=== PATIENT | male | born 1950 | race Caucasian/White ===

== ENCOUNTER 2021-01-22 15:26 | Inpatient (IN) | payer MEDICARE ==
[~2021-01-22] VITALS: Ht 170.2 cm; Wt 79.8 kg
[~2021-01-22 15:26] MED LIST: ACETAMINOPHEN 325 MG TABLET PO PRN; AMLO-250 PO; ATOR40TA70 PO; BISACODYL 10 MG SUPP (DULCOLAX) PR PRN; CALC-823 PO; CALCIUM CARBONATE 500 MG (TUMS) TAB.CHEW PO PRN; CETI10TA17 PO; CLOP75TA28 PO; DOCUSATE SODIUM 100 MG (COLACE) CAP PO PRN; DOXA8TAB73 PO; FAMO20TA3 PO; FLEET ENEMA ADULT 1 EA BTL PR PRN; ISOS30TA82 PO; LACTULOSE SYRUP 10GM/15ML (ENULOSE) 30ML UDC PO PRN; LEVE500T99 PO; LOPERAMIDE 2 MG (IMODIUM) TABLET PO PRN; LOSA50TA63 PO; ONDANSETRON 4 MG (ZOFRAN) ORAL DISSOLVE TAB PO PRN; diphenhydrAMINE 25 MG TAB (BENADRYL) PO PRN; guaiFENesin/CODEINE (ROBITUSSIN AC) 10ML UDC PO PRN
--- NOTE | 2021-01-22 15:56 | Physical Therapy Evaluation ---
PT Evaluation-General Medical Diagnosis Admission Date Jan 22, 2021 at 15:26 Medical Diagnosis: IVH/IPH Onset Date: Jan 20, 2021 Therapy Diagnosis Therapy Diagnosis: impaired mobility, strength, endurance, balance Referral Physician: Lorenza Yates DO Reason for Referral: Evaluation/Treatment Medical History Pertinent Medical History: HTN Reviewed History: Yes Social History Home: Single Level Current Living Status: Spouse Entry Into Home: Ramp Patient has a disabled son who uses the ramp. He also has 2 steps to enter in the front or back with no handrails. Prior Prior Level of Function SCALE: Activities may be completed with or without assistive devices. 4-Idbzemcriu-sctsgxh completes the activity by him/herself with no assistance from a helper. 5-Set-up or Clean-up Assistance-helper sets up or cleans up; patient completes activity. [place] assists only prior to or following the activity. 4-Supervision or Touching Assistance-helper provides verbal cues and/or touching/steadying and/or contact guard assistance as patient completes activity. Assistance may be provided throughout the activity or intermittently. 3-Partial/Moderate Assistance-helper does LESS THAN HALF the effort. [place] lifts, holds or supports trunk or limbs, but provides less than half the effort. 2-Substantial/Maximal Assistance-helper does MORE THAN HALF the effort. [place] lifts or holds trunk or limbs and provides more than half the effort. 9-Ypdkvtydf-yxhieg does ALL the effort. Patient does none of the effort to complete the activity. Or, the assistance of 2 or more helpers is required for the patient to complete the activity. If activity was not attempted, code reason: 7-Patient Refused. 9-Not Applicable-not attempted and the patient did not perform the activity before the current illness, exacerbation or injury. 10-Not Attempted due to Environmental Limitations-(lack of equipment, weather restraints, etc.). 88-Not Attempted due to Medical Conditions or Safety Concerns. Bed Mobility: 6 Transfers (B,C,W/C): 6 Gait: 6 Stairs: 6 Indoor Mobility (Ambulation): Independent Stairs: Independent PT Evaluation-Current Subjective Patient in bed pre tx, agrees to PT, has no complaints of pain Pt/Family Goals to be independent at home Objective Patient Orientation: Person, Mumbles ROM/Strength ROM Lower Extremities WNL Strength Lower Extremities LLE (hip flexion 3+/5, knee flexion 4/5, knee extension 4/5, dorsiflexion 4+/5), RLE (hip flexion 3+/5, knee flexion 4+/5, knee extension 4+/5, dorsiflexion 4+/5) Neuromuscular (Tone, Coordination, Reflexes) Patient seems to have intact peripheral vision but had trouble tracking on both sides. Sensory Hearing: Functional Sensation Right Lower Extremit: Intact Sensation Left Lower Extremity: Intact Transfers Roll Left & Right (QC): 6 Sit to Lying (QC): 6 Lying to Sitting/Side of Bed(Q: 6 Sit to Stand (QC): 4 Chair/Vqn-oj-Jakhm Xfer(QC): 4 Toilet Transfer (QC): 4 Car Transfer (QC): 4 Patient performs bed mobility and supine <-> sit with independence, sit <-> stand and transfers CGA, car transfer CGA. Patient needs cues for hand placement and safety. Gait Does the Patient Walk?: Yes Mode of Locomotion: Walk Anticipated Mode of Locomotion: Walk Walk 10 feet (QC): 4 Walk 50 ft with 2 Turns(QC): 4 Walk 150 ft (QC): 4 Walking 10ft/uneven surface-QC: 4 Distance: 150' Gait Assistive Device: FWW Comments/Gait Description Patient can ambulate 150' with CGA (including 50' with at least 2 turns of 90 degrees and 10' over an uneven surface). Patient has decreased coordination with stepping with his right leg, unsteady but no complete LOB. Wheelchair Training Does the Pt Use a Wheelchair?: No Wheel 50 ft with 2 turns (QC): 9 Wheel 150 ft (QC): 9 Stairs #of Steps: 1 1 Step (curb) (QC): 4 4 Steps (QC): 88 12 Steps (QC): 88 Patient can go up and down 1 step using a rolling walker with CGA, cues for foot placement and safety. Balance Sitting Static: Normal Sitting Dynamic: Normal Standing Static: Fair Standing Dynamic: Fair Picking up an Object (QC): 4 Assessment/Needs Patient has impaired mobility, strength, endurance, balance. Patient in bed post tx with nurse call, phone, tray, bed alarm on. Patient is moderately impulsive, decreased coordination in right leg with ambulation, CGA with most mobility but needs cues for safety. Rehab Potential: Fair PT Short Term Goals Short Term Goals Time Frame: Jan 29, 2021 Roll Left & Right: 6 Sit to lyin Lying to sitting on side of be: 6 Sit to stand: 4 (SBA) Chair/pms-ej-llsdb transfer: 4 (SBA) Walk 10 feet: 4 (SA) Walk 50 feet with two turns: 4 (SBA) PT Mcc Goals Mcc Goals PT Audioprosthologist Goals Time Frame: Feb 12, 2021 Roll Left & Right (QC): 6 Sit to Lying (QC): 6 Lying-Sitting on Side/Bed(QC): 6 Sit to Stand (QC): 5 Chair/[place]oz-uk-Pomcn Xfer(QC): 5 Toilet Transfer (QC): 5 Car Transfer (QC): 5 Does the Patient Walk: Yes Walk 10 feet (QC): 5 Walk 50ft with 2 Turns (QC): 5 Walk 150 ft (QC): 5 Walking 10ft on Uneven Surface: 5 1 Step (curb) (QC): 4 4 Steps (QC): 4 12 Steps (QC): 88 Picking up an Object (QC): 4 Wheel 50 feet with 2 turns (QC: 9 Wheel 150 feet: 9 PT Plan Problem List Problem List: Activity Tolerance, Functional Strength, Safety, Balance, Gait, Transfer, Bed Mobility, ROM Treatment/Plan Treatment Plan: Continue Plan of Care Treatment Plan: Bed Mobility, Education, Functional Activity Rizwan, Functional Strength, Group Therapy, Gait, Safety, Therapeutic Exercise, Transfers Treatment Duration: Feb 12, 2021 Frequency: At least 5 of 7 days/Wk (IRF) Estimated Hrs Per Day: 1.5 hours per day Patient and/or Family Agrees t: Yes Safety Risks/Education Patient Education: Gait Training, Transfer Techniques, Steps, Correct Positioning, Safety Issues Teaching Recipient: Patient Teaching Methods: Demonstration, Discussion Response to Teaching: Reinforcement Needed Discharge Recommendations Plan Patient will perform bed mobility and transfer training, balance and endurance training, functional strengthening, stair training, gait training, and education, to improve functional mobility and independence at home. Therapy Discharge Recommendati: Home & Family Time/GCodes Time In: 1530 Time Out: 1540 Total Billed Treatment 1 visit MAC LOBATO PT Jan 22, 2021 15:56
--- NOTE | 2021-01-22 15:57 | Occupational Therapy Eval ---
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 01/01/21 L frontal bur hole placement with external ventricular drain. 01/13 ventriculostomy removed. 01/22 transfer to [facility] for continued medication management and skilled therapy. Social History Home: Single Level Current Living Status: Spouse Entry Into Home: Ramp (on porch), Stairs With Railing Steps Into Home: 2 ADL-Prior Level of Function SCALE: Activities may be completed with or without assistive devices. 9-Rktncetpph-xxbbuvy completes the activity by him/herself with no assistance from a helper. 5-Set-up or Clean-up Assistance-helper sets up or cleans up; patient completes activity. [place] assists only prior to or following the activity. 4-Supervision or Touching Assistance-helper provides verbal cues and/or touching/steadying and/or contact guard assistance as patient completes activity. Assistance may be provided throughout the activity or intermittently. 3-Partial/Moderate Assistance-helper does LESS THAN HALF the effort. [place] lifts, holds or supports trunk or limbs, but provides less than half the effort. 2-Substantial/Maximal Assistance-helper does MORE THAN HALF the effort. [place] lifts or holds trunk or limbs and provides more than half the effort. 4-Soigxqsjr-fgaxvs does ALL the effort. Patient does none of the effort to complete the activity. Or, the assistance of 2 or more helpers is required for the patient to complete the activity. If activity was not attempted, code reason: 7-Patient Refused. 9-Not Applicable-not attempted and the patient did not perform the activity befo re the current illness, exacerbation or injury. 10-Not Attempted due to Environmental Limitations-(lack of equipment, weather re straints, etc.). 88-Not Attempted due to Medical Conditions or Safety Concerns. ADL PLOF Comments Pt indicates IND with ADLs and functional mobility, no AD/AE. Pt's primarily completes cooking and cleaning. Self Care: Independent Functional Cognition: Independent DME/Equipment: Bath Chair, Shower OT Current Status Subjective Pt agreeable to OT evaluation, does not report pain during tx. Mental Status/Objective Patient Orientation: Person, Place, Situation Attachments: Sahu Catheter Current Glasses/Contacts: Yes (reading) Hearing Aids: No Dentures/Partials: No Hand Dominance: Right Upper Extremity ROM WFL, BUE shoulder flexion to approx 140 degrees Upper Extremity Coordination WFL Upper Extremity Sensation WFL Upper Extremity Strength grossly 3+/5 BUEs ADL-Treatment Eating (QC): 7 Oral Hygiene (QC): 7 Shower/Bathe Self (QC): 7 Upper Body Dressing (QC): 7 Lower Body Dressing (QC): 7 On/Off Footwear (QC): 7 Toileting Hygiene (QC): 7 Other Treatments OT evaluation complete. OT educated pt on purpose and benefit of OT, he verbalized understanding. Pt and family provided information about PLOF and home set up, and participated in UE screen. Pt educated on ARU process and expectations. Per PT evalaution, bed mobility and supine <-> sit IND, sit <-> stand CGA, car transfer CGA. Skilled cues for hand placement and safety. Pt performed functional mobility 150' with CGA (including 10' over uneven surface). Post OT eval, pt laying in bed, call light in reach and all need met. Bed alarm on. Education OT Patient Education: Correct positioning, Modified ADL techniques, Progress toward Goal/Update tx plan, Purpose of tx/functional activities, Rehab process Teaching Recipient: Patient Teaching Methods: Discussion Response to Teaching: Verbalize Understanding OT Short Term Goals Short Term Goals Time Frame: Feb 02, 2021 Oral hygiene: 5 Toileting hygiene: 4 Shower/bathe self: 4 Upper body dressin Lower body dressin OT Facility Sales And Admin Goals Residential Goals Time Frame: Feb 20, 2021 Eating (QC): 6 Oral Hygiene (QC): 6 Toileting Hygiene (QC): 6 Shower/Bathe Self (QC): 6 Upper Body Dressing (QC): 6 Lower Body Dressing (QC): 6 On/Off Footwear (QC): 6 Additional Goals: 1-Demonstrate ADL Tasks, 2-Verbalize Understanding, 3- ImproveStrength/Rizwan 1=Demonstrate adherence to instructed precautions during ADL tasks. 2=Patient will verbalize/demonstrate understanding of assistive devices/modifications for ADL. 3=Patient will improve strength/tolerance for activity to enable patient to perform ADL's. OT Education/Plan Problem List/Assessment Assessment: Decreased Activ Tolerance, Decreased UE Strength, Impaired Funct B alance, Impaired I ADL's, Impaired Self-Care Skills Discharge Recommendations Plan/Recommendations: Continue POC Treatment Plan/Plan of Care Patient would benefit from OT for education, treatment and training to promote independence in ADL's, mobility, safety and/or upper extremity function for ADL's. Plan of Care: ADL Retraining, Functional Mobility, Group Exercise/Act as Ind, UE Funct Exercise/Act Treatment Duration: Feb 20, 2021 Frequency: At least 5 of 7 days/Wk (IRF) Estimated Hrs Per Day: 1.5 hours per day Rehab Potential: Fair Time/GCodes Start Time: 15:40 Stop Time: 15:50 Total Time Billed (hr/min): 10 Billed Treatment Time 1, ELISEO CR OT Jan 22, 2021 15:57
--- NOTE | 2021-01-22 18:13 | PM&R Post Admission Assessment ---
PM&R Date of Visit: Jan 22, 2021 Time of Visit: 18:30 History of Present Illness CC: Hemmorhagic stroke HPI: This is a 70yoWM with a history of right hemorrhagic stroke with extension into ventricles s/p left frontal del hole placement of the external ventricular ostomy on 01/01 with removal on 01/13 and residual left-sided weakness and anemia in need of further evaluation and strengthening prior to going home with his . Patient arise from [place]. He did have a sitter there most of the time. Upon arrival he pulled out his Sahu catheter. We will initiate antipsychotics as needed for agitation and dementia related issues. In and out caths will be performed. Urology will be consulted. Past Qzxantu-Pargpr-Ywuvnv Hx Past Med/Social Hx: Reviewed Nursing Past Med/Soc Hx, Reviewed and Corrections made Patient Social History Marrital Status: Employed/Student: retired (Construction) Alcohol Use: Past History Alcohol Beverage of Choice: Beer Smoking Status: Former Smoker Past Medical History Cardiac: High Cholesterol, Hypertension Neurological: Stroke Prior Level of Function Bed Mobility: 6 Transfers: 6 Gait: 6 Stairs: 6 Indoor Mobility (Ambulation): Independent Stairs: Independent Self Care: Independent Functional Cognition: Independent Current Level of Fuctioning Roll Left to Right: 6 Sit to Lyin Lying to Sitting/Side of Bed: 6 Sit to Stand: 4 Chair/Hdx-ti-Dhzqe Xfer: 4 Car Transfer: 4 Does the Patient Walk: Yes Mode of Locomotion: Walk Anticipated Mode of Locomotion: Walk Walk 10 feet: 4 Walk 50 ft with 2 Turns: 4 Walk 150 ft: 4 Walking 10ft on uneven surface: 4 Gait Assistive Device: FWW Does the Pt Use a Wheelchair: No Wheel 50 ft with 2 turns: 9 Wheel 150 ft: 9 #of Steps: 1 1 Step (curb): 4 4 Steps: 88 12 Steps: 88 Picking up an Object: 4 Eatin Oral Hygiene: 7 Shower/Bathe Self: 7 Upper Body Dressin Lower Body Dressin On/Off Footwear: 7 Toileting Hygiene: 7 PM&R Allergy/Meds/Data Review Allergies Coded Allergies: No Known Drug Allergies (Unverified , 01/22/21) Home Medications Scheduled Amlodipine Besylate (Amlodipine Besylate), 5 MG PO DAILY, (Reported) Atorvastatin Calcium (Atorvastatin Calcium), 40 MG PO DAILY, (Reported) Cetirizine HCl (Cetirizine HCl), 10 MG PO DAILY, (Reported) Clopidogrel Bisulfate (Clopidogrel), 75 MG PO DAILY, (Reported) Doxazosin Mesylate (Doxazosin Mesylate), 8 MG PO DAILY, (Reported) Famotidine (Acid Compressed Gas Plant Worker (FAMOTIDINE)), 20 MG PO DAILY, (Reported) Isosorbide Mononitrate (Isosorbide Mononitrate ER), 30 MG PO DAILY, (Reported) Levetiracetam (Keppra), 500 MG PO Q12H, (Reported) Losartan Potassium (Losartan Potassium), 50 MG PO DAILY, (Reported) Losartan Potassium (Losartan Potassium), 25 MG PO HS, (Reported) Scheduled PRN Calcium Carbonate (Calcium), 500 MG PO ACHS PRN for HEARTBURN, (Reported) Current Medications Current Medications Reviewed Review of Systems Constitutional: see HPI, malaise, weakness EENTM: no symptoms reported Respiratory: no symptoms reported Cardiovascular: no symptoms reported Gastrointestinal: no symptoms reported Genitourinary: other (Retention) Musculoskeletal: back pain Skin: see HPI Psychiatric/Neurological: Anxiety, Depressed, Other (Confusion) Physical Exam Physical Exam Vital Signs Vital Signs - First Documented 01/22/21 17:01 O2 Delivery Room Air Capillary Refill : Height, Weight, BMI Height: '" Weight: lbs. oz. kg; 27.20 BMI Method: General Appearance: No Apparent Distress, WD/WN, Chronically ill, Thin Eyes: Bilateral Eye Normal Inspection, Bilateral Eye PERRL HEENT: PERRL/EOMI, Normal ENT Inspection, Pharynx Normal Neck: Full Range of Motion, Normal Inspection, Non Tender, Supple, Carotid Bruit Respiratory: Chest Non Tender, Lungs Clear, Normal Breath Sounds, No Accessory Muscle Use, No Respiratory Distress Cardiovascular: Regular Rate, Rhythm, No Edema, No Gallop, No JVD, No Murmur, Normal Peripheral Pulses Gastrointestinal: Normal Bowel Sounds, No Organomegaly, No Pulsatile Mass, Non Tender, Soft Back: Normal Inspection, No CVA Tenderness, No Vertebral Tenderness Extremity: Normal Capillary Refill, Normal Inspection, Normal Range of Motion, Non Tender, No Calf Tenderness, No Pedal Edema Neurologic/Psychiatric: Alert, No Motor/Sensory Deficits, Normal Mood/Affect, Abnormal Gait, Disoriented, Motor Weakness (Generalized weakness) Skin: Normal Color, Warm/Dry Lymphatic: No Adenopathy PM&R Medical Assessment & Plan REHAB/MEDICAL ASSESSMENT AND PLAN: REHAB IMPAIRMENT GROUP: Hemorrhagic CVA ETIOLOGIC DIAGNOSIS: Hemorrhagic CVA The comorbidities that impact the patients function and/or functional outcome by: Advanced age, encephalopathy, urinary retention, hypertension REHAB PLAN: The patient is being admitted to our comprehensive inpatient rehabilitation facility and can tolerate the intensity of service consisting of at least: 180 minutes of therapy a day, 5 out of 7 days a week Rehab treatment will consist of: PT and OT will focus on regaining function with improved stamina and ambulation and ADL independence The patient/family has a good understanding of our discharge process and will benefit from an interdisciplinary inpatient rehabilitation program. The patient has potential to make improvement and is in need of at least two of the following multidisciplinary therapies including but not limited to physical, occupational, speech, and prosthetics and orthotics. Additionally the patient will need services from respiratory, nutritional services, wound care, psychology, etc. (Customize this to each patient). Given the patients complex condition and risk of further medical complications, rehabilitation services cannot be safely or effectively provided at a lower level of care such as a penitentiary facility. BARRIERS TO DISCHARGE: Confusion ESTIMATED LOS: 14 days DISPOSITION: Home RELEVANT CHANGES SINCE PREADMISSION SCREENING: I have compared the patients medical and functional status at the time of the preadmission screening and there are: no changes PROGNOSIS: Fair REHABILITATION GOALS: 1. PT and OT will focus on regaining function with improved stamina and ambulation and ADL independence and speech therapy will help with cognition All the above goals were reviewed with the patient and he/she is in agreement. By signing this document, I acknowledge that I have personally performed a full physical examination on this patient within 24 hours of admission to this inpatient rehabilitation facility and have determined the patient to be able to tolerate the above course of treatment at an intensive level for a reasonable period of time. I will be completing a detailed individualized Plan of Care for this patient by day #4 of the patients stay based upon the Preadmission Screen, the Post-Admission Evaluation, and the therapy evaluations. Admission Dx/Comorbidities: (1) Hemorrhagic stroke ICD Codes: I61.9 - Nontraumatic intracerebral hemorrhage, unspecified Assessment/Plan Assessment and Plan Assess & Plan/Chief Complaint Assessment: Hemorrhagic stroke Encephalopathy Urinary retention Pulled Sahu catheter out bulb intact upon arrival on 01/22/2021 Hypertension Hyperlipidemia Plan: Aggressive rehabilitation Urology consult Antipsychotics for encephalopathy RIGOBERTO HODGES DO Jan 22, 2021 18:13
[2021-01-22] MEDS ORDERED: NON-FORMULARY MEDICATION 1 EA EA (Calcium Carbonate (Calcium) 500 MG) PO PRN (18:30)
[2021-01-22] MEDS ORDERED: CALCIUM CARBONATE 500 MG (TUMS) TAB.CHEW PO PRN (19:00)
[2021-01-22] MEDS ORDERED: HALOPERIDOL 5 MG/ML (HALDOL) VIAL IM PRN (19:15)
[2021-01-22] MEDS: polyethylene glycoL POWDER 17 GM (MIRALAX) PACK PO SCH (19:28)
[2021-01-22] MEDS: SENNA W/DOCUSATE (SENOKOT S) TABLET PO SCH (19:41)
[2021-01-22] MEDS: DOCUSATE SODIUM 100 MG (COLACE) CAP PO SCH (19:41)
[2021-01-22] MEDS: ALPRAZolam 0.25 MG (XANAX) TAB PO PRN (19:41)
[2021-01-22] MEDS: LOSARTAN 50 MG (COZAAR) TAB PO SCH (19:41)
[2021-01-22] MEDS: OLANZapine 5 MG (ZyPREXA) TAB PO SCH (19:41)
[2021-01-22] MEDS: LORazepam INJ 2 MG/ML (ATIVAN) VIAL IM PRN (20:01)
[2021-01-22 23:07] VITALS: BP 136/72
[2021-01-23] MEDS: WATER (STERILE) FOR INJ 10 ML BTL INJ PRN ×2 (00:42→18:22)
[2021-01-23] MEDS: ZIPRASIDONE 20 MG INJ (GEODON) VIAL IM PRN ×2 (00:42→18:18)
[2021-01-23 05:56] LABS: BASOPHILS # (AUTO) 0.1 10^3/uL (0.0-0.1); BASOPHILS % (AUTO) 1 % (0-10); EOSINOPHILS # (AUTO) 0.2 10^3/uL (0.0-0.3); EOSINOPHILS % (AUTO) 3 % (0-10); HEMATOCRIT 29 % (40-54); LYMPHOCYTES # (AUTO) 2.3 10^3/uL (1.0-4.0); LYMPHOCYTES % (AUTO) 25 % (12-44); MEAN CORPUSCULAR HEMOGLOBIN 31 pg (25-34); MEAN CORPUSCULAR HGB CONC 34 g/dL (32-36); MEAN CORPUSCULAR VOLUME 90 fL (80-99); MEAN PLATELET VOLUME 9.8 fL (9.0-12.2); MONOCYTES # (AUTO) 0.9 10^3/uL (0.0-1.0); MONOCYTES % (AUTO) 10 % (0-12); NEUTROPHILS # (AUTO) 5.7 10^3/uL (1.8-7.8); NEUTROPHILS % (AUTO) 62 % (42-75); PLATELET COUNT 327 10^3/uL (130-400); WHITE BLOOD COUNT 9.3 10^3/uL (4.3-11.0)
[2021-01-23] MEDS ORDERED: BETHANECHOL 10 MG (URECHOLINE) TAB PO SCH (06:00)
[2021-01-23 06:08] LABS: ALBUMIN 3.5 GM/DL (3.2-4.5)
[2021-01-23 06:09] LABS: POTASSIUM 4.2 MMOL/L (3.6-5.0)
[2021-01-23 06:10] LABS: CALCIUM 9.2 MG/DL (8.5-10.1)
[2021-01-23 06:11] LABS: TOTAL PROTEIN 6.9 GM/DL (6.4-8.2)
[2021-01-23 06:13] LABS: BILIRUBIN,TOTAL 0.5 MG/DL (0.1-1.0)
[2021-01-23 06:15] LABS: CREATININE SERUM 1.18 MG/DL (0.60-1.30)
--- NOTE | 2021-01-23 06:20 | Individualized Plan of Care ---
Individualized Plan of Care Rehab Nursing IPOC Order Admission Date Jan 22, 2021 at 15:26 Current Orders Orders Admission Order(Inpt,Obs,Sdc) (01/22/21 12:25) Vital Signs: Per Unit Policy ( ,16,00 (01/22/21 12:25) Joey Rebolledo (01/22/21 12:25) Sequential Compression Device .admit (01/22/21 12:25) Glove Turner And Former-Inpt Rehab Con (01/22/21 12:25) Rehab Nursing Orders-Ipoc (01/22/21 12:25) Physical Therapy Rehab Orders (01/22/21 12:25) Occupational Therapy Rehab Ord (01/22/21 12:25) Speech Therapy Rehab Orders (01/22/21 12:25) Cbc With Automated Diff (01/23/21 06:00) Comprehensive Metabolic Panel (01/23/21 06:00) Precautions (Aru) (01/22/21 12:25) Rehab-Intensity Of Therapy (01/22/21 12:25) Initiate Admission Nursing Pro .admission (01/22/21 12:25) Acetaminophen Tablet/Caplet (Tylenol T (01/22/21 12:30) Alprazolam Tablet (Xanax Tablet) (01/22/21 12:30) Calcium Carbonate Chew Tablet (Antacid C (01/22/21 12:30) Diphenhydramine Tablet (Benadryl Tablet) (01/22/21 12:30) Docusate Sodium Capsule (Colace Capsule) (01/22/21 21:00) Docusate Sodium Capsule (Colace Capsule) (01/22/21 12:30) Bisacodyl Suppository (Dulcolax Supposit (01/22/21 12:30) Lactulose Oral Solution (Enulose Oral So (01/22/21 12:30) Na Phos/Na Biphos Enema (Fleet Enema Antwan (01/22/21 12:30) Guaifenesin/Codeine Syrup (Robitussin Ac (01/22/21 12:30) Loperamide Tablet (Imodium Tablet) (01/22/21 12:30) Melatonin Tablet (Melatonin Tablet) (01/22/21 12:30) Polyethylene Glycol Powder Pkt (Miralax (01/22/21 21:00) Ondansetron Oral Dissolve Tab (Zofran (01/22/21 12:30) Senna S Tablet (Senokot S Tablet) (01/22/21 21:00) Initiate Admission Nursing Pro .admission (01/22/21 12:25) Code/Resuscitation (01/22/21 12:25) Admission Arrival Bed Request (01/22/21 15:28) Patient Visit (01/22/21 ) Pt Eval Moderate Complexity (01/22/21 ) Amlodipine Tablet (Norvasc Tablet) (01/23/21 09:00) Atorvastatin Tablet (Lipitor) (01/23/21 09:00) Clopidogrel Tablet (Plavix Tablet) (01/23/21 09:00) Famotidine Tablet (Pepcid Tablet) (01/23/21 09:00) Isosorbide Mononitrate Tablet (Imdur Tab (01/23/21 09:00) Levetiracetam Tablet (Keppra Tablet) (01/22/21 21:00) Losartan Tablet (Cozaar Tablet) (01/22/21 21:00) Losartan Tablet (Cozaar Tablet) (01/23/21 09:00) (Nf) Calcium Carbonate (Calcium) (01/22/21 18:30) (Nf) Cetirizine Hcl (01/23/21 09:00) (Nf) Doxazosin Mesylate (01/23/21 09:00) Loratadine Tablet (Claritin Tablet) (01/23/21 09:00) Calcium Carbonate Chew Tablet (Antacid C (01/22/21 19:00) Doxazosin Tablet (Cardura Tablet) (01/23/21 09:00) Bladder Scan-Straight Cath-Pos (01/22/21 19:03) Olanzapine Tablet (Zyprexa Tablet) (01/22/21 21:00) Haloperidol Injection (Haldol Injectio (01/22/21 19:15) Ziprasidone Injection (Geodon Injection) (01/22/21 19:15) Water (Sterile) For Injection (Sterile W (01/22/21 19:15) Lorazepam Injection (Ativan Injection) (01/22/21 19:15) Consult Urology (01/22/21 21:45) Bethanechol Tablet (Urecholine Tablet) (01/23/21 06:00) Bethanechol Tablet (Urecholine Tablet) (01/23/21 11:00) Tamsulosin Capsule (Flomax Capsule) (01/23/21 18:00) Patient Visit (01/23/21 ) Speech Sound Lang Comp (01/23/21 ) Treat. Speech/Lang/Voice (01/23/21 ) Patient Visit (01/23/21 ) Gait Training, Ea 15 Min (01/23/21 ) Functional Activities, Ea 15 (01/23/21 ) Exercise Therap, Ea 15 Min (01/23/21 ) Patient Visit (01/23/21 ) Dys2 Mechanically Altered (01/23/21 Dinner) Rehab Nursing Orders: Ongoing Assess. of Cognitive Status, Ongoing Assess. of Function Status, Bladder Management, Bladder Scan, Bladder Training, Bowel Management, Bowel Training, Disease Management & Educaiton, DVT Prophylaxis, Fall Prevention, Fluid/Electrolyte/Nutrition Mgmt, Infection Prevention, Medication Management & Education, Management of Risks & Complications, Nutrition Management, Pain Management, Patient/Family Support, Safety Management, Swallow Precautions Intensity of Therapy to be met Patient to be seen: Min.3h per day/5 of 7d PT IPOC Problem List: Activity Tolerance, Functional Strength, Safety, Balance, Gait, Transfer, Bed Mobility, ROM Treatment Plan: Continue Plan of Care Bed Mobility, Education, Functional Activity Rizwan, Functional Strength, Group Therapy, Gait, Safety, Therapeutic Exercise, Transfers Treatment Duration: Feb 12, 2021 Frequency: At least 5 of 7 days/Wk (IRF) Estimated Hrs Per Day: 1.5 hours per day OT IPOC Problems: Decreased Activ Tolerance, Decreased UE Strength, Impaired Funct Balance, Impaired I ADL's, Impaired Self-Care Skills OT Treatment, Training and Edu: Yes Plan of Care: ADL Retraining, Functional Mobility, Group Exercise/Act as Ind, UE Funct Exercise/Act Treatment Duration: Feb 20, 2021 Frequency: At least 5 of 7 days/Wk (IRF) Estimated Hrs Per Day: 1.[address] IPOC Speech Therapy Treatment Plan: Continue Plan of Care Treatment Duration: Jan 23, 2021 Frequency: 3 times per week Estimated Hrs Per Day: .5 hour per day Gl[facility] Former/Case Mgmt Gl[employer] Former/Case Managemen: Discharge Planning Dietitian/Civil Celebrant Dietitian/Civil Celebrant to monitor nutritional status and make changes and/or recommendations as needed and work with speech pathology on dietary upgrades as the occur. Physician IPOC Medical Issues being managed closely and that require the 24 hour availability of a physician: Severe confusion following hemorrhagic stroke will require cognitive training close monitoring for fall risk due to increased confusion Medical Issues: Bowel/Bladder Function, DVT Prophylaxis, Falls Precautions, Fluid/Electrolyte/Nutrition Balance, Infection Protection, Pain Management Brief Synthesis of Preadmission Screen, Post-Admission Evaluation, and Therapy Evaluations: PT and OT will focus on regaining ambulation with fall risk prevention with the use of assistive devices and speech therapy will work on cognition Medical Prognosis: Fair Anticipated Length of Stay: 10 days RIGOBERTO HODGES DO Jan 23, 2021 06:20
--- NOTE | 2021-01-23 06:20 | PM&R Progress Note ---
Subjective HPI/CC On Admission Date Seen by Provider: Jan 23, 2021 Time Seen by Provider: 10:00 Subjective/Events-last exam 01/23/21: Pt doing very well medically but he is very difficult to redirect Hgb 10 One on one sitter now Ativan and Xanax given last night Zyprexa helped im sleep until 3:00 In and out caths ordered by urology consults Review of Systems General: Fatigue Neurological: Weakness, Incoordination, Confusion Objective Exam Vital Signs Vital Signs Date Time Temp Pulse Resp B/P (MAP) Pulse Ox O2 Delivery O2 Flow Rate FiO2 01/23/21 20:00 36.5 94 20 146/75 (98) 97 Room Air Capillary Refill : General Appearance: No Apparent Distress, WD/WN, Chronically ill, Thin HEENT: PERRL/EOMI, Normal ENT Inspection, Pharynx Normal Neck: Full Range of Motion, Normal Inspection, Non Tender, Supple, Carotid Bruit Respiratory: Chest Non Tender, Lungs Clear, Normal Breath Sounds, No Accessory Muscle Use, No Respiratory Distress Cardiovascular: Regular Rate, Rhythm, No Edema, No Gallop, No JVD, No Murmur, Normal Peripheral Pulses Gastrointestinal: Normal Bowel Sounds, No Organomegaly, No Pulsatile Mass, Non Tender, Soft Back: Normal Inspection, No CVA Tenderness, No Vertebral Tenderness Extremity: Normal Capillary Refill, Normal Inspection, Normal Range of Motion, Non Tender, No Calf Tenderness, No Pedal Edema Neurologic/Psychiatric: Alert, No Motor/Sensory Deficits, Normal Mood/Affect, Abnormal Gait, Disoriented, Motor Weakness (Generalized weakness) Skin: Normal Color, Warm/Dry Lymphatic: No Adenopathy Results/Procedures Lab Laboratory Tests 01/23/21 05:37 Patient resulted labs reviewed. FIM Transfers Therapy Code Descriptions/Definitions Functional [place] Measure: 0=Not Assessed/NA 4=Minimal Assistance 1=Total Assistance 5=Supervision or Setup 2=Maximal Assistance 6=Modified [place] 3=Moderate Assistance 7=Complete IndependenceSCALE: Activities may be completed with or without assistive devices. 3-Jadshbsmgo-xneerwh completes the activity by him/herself with no assistance from a helper. 5-Set-up or Clean-up Assistance-helper sets up or cleans up; patient completes activity. [place] assists only prior to or following the activity. 4-Supervision or Touching Assistance-helper provides verbal cues and/or touching/steadying and/or contact guard assistance as patient completes activity. Assistance may be provided throughout the activity or intermittently. 3-Partial/Moderate Assistance-helper does LESS THAN HALF the effort. [place] li fts, holds or supports trunk or limbs, but provides less than half the effort. 2-Substantial/Maximal Assistance-helper does MORE THAN HALF the effort. [place] lifts or holds trunk or limbs and provides more than half the effort. 6-Sgupmnfpw-dlczuh does ALL the effort. Patient does none of the effort to complete the activity. Or, the assistance of 2 or more helpers is required for the patient to complete the activity. If activity was not attempted, code reason: 7-Patient Refused. 9-Not Applicable-not attempted and the patient did not perform the activity before the current illness, exacerbation or injury. 10-Not Attempted due to Environmental Limitations-(lack of equipment, weather restraints, etc.). 88-Not Attempted due to Medical Conditions or Safety Concerns. Roll Left to Right (QC): 6 Sit to Lying (QC): 6 Sit to Stand (QC): 4 Chair/Kzo-bw-Ypdbr Xfer(QC): 4 Car Transfer (QC): 4 Gait Training Does the Patient Walk?: Yes Walk 10 feet (QC): 4 Walk 50 ft with 2 Turns(QC): 4 Walk 150 ft (QC): 4 Walking 10ft/uneven surface-QC: 4 Gait Assistive Device: FWW Wheelchair Training Does the Pt Use a Wheelchair?: No Wheel 50 ft with 2 turns (QC): 9 Wheel 150 ft (QC): 9 Stair Training #of Steps: 1 1 Step (curb) (QC): 4 4 Steps (QC): 88 12 Steps (QC): 88 Balance Picking up an Object (QC): 4 ADL-Treatment Eating (QC): 7 Oral Hygiene (QC): 7 Shower/Bathe Self (QC): 7 Upper Body Dressing (QC): 7 Lower Body Dressing (QC): 7 On/Off Footwear (QC): 7 Toileting Hygiene (QC): 7 Assessment/Plan Assessment and Plan Assess & Plan/Chief Complaint Assessment: Hemorrhagic stroke Encephalopathy Urinary retention Pulled Sahu catheter out bulb intact upon arrival on 01/22/2021 Hypertension Hyperlipidemia Plan: Aggressive rehabilitation Urology consult Antipsychotics for encephalopathy 01/23/21: Monitor confusion Zyprexa and anti-psychotics (1) Hemorrhagic stroke RIGOBERTO HODGES DO Jan 23, 2021 06:20
[2021-01-23] MEDS: DOCUSATE SODIUM 100 MG (COLACE) CAP PO SCH ×2 (07:39→23:41)
[2021-01-23] MEDS: FAMOTIDINE 20 MG (PEPCID) TABLET PO SCH (07:39)
[2021-01-23] MEDS: amLODIPine 5 MG (NORVASC) TAB PO SCH (07:39)
[2021-01-23] MEDS: ISOSORBIDE MONONITRATE 30 MG (IMDUR) TAB PO SCH (07:39)
[2021-01-23] MEDS: LOSARTAN 50 MG (COZAAR) TAB PO SCH ×2 (07:39→23:37)
[2021-01-23] MEDS: SENNA W/DOCUSATE (SENOKOT S) TABLET PO SCH ×2 (07:39→23:40)
[2021-01-23] MEDS: LORATADINE (CLARITIN) 10 MG TAB PO SCH (07:39)
[2021-01-23] MEDS: CLOPIDOGREL 75 MG (PLAVIX) TABLET PO SCH (07:39)
[2021-01-23 08:00] VITALS: BP 116/76
--- NOTE | 2021-01-23 08:46 | Occupational Ther Daily Note ---
OT Current Status-Daily Note Subjective Pt agreeable to OT tx wtih focus on ADLs. Impulsive throughout session required cues and assistance for safety. Mental Status/Objective Patient Orientation: Person, Place, Situation ADL-Treatment Therapy Code Descriptions/Definitions Functional [place] Measure: 0=Not Assessed/NA 4=Minimal Assistance 1=Total Assistance 5=Supervision or Setup 2=Maximal Assistance 6=Modified [place] 3=Moderate Assistance 7=Complete IndependenceSCALE: Activities may be completed with or without assistive devices. 5-Tyezkndezv-ieunpzm completes the activity by him/herself with no assistance from a helper. 5-Set-up or Clean-up Assistance-helper sets up or cleans up; patient completes activity. [place] assists only prior to or following the activity. 4-Supervision or Touching Assistance-helper provides verbal cues and/or touching/steadying and/or contact guard assistance as patient completes activity. Assistance may be provided throughout the activity or intermittently. 3-Partial/Moderate Assistance-helper does LESS THAN HALF the effort. [place] li fts, holds or supports trunk or limbs, but provides less than half the effort. 2-Substantial/Maximal Assistance-helper does MORE THAN HALF the effort. [place] lifts or holds trunk or limbs and provides more than half the effort. 9-Lvmfkvgok-oksdqm does ALL the effort. Patient does none of the effort to complete the activity. Or, the assistance of 2 or more helpers is required for the patient to complete the activity. If activity was not attempted, code reason: 7-Patient Refused. 9-Not Applicable-not attempted and the patient did not perform the activity before the current illness, exacerbation or injury. 10-Not Attempted due to Environmental Limitations-(lack of equipment, weather restraints, etc.). 88-Not Attempted due to Medical Conditions or Safety Concerns. Eating (QC): 6 (IND with breakfast.) Oral Hygiene (QC): 3 (Min A standing at sink, assist with standing balance, and moderate verbal/tactile cues for sequencing) Shower/Bathe Self (QC): 3 (Min A standing balance, pt able to wash/dry all parts, moderate verbal cues for sequencing and safety. ) Upper Body Dressing (QC): 4 (SBA) Lower Body Dressing (QC): 3 (Min A standing balance, pt able to don/doff pants and brief.) On/Off Footwear: 4 (SBA, pt able to doff/don gripper socks.) Toileting Hygiene (QC): 3 (min A standing balance, pt stood at toilet to urinate, able to manage clothing) Other Treatment Pt seated in recliner, used FWW to ambulate into bathroom and stood at toilet to urinate, Min A with standing balance. Pt transferred to PA, with multiple cues. Pt doffed clothes, with verbal cues to sit for safety. He then completed shower. Pt required moderate cues for sequencing in order to wash all parts. Pt also attempted to remove base of shower head, and attempted to put soap bottle and attach it to shower head. Assistance provided in order to set soap on bench and hand shower head back onto wall. Pt impulsive throughout shower, requiring cues to remain seated for safety. Pt dried off, then donned clothes at PA. Pt used FWW to stand at sink to brush teeth, moderate verbal/tactile cues for sequencing. OT asked pt to locate toothbrush, he reached and touched the corner of the mirror. OT located toothbrush for pt, he was able to locate past and remove lid. Pt placed toothbrush back on sink and began squeezing toothpaste on his finger. OT cued pt to use toothbrush, he was then able to place toothpaste onto toothbrush and brush his teeth. Pt dried hands wtih paper towels, then placed paper towels, toothbrush, dirty socks, and toothpaste into the cup he used to rinse his mouth. Pt used FWW to return to recliner, min A with functional mobility, as pt shuffled his feet. Pt sat in recliner, removed beads from moderate resistance theraputty in order to increase fine motor strength and coordination as well as improve sequencing and problem solving. Pt initially removed a couple of beads, but then began pulling the putty into thin strips. Post tx, pt seated in recliner, chair alarm on and all needs met. call light in reach. Education OT Patient Education: Correct positioning, Modified ADL techniques, Progress toward Goal/Update tx plan, Purpose of tx/functional activities, Rehab process, Safety issues, Transfer techniques Teaching Recipient: Patient Teaching Methods: Discussion Response to Teaching: Verbalize Understanding OT Short Term Goals Short Term Goals Time Frame: Feb 02, 2021 Oral hygiene: 5 Toileting hygiene: 4 Shower/bathe self: 4 Upper body dressin Lower body dressin OT Pharmacy Service Associate Goals Pharmacy Service Associate Goals Time Frame: Feb 20, 2021 Eating (QC): 6 Oral Hygiene (QC): 6 Toileting Hygiene (QC): 6 Shower/Bathe Self (QC): 6 Upper Body Dressing (QC): 6 Lower Body Dressing (QC): 6 On/Off Footwear (QC): 6 Additional Goals: 1-Demonstrate ADL Tasks, 2-Verbalize Understanding, 3- ImproveStrength/Rizwan 1=Demonstrate adherence to instructed precautions during ADL tasks. 2=Patient will verbalize/demonstrate understanding of assistive dev ices/modifications for ADL. 3=Patient will improve strength/tolerance for activity to enable patient to perform ADL's. OT Education/Plan Problem List/Assessment Assessment: Decreased Activ Tolerance, Decreased Safety Aware, Decreased UE Strength, Impaired Cognition, Impaired Funct Balance, Impaired I ADL's, Impaired Self-Care Skills Discharge Recommendations Plan/Recommendations: Continue POC Treatment Plan/Plan of Care Patient would benefit from OT for education, treatment and training to promote independence in ADL's, mobility, safety and/or upper extremity function for ADL's. Plan of Care: ADL Retraining, Functional Mobility, Group Exercise/Act as Ind, UE Funct Exercise/Act Treatment Duration: Feb 20, 2021 Frequency: At least 5 of 7 days/Wk (IRF) Estimated Hrs Per Day: 1.5 hours per day Rehab Potential: Fair Time/GCodes Start Time: 08:00 Stop Time: 09:00 Total Time Billed (hr/min): 60 Billed Treatment Time 1, ADL 3 (45'), FA (15') ELISEO TEJADA OT Jan 23, 2021 08:46
[2021-01-23] MEDS ORDERED: NON-FORMULARY MEDICATION 1 EA EA (Cetirizine HCl 10 MG) PO SCH (09:00)
[2021-01-23] MEDS ORDERED: NON-FORMULARY MEDICATION 1 EA EA (Doxazosin Mesylate 8 MG) PO SCH (09:00)
[2021-01-23] MEDS: polyethylene glycoL POWDER 17 GM (MIRALAX) PACK PO SCH ×2 (09:29→23:40)
[2021-01-23] MEDS: doxAzosin 4 MG (CARDURA) TAB PO SCH (09:36)
[2021-01-23] MEDS ORDERED: BETHANECHOL 25 MG (URECHOLINE) TAB PO SCH (11:00)
--- NOTE | 2021-01-23 11:02 | Physical Therapy Daily Note ---
PT Daily Note-Current Subjective Pt sitting up in recliner upon arrival to room, agreeable to PT session. No complaints of pain stated. Appearance Following session, pt up in recliner chair with chair alarm activated, telesitter in room. Pt reminded to use call light when needing to get up. [place] present in room following PT session. Mental Status Patient Orientation: Person, Confused Transfers SCALE: Activities may be completed with or without assistive devices. 8-Ztllhgnvac-rmtcoxb completes the activity by him/herself with no assistance from a helper. 5-Set-up or Clean-up Assistance-helper sets up or cleans up; patient completes activity. [place] assists only prior to or following the activity. 4-Supervision or Touching Assistance-helper provides verbal cues and/or touching/steadying and/or contact guard assistance as patient completes activity. Assistance may be provided throughout the activity or intermittently. 3-Partial/Moderate Assistance-helper does LESS THAN HALF the effort. [place] lifts, holds or supports trunk or limbs, but provides less than half the effort. 2-Substantial/Maximal Assistance-helper does MORE THAN HALF the effort. [place] lifts or holds trunk or limbs and provides more than half the effort. 4-Oudhfcnvb-qmimib does ALL the effort. Patient does none of the effort to complete the activity. Or, the assistance of 2 or more helpers is required for the patient to complete the activity. If activity was not attempted, code reason: 7-Patient Refused. 9-Not Applicable-not attempted and the patient did not perform the activity before the current illness, exacerbation or injury. 10-Not Attempted due to Environmental Limitations-(lack of equipment, weather restraints, etc.). 88-Not Attempted due to Medical Conditions or Safety Concerns. Sit to Stand (QC): 4 Chair/Dbp-yr-Ngevh Xfer(QC): 4 SBA for sit to stand frequent verbal cues needed for hand placement and safety awareness. Gait Training Distance: 2 x 150' Walk 150 ft (QC): 3 Gait Assistive Device: FWW Min A for walker mgmt, cueing to maintain walker within close distance and VCS for hand placement on walker. Pt takes small shuffling steps with fatigue, but able to correct with cueing. Exercises Seated Therapy Exercises: Ankle pumps, Long arc quads, Hip flexion Seated Reps: 15 Standing: Hip Abduction, 3 way Ex=Flex, Abd, Ext, Marching, Mini squats Standing Reps: 15 NuStep Minutes: 5 NuStep Workload: 2 Treatments Gait, NuStep, Seated and standing exercises for strengthening. Assessment Current Status: Fair Progress Pt requires frequent verbal and tactile cueing for hand placement and overall safety awareness. Pt with decreased strength LLE compared to RLE with exercises. PT Short Term Goals Short Term Goals Time Frame: Jan 29, 2021 Roll Left & Right: 6 Sit to lyin Lying to sitting on side of be: 6 Sit to stand: 4 (SBA) Chair/dun-io-zrygc transfer: 4 (SBA) Walk 10 feet: 4 (SA) Walk 50 feet with two turns: 4 (SBA) PT [employer] Goals [facility] Goals PT [employer] Goals Time Frame: Feb 12, 2021 Roll Left & Right (QC): 6 Sit to Lying (QC): 6 Lying-Sitting on Side/Bed(QC): 6 Sit to Stand (QC): 5 Chair/Bsq-mm-[place]v Xfer(QC): 5 Toilet Transfer (QC): 5 Car Transfer (QC): 5 Does the Patient Walk: Yes Walk 10 feet (QC): 5 Walk 50ft with 2 Turns (QC): 5 Walk 150 ft (QC): 5 Walking 10ft on Uneven Surface: 5 1 Step (curb) (QC): 4 4 Steps (QC): 4 12 Steps (QC): 88 Picking up an Object (QC): 4 Wheel 50 feet with 2 turns (QC: 9 Wheel 150 feet: 9 PT Plan Problem List Problem List: Activity Tolerance, Functional Strength, Safety, Balance, Gait, Transfer, Bed Mobility, ROM Treatment/Plan Treatment Plan: Continue Plan of Care Treatment Plan: Bed Mobility, Education, Functional Activity Rizwan, Functional Strength, Group Therapy, Gait, Safety, Therapeutic Exercise, Transfers Treatment Duration: Feb 12, 2021 Frequency: At least 5 of 7 days/Wk (IRF) Estimated Hrs Per Day: 1.5 hours per day Patient and/or Family Agrees t: Yes Time/GCodes Time In: 1000 Time Out: 1100 Total Billed Treatment Time: 60 Total Billed Treatment 1 visit GT (15') FA (10') EX (35') HOA MOSES PT Jan 23, 2021 11:02
--- NOTE | 2021-01-23 11:07 | ST Cognitive Linguistic Eval ---
Speech Evaluation-General Medical Diagnosis [facility] Onset Date: Jan 20, 2021 Therapy Diagnosis Therapy Diagnosis: Cognitive-communication Medical History Pertinent Medical History: Dementia, HTN Reviewed History: Yes Social History Current Living Status: Spouse Speech PLF-Current Status Prior Level of Function Patient lives in his home with his . His prior level of independence is unknown. Subjective Patient was cooperative with the cognitive assessment. Language Eval: Auditory Comprehends Simple Yes/No Ques: Mild Indent/Objects Multiple [place]: Moderate Ident/Pics in Multiple [place]: Moderate Follows 1-Step Commands: Mild Follows Complex Directions: Moderate Follows General Conversations: Severe Language Eval: Verbal Language Completes Spontaneous Greeting: Mild Produces Auto, Serial Info: Moderate Imitates Simple Words/Phrases: Moderate Word Finding: Moderate Requests Basic Needs: Moderate States Basic Personal Info: Severe Expresses Complex Ideas: Severe Objective Cognitive Domain Attention: Moderate Memory: Moderate Problem Solving: Severe Executive Functions: Moderate Composite Severity Rating: Moderate Objective Formal/Standardized Tests [facility] Status ([facility]) Results 5/30, Moderate Dementia range of function Oral Motor/Speech Production Within normal limits, answers with short phrases, y/n Impression Patient is a 70 y/o man who was admitted to the ARU s/p [facility]. Patient is noted to be impulsive and very fidgety. He speaks with short phrases or y/n answers to questions. Patient required frequent redirection during the evaluation session. He tried numerous times to get up from the recliner. Chair alarm in place. The patient was given the UMS with a score of 5/30 obtained. The patient is noted to have dementia which is also indicated by his assessment. Patient will receive skilled therapy with focus on safety awareness and orientation. Speech Patient Assess Expression of Ideas/Wants: Frequently (2) Understanding Verbal Content: Sometimes Understands(2) Brief Interview-Mental Status: Yes Repetition of Three Words: One (1) Temporal Orientation: Year: Missed by 1 year (2) Temporal Orientation: Month: No answer (0) Temporal Orientation: Day: Incorrect or No Answer(0) Recall : Wear to say "Sock": No, could not recall (0) Recall : Color: No, could not recall (0) Recall : Bed: No, could not recall (0) Memory/Recall Ability: None of the above were recalled Speech Short Term Goals Short Term Goals Short Term Goals 1) Patient will complete orientation tasks related to her daily needs at 60% or greater with minimal cues. 2) Patient will complete safety awareness tasks related to her daily needs at 60% or greater with minimal cues. Speech Formation Testing Operator Goals Snf Goals Patient will improve cognitive function for safety and orientation. Speech-Plan Patient/Family Goals Patient/Family Goals: Patient's family plans for him to return home, however due to his current level of function, his return home may not be the best situation. Treatment Plan Speech Therapy Treatment Plan: Continue Plan of Care Treatment Duration: Feb 06, 2021 Frequency: 4 times per week (Patient will receive skilled ST 4-5x per week) Estimated Hrs Per Day: .5 hour per day Rehab Potential: Fair Barriers to Learning: Patient's moderate dementia, decreased safety awareness and orientation Pt/Family Agrees to Plan: Yes Safety Risks/Education Teaching Recipient: Patient Teaching Methods: Discussion Response to Teaching: Verbalize Understanding, Reinforcement Needed Education Topics Provided: Safety in his room, sitter in place Time Speech Therapy Time In: 11:00 Speech Therapy Time Out: 11:30 Total Billed Time: 30 Billed Treatment Time 1, KIERA REY B[place] ST Jan 23, 2021 11:07
[2021-01-23] MEDS: BETHANECHOL 25 MG (URECHOLINE) TAB PO SCH ×3 (11:33→23:39)
[2021-01-23 11:50] VITALS: BP 136/55
--- NOTE | 2021-01-23 13:35 | CONSULTATION REPORT ---
DATE OF SERVICE: 01/23/2021 ATTENDING PHYSICIAN: Dr. Yates. SUMMARY: The patient is not the greatest historian. Most of the history obtained from Dr. Yates and the nurse. This is a 70-year-old white man transferred from [facility], they have not been able to get him off the catheter with trial of voiding failing. The patient does admit to vague symptoms of prostatism at home. He is on Urecholine 10 mg only started yesterday. He tolerated it well with no problem. He is not on any Flomax. He did pull his catheter out, but the balloon apparently was deflated, so did not cause major problem. He has been on intermittent catheterization with residual varying between 4 to 500 mL. IMPRESSION: Urinary retention, benign prostatic hyperplasia, possible neurogenic. PLAN: 1. Start Flomax 0.4 mg daily. 2. Increase Urecholine to 25 q.i.d. before meals and at bedtime. 3. Monitor with bladder scan that has been doing and straight cath p.r.n. Later on, if needed, we will perform a bedside flexible cystoscopy. Job ID: [id number] DocumentID: [id number] Dictated Date: 01/23/2021 10:19:58 Shipper And Receiving Date: 01/23/2021 13:35:23 Dictated By: DAMEON LARA MD
--- NOTE | 2021-01-23 14:50 | Therapy Group Daily Note ---
Therapy Daily Group Note Patient Education Topic Other List Below (memory, ARU expections/description) Exercises LE Seated Exercise, UE Exercise Session Ratio (pt:therapist): 8:2 Goal of Session: Education on ARU Expectations, Memory Strategies, UE/LE Strengthing Goal Met for this Session: Yes Pt Benefit of Group: Contributions to Others, F/U Use of Strategies @Home, Increased Functional Safety, Increased Functional Strength, Improved Cognition, Recognition of Peers, Socialization Other/Notes Pt ambulated using [facility]PT group. Group consisted of introductions (name, place living, memory of historical event), socialization, ARU description/expectation, seated B UE/LE exercises and memory strategies/activity. Pt introduced self appropriately and actively listened to peers. Pt participated in B UE/LE seated exercises and tolerated well. Pt acknowledged understanding of educational topics by giving own personal strategies and experiences. After therapy, pt lying in bed with call light/phone in reach. Start Time: 13:00 Stop Time: 14:00 Total Billed Treatment Time: 60 Total Billed Treatment 1-MELE CRUZ Jan 23, 2021 14:50
[2021-01-23] MEDS: ALPRAZolam 0.25 MG (XANAX) TAB PO PRN ×2 (15:18→23:37)
[2021-01-23] MEDS: LORazepam INJ 2 MG/ML (ATIVAN) VIAL IM PRN (16:57)
[2021-01-23] MEDS: TAMSULOSIN 0.4 MG (FLOMAX) CAP PO SCH (17:18)
[2021-01-23] MEDS ORDERED: TAMSULOSIN 0.4 MG (FLOMAX) CAP PO SCH (18:00)
[2021-01-23 20:00] VITALS: BP 146/75
[2021-01-23] MEDS: OLANZapine 5 MG (ZyPREXA) TAB PO SCH (23:37)
[2021-01-24] MEDS: BETHANECHOL 25 MG (URECHOLINE) TAB PO SCH ×4 (06:11→21:35)
--- NOTE | 2021-01-24 07:39 | PM&R Progress Note ---
Subjective HPI/CC On Admission Date Seen by Provider: Jan 24, 2021 Time Seen by Provider: 07:00 Subjective/Events-last exam 01/24/2021: Pt very confused Had an in-and-out catheter at 6:00 this morning Voiding 300 at a time Zyprexa at night 01/23/21: Pt doing very well medically but he is very difficult to redirect Hgb 10 One on one sitter now Ativan and Xanax given last night Zyprexa helped im sleep until 3:00 In and out caths ordered by urology consults Review of Systems General: Fatigue, Malaise Pulmonary: Dyspnea Objective Exam Vital Signs Vital Signs Date Time Temp Pulse Resp B/P (MAP) Pulse Ox O2 Delivery O2 Flow Rate FiO2 01/24/21 20:15 36.2 92 16 133/62 (85) 98 Room Air Capillary Refill : General Appearance: No Apparent Distress, WD/WN, Chronically ill, Thin HEENT: PERRL/EOMI, Normal ENT Inspection, Pharynx Normal Neck: Full Range of Motion, Normal Inspection, Non Tender, Supple, Carotid Bruit Respiratory: Chest Non Tender, Lungs Clear, Normal Breath Sounds, No Accessory Muscle Use, No Respiratory Distress Cardiovascular: Regular Rate, Rhythm, No Edema, No Gallop, No JVD, No Murmur, Normal Peripheral Pulses Gastrointestinal: Normal Bowel Sounds, No Organomegaly, No Pulsatile Mass, Non Tender, Soft Back: Normal Inspection, No CVA Tenderness, No Vertebral Tenderness Extremity: Normal Capillary Refill, Normal Inspection, Normal Range of Motion, Non Tender, No Calf Tenderness, No Pedal Edema Neurologic/Psychiatric: Alert, No Motor/Sensory Deficits, Normal Mood/Affect, Abnormal Gait, Disoriented, Motor Weakness (Generalized weakness) Skin: Normal Color, Warm/Dry Lymphatic: No Adenopathy Results/Procedures Lab Patient resulted labs reviewed. FIM Transfers Therapy Code Descriptions/Definitions Functional [place] Measure: 0=Not Assessed/NA 4=Minimal Assistance 1=Total Assistance 5=Supervision or Setup 2=Maximal Assistance 6=Modified [place] 3=Moderate Assistance 7=Complete IndependenceSCALE: Activities may be completed with or without assistive devices. 2-Xmlsxkafxz-dmqpbza completes the activity by him/herself with no assistance from a helper. 5-Set-up or Clean-up Assistance-helper sets up or cleans up; patient completes activity. [place] assists only prior to or following the activity. 4-Supervision or Touching Assistance-helper provides verbal cues and/or touching/steadying and/or contact guard assistance as patient completes activity. Assistance may be provided throughout the activity or intermittently. 3-Partial/Moderate Assistance-helper does LESS THAN HALF the effort. [place] lifts, holds or supports trunk or limbs, but provides less than half the effort. 2-Substantial/Maximal Assistance-helper does MORE THAN HALF the effort. [place] lifts or holds trunk or limbs and provides more than half the effort. 6-Qrrcdlaqk-otsfvl does ALL the effort. Patient does none of the effort to complete the activity. Or, the assistance of 2 or more helpers is required for the patient to complete the activity. If activity was not attempted, code reason: 7-Patient Refused. 9-Not Applicable-not attempted and the patient did not perform the activity before the current illness, exacerbation or injury. 10-Not Attempted due to Environmental Limitations-(lack of equipment, weather restraints, etc.). 88-Not Attempted due to Medical Conditions or Safety Concerns. Roll Left to Right (QC): 6 Sit to Lying (QC): 6 Sit to Stand (QC): 4 Chair/Tqw-jd-Fxqwm Xfer(QC): 4 Car Transfer (QC): 4 Gait Training Does the Patient Walk?: Yes Distance: 2 x 150' Walk 10 feet (QC): 4 Walk 50 ft with 2 Turns(QC): 4 Walk 150 ft (QC): 3 Walking 10ft/uneven surface-QC: 4 Gait Assistive Device: FWW Wheelchair Training Does the Pt Use a Wheelchair?: No Wheel 50 ft with 2 turns (QC): 9 Wheel 150 ft (QC): 9 Stair Training #of Steps: 1 1 Step (curb) (QC): 4 4 Steps (QC): 88 12 Steps (QC): 88 Balance Picking up an Object (QC): 4 ADL-Treatment Eating (QC): 6 (IND with breakfast.) Oral Hygiene (QC): 3 (Min A standing at sink, assist with standing balance, and moderate verbal/tactile cues for sequencing) Shower/Bathe Self (QC): 3 (Min A standing balance, pt able to wash/dry all parts, moderate verbal cues for sequencing and safety. ) Upper Body Dressing (QC): 4 (SBA) Lower Body Dressing (QC): 3 (Min A standing balance, pt able to don/doff pants and brief.) On/Off Footwear (QC): 4 (SBA, pt able to doff/don gripper socks.) Toileting Hygiene (QC): 3 (min A standing balance, pt stood at toilet to urinate, able to manage clothing) Assessment/Plan Assessment and Plan Assess & Plan/Chief Complaint Assessment: Hemorrhagic stroke Encephalopathy Urinary retention Pulled Sahu catheter out bulb intact upon arrival on 01/22/2021 Hypertension Hyperlipidemia Plan: Aggressive rehabilitation Urology consult Antipsychotics for encephalopathy 01/23/21: Monitor confusion Zyprexa and anti-psychotics 01/24/2021: Supportive care Confusion management (1) Hemorrhagic stroke RIGOBERTO HODGES DO Jan 24, 2021 07:39
[2021-01-24 08:20] VITALS: BP 136/62
--- NOTE | 2021-01-24 08:45 | Physical Therapy Daily Note ---
PT Daily Note-Current Subjective Pt sleeping upon arrival. Pt awakened and agreeable to PT at this time. Pt denies pain. Pt participates minimally in conversation offering 1-3 word answers. Mental Status Patient Orientation: Person, Confused Transfers SCALE: Activities may be completed with or without assistive devices. 0-Rtqldicbnj-rnwablw completes the activity by him/herself with no assistance from a helper. 5-Set-up or Clean-up Assistance-helper sets up or cleans up; patient completes activity. [place] assists only prior to or following the activity. 4-Supervision or Touching Assistance-helper provides verbal cues and/or touching/steadying and/or contact guard assistance as patient completes activity. Assistance may be provided throughout the activity or intermittently. 3-Partial/Moderate Assistance-helper does LESS THAN HALF the effort. [place] lifts, holds or supports trunk or limbs, but provides less than half the effort. 2-Substantial/Maximal Assistance-helper does MORE THAN HALF the effort. [place] lifts or holds trunk or limbs and provides more than half the effort. 0-Yvfqbstcu-mxenpo does ALL the effort. Patient does none of the effort to complete the activity. Or, the assistance of 2 or more helpers is required for the patient to complete the activity. If activity was not attempted, code reason: 7-Patient Refused. 9-Not Applicable-not attempted and the patient did not perform the activity before the current illness, exacerbation or injury. 10-Not Attempted due to Environmental Limitations-(lack of equipment, weather restraints, etc.). 88-Not Attempted due to Medical Conditions or Safety Concerns. Max vc's for hand placement and sequencing. Pt requires min A bed mobility and sit <->standing. Pt toileted with vc's and min A for transfers. When standing at sink for ADL's pt knees flexed and leaning forward onto vanity. Pt required vc's for posture and safe standing as pt posture wanes with distraction and fatigue. Gait Training Gait Assistive Device: FWW Pt amb with FWW and Min A for guidance of FWW 2 x 50ft, 2 x 60ft, 1 x 15ft. Pt required frequent vc's for increased stride due to festination and maintaining close proximity to walker. Pt tends to freeze or festinate as he fatigues. Exercises Seated Therapy Exercises: Ankle pumps, Long arc quads, Hip flexion, Hip abd/add Seated Reps: 20 Treatments Co-treat with OT as the skilled care of 2 clinicians required which a homemaking rehabilitation consultant could not perform in order to coordinate UE/LEs, decrease fall risk, and due to pt's limitations in strength, activity tolerance, cognition, sequencing, safety awareness, and transfers/mobility. OT focused on UE placement, cues for sequencing and safety, and ADLs, PT focused on LE placement, transfers/mobility, gross overall movements, and standing balance. Assessment Current Status: Fair Progress Pt neeraj well with rest breaks. Pt requires max vc's for sequencing. Pt tends to freeze or festinate as he fatigues during ambulation. Pt impulsive and tends to lean and or reach for things other than walker. Pt requires min A at all times due to impulsiveness and poor awareness of body position. Pt in recliner with call light and all needs met, in care of OT and live sitter present. PT Short Term Goals Short Term Goals Time Frame: Jan 29, 2021 Roll Left & Right: 6 Sit to lyin Lying to sitting on side of be: 6 Sit to stand: 4 (SBA) Chair/ldz-xy-ydrga transfer: 4 (SBA) Walk 10 feet: 4 (SA) Walk 50 feet with two turns: 4 (SBA) PT Machine Bander And Cellophaner Helper Goals Machine Bander And Cellophaner Helper Goals PT Machine Bander And Cellophaner Helper Goals Time Frame: Feb 12, 2021 Roll Left & Right (QC): 6 Sit to Lying (QC): 6 Lying-Sitting on Side/Bed(QC): 6 Sit to Stand (QC): 5 Chair/Lpm-qr-Onerf Xfer(QC): 5 Toilet Transfer (QC): 5 Car Transfer (QC): 5 Does the Patient Walk: Yes Walk 10 feet (QC): 5 Walk 50ft with 2 Turns (QC): 5 Walk 150 ft (QC): 5 Walking 10ft on Uneven Surface: 5 1 Step (curb) (QC): 4 4 Steps (QC): 4 12 Steps (QC): 88 Picking up an Object (QC): 4 Wheel 50 feet with 2 turns (QC: 9 Wheel 150 feet: 9 PT Plan Treatment/Plan Treatment Plan: Continue Plan of Care Treatment Plan: Bed Mobility, Education, Functional Activity [place], Functional Strength, Group Therapy, Gait, Safety, Therapeutic Exercise, Transfers Treatment Duration: Feb 12, 2021 Frequency: At least 5 of 7 days/Wk (IRF) Estimated Hrs Per Day: 1.5 hours per day Patient and/or Family Agrees t: Yes Time/GCodes Time In: 730 Time Out: 900 Total Billed Treatment Time: 90 Total Billed Treatment 1, Gait 40', FA x 50' (Pt seen for 90' total and Co-treat with OT x 60') DILIP HOLLOWAY CPTA Jan 24, 2021 08:45
[2021-01-24] MEDS: CLOPIDOGREL 75 MG (PLAVIX) TABLET PO SCH (09:01)
[2021-01-24] MEDS: LORATADINE (CLARITIN) 10 MG TAB PO SCH (09:01)
[2021-01-24] MEDS: doxAzosin 4 MG (CARDURA) TAB PO SCH (09:01)
[2021-01-24] MEDS: LOSARTAN 50 MG (COZAAR) TAB PO SCH ×2 (09:01→21:36)
[2021-01-24] MEDS: DOCUSATE SODIUM 100 MG (COLACE) CAP PO SCH ×2 (09:01→21:38)
[2021-01-24] MEDS: ISOSORBIDE MONONITRATE 30 MG (IMDUR) TAB PO SCH (09:01)
[2021-01-24] MEDS: FAMOTIDINE 20 MG (PEPCID) TABLET PO SCH (09:01)
[2021-01-24] MEDS: SENNA W/DOCUSATE (SENOKOT S) TABLET PO SCH ×2 (09:01→21:35)
[2021-01-24] MEDS: polyethylene glycoL POWDER 17 GM (MIRALAX) PACK PO SCH ×2 (09:02→21:35)
[2021-01-24] MEDS: amLODIPine 5 MG (NORVASC) TAB PO SCH (09:02)
--- NOTE | 2021-01-24 09:02 | Occupational Ther Daily Note ---
OT Current Status-Daily Note Subjective Pt has one on one sitter. Agreeable to OT/PT cotreat, then OT Tx. Pt spoke minimally throughout session, replying with 1-3 words Mental Status/Objective Patient Orientation: Person ADL-Treatment Therapy Code Descriptions/Definitions Functional [place] Measure: 0=Not Assessed/NA 4=Minimal Assistance 1=Total Assistance 5=Supervision or Setup 2=Maximal Assistance 6=Modified [place] 3=Moderate Assistance 7=Complete IndependenceSCALE: Activities may be completed with or without assistive devices. 3-Hgfvadakiv-jhjxaxf completes the activity by him/herself with no assistance from a helper. 5-Set-up or Clean-up Assistance-helper sets up or cleans up; patient completes activity. [place] assists only prior to or following the activity. 4-Supervision or Touching Assistance-helper provides verbal cues and/or touching/steadying and/or contact guard assistance as patient completes activity. Assistance may be provided throughout the activity or intermittently. 3-Partial/Moderate Assistance-helper does LESS THAN HALF the effort. [place] lif ts, holds or supports trunk or limbs, but provides less than half the effort. 2-Substantial/Maximal Assistance-helper does MORE THAN HALF the effort. [place] lifts or holds trunk or limbs and provides more than half the effort. 9-Mmwnbzuze-wlyjhl does ALL the effort. Patient does none of the effort to complete the activity. Or, the assistance of 2 or more helpers is required for the patient to complete the activity. If activity was not attempted, code reason: 7-Patient Refused. 9-Not Applicable-not attempted and the patient did not perform the activity before the current illness, exacerbation or injury. 10-Not Attempted due to Environmental Limitations-(lack of equipment, weather restraints, etc.). 88-Not Attempted due to Medical Conditions or Safety Concerns. Eating (QC): 3 (Min A, pt spilled food over self requiring assist to clean, required min verbal and tactile cues for sequencing.) Oral Hygiene (QC): 3 (Assist standing balance at sink, pt able to complete task with moderate verbal cues.) Toileting Hygiene (QC): 3 (Min A, OT assisted with hygiene, pt able to manage pants up/down with verbal and tactile cues.) Other Treatment [id number] OT/PT cotreat due to skill of 2 clinicians required which a rehabilitation counselor could not perform in order to coordinate UE/LEs, decrease fall risk, and due to pt's limitations in strength, activity tolerance, cognition, sequencing, safety awareness, and transfers/mobility. OT focused on UE placement, cues for sequencing and safety, and ADLs, PT focused on LE placement, transfers/mobility, gross overall movements, and standing balance. Pt seated in w/c in halls, performed functional mobility back to room and into bathroom, [address]. Pt transferred to toilet, completed toileting, then stood at sink to wash hands and brush teeth. Pt transferred to recliner. Pt ate breakfast, spilling milk over himself and floor at one point, assist to clean. Pt able to eat overall with min A, and min verbal and tactile cues. Pt drank yogurt instead of using spoon, at one point poured his milk into yogurt cup. OT stirred milk in, and placed straw. Pt then lifted yogurt container and tipped it upside down, spilling yogurt over tray table, assist to clean up. Pt changed hospital gown with min A. [id number] OT tx. pt sat at recliner, completing pegboard task in order to increa se fine motor strength and coordination, increase activity tolerance, and to improve sequencing with tasks. Pt instructed to place 1" pegs into foam pegboard. Pt required min verbal/tactile cues for sequencing, placing x50 pegs total. Pt took medicine provided by nurse, min verbal cues. Post tx, pt seated in recliner, call light in reach and all needs met, live sitter present. Min A sit <-> stand, min A with functional mobility. Pt required max cues with functional mobility for sequencing and UE placement, cues to take larger steps as he tended to shuffle his feet, and cues to keep walker close. Pt required cues throughout session for safety awareness, as he is impulsive. Education OT Patient Education: Correct positioning, Energy conservation, Exercise program, Modified ADL techniques, Progress toward Goal/Update tx plan, Purpose of tx/functional activities, Rehab process Teaching Recipient: Patient Teaching Methods: Discussion Response to Teaching: Verbalize Understanding OT Short Term Goals Short Term Goals Time Frame: Feb 02, 2021 Oral hygiene: 5 Toileting hygiene: 4 Shower/bathe self: 4 Upper body dressin Lower body dressin OT Assisted Goals Assisted Goals Time Frame: Feb 20, 2021 Eating (QC): 6 Oral Hygiene (QC): 6 Toileting Hygiene (QC): 6 Shower/Bathe Self (QC): 6 Upper Body Dressing (QC): 6 Lower Body Dressing (QC): 6 On/Off Footwear (QC): 6 Additional Goals: 1-Demonstrate ADL Tasks, 2-Verbalize Understanding, 3- ImproveStrength/[place] 1=Demonstrate adherence to instructed precautions during ADL tasks. 2=Patient will verbalize/demonstrate understanding of assistive devices/modifications for ADL. 3=Patient will improve strength/tolerance for activity to enable patient to perform ADL's. OT Education/Plan Problem List/Assessment Assessment: Decreased Activ Tolerance, Decreased Safety Aware, Decreased UE Strength, Impaired Cognition, Impaired Coordination, Impaired Funct Balance, Impaired I ADL's, Impaired Self-Care Skills Discharge Recommendations Plan/Recommendations: Continue POC Treatment Plan/Plan of Care Patient would benefit from OT for education, treatment and training to promote independence in ADL's, mobility, safety and/or upper extremity function for ADL's. Plan of Care: ADL Retraining, Functional Mobility, Group Exercise/Act as Ind, UE Funct Exercise/Act Treatment Duration: Feb 20, 2021 Frequency: At least 5 of 7 days/Wk (IRF) Estimated Hrs Per Day: 1.5 hours per day Rehab Potential: Fair Time/GCodes Start Time: 08:00 Stop Time: 09:30 Total Time Billed (hr/min): 90 Billed Treatment Time [id number] cotreat, [id number] OT tx 1, FA 3 (45'), ADL 3 (45') ELISEO TEJADA OT Jan 24, 2021 09:02
[2021-01-24] MEDS: TAMSULOSIN 0.4 MG (FLOMAX) CAP PO SCH (18:53)
[2021-01-24 20:15] VITALS: BP 133/62
[2021-01-24] MEDS: OLANZapine 5 MG (ZyPREXA) TAB PO SCH (21:35)
[2021-01-24] MEDS: MELATONIN 3 MG TABLET PO PRN (21:35)
[2021-01-25] MEDS: BETHANECHOL 25 MG (URECHOLINE) TAB PO SCH ×4 (06:14→21:35)
--- NOTE | 2021-01-25 06:59 | PM&R Progress Note ---
Subjective HPI/CC On Admission Date Seen by Provider: Jan 25, 2021 Time Seen by Provider: 13:00 Subjective/Events-last exam 01/25/2021: Patient improved overall Sleeping better Had urinary retention requiring in and out caths Confused but redirectable 01/24/2021: Pt very confused Had an in-and-out catheter at 6:00 this morning Voiding 300 at a time Zyprexa at night 01/23/21: Pt doing very well medically but he is very difficult to redirect Hgb 10 One on one sitter now Ativan and Xanax given last night Zyprexa helped im sleep until 3:00 In and out caths ordered by urology consults Review of Systems General: Fatigue Neurological: Confusion Objective Exam Vital Signs Vital Signs Date Time Temp Pulse Resp B/P (MAP) Pulse Ox O2 Delivery O2 Flow Rate FiO2 01/25/21 20:10 99 Room Air 01/25/21 20:10 36.2 92 20 142/76 (98) Capillary Refill : General Appearance: No Apparent Distress, WD/WN, Chronically ill, Thin HEENT: PERRL/EOMI, Normal ENT Inspection, Pharynx Normal Neck: Full Range of Motion, Normal Inspection, Non Tender, Supple, Carotid Bruit Respiratory: Chest Non Tender, Lungs Clear, Normal Breath Sounds, No Accessory Muscle Use, No Respiratory Distress Cardiovascular: Regular Rate, Rhythm, No Edema, No Gallop, No JVD, No Murmur, Normal Peripheral Pulses Gastrointestinal: Normal Bowel Sounds, No Organomegaly, No Pulsatile Mass, Non Tender, Soft Back: Normal Inspection, No CVA Tenderness, No Vertebral Tenderness Extremity: Normal Capillary Refill, Normal Inspection, Normal Range of Motion, Non Tender, No Calf Tenderness, No Pedal Edema Neurologic/Psychiatric: Alert, No Motor/Sensory Deficits, Normal Mood/Affect, Abnormal Gait, Disoriented, Motor Weakness (Generalized weakness) Skin: Normal Color, Warm/Dry Lymphatic: No Adenopathy Results/Procedures Lab Patient resulted labs reviewed. FIM Transfers Therapy Code Descriptions/Definitions Functional [place] Measure: 0=Not Assessed/NA 4=Minimal Assistance 1=Total Assistance 5=Supervision or Setup 2=Maximal Assistance 6=Modified [place] 3=Moderate Assistance 7=Complete IndependenceSCALE: Activities may be completed with or without assistive devices. 4-Oqlbjknrla-melpima completes the activity by him/herself with no assistance from a helper. 5-Set-up or Clean-up Assistance-helper sets up or cleans up; patient completes activity. [place] assists only prior to or following the activity. 4-Supervision or Touching Assistance-helper provides verbal cues and/or touching/steadying and/or contact guard assistance as patient completes activity. Assistance may be provided throughout the activity or intermittently. 3-Partial/Moderate Assistance-helper does LESS THAN HALF the effort. [place] lifts, holds or supports trunk or limbs, but provides less than half the effort. 2-Substantial/Maximal Assistance-helper does MORE THAN HALF the effort. [place] lifts or holds trunk or limbs and provides more than half the effort. 3-Zhkxykeeh-juhhmz does ALL the effort. Patient does none of the effort to complete the activity. Or, the assistance of 2 or more helpers is required for the patient to complete the activity. If activity was not attempted, code reason: 7-Patient Refused. 9-Not Applicable-not attempted and the patient did not perform the activity before the current illness, exacerbation or injury. 10-Not Attempted due to Environmental Limitations-(lack of equipment, weather restraints, etc.). 88-Not Attempted due to Medical Conditions or Safety Concerns. Roll Left to Right (QC): 6 Sit to Lying (QC): 6 Sit to Stand (QC): 4 Chair/Cfq-wc-Hdtau Xfer(QC): 4 Car Transfer (QC): 4 Gait Training Does the Patient Walk?: Yes Distance: 2 x 150' Walk 10 feet (QC): 4 Walk 50 ft with 2 Turns(QC): 4 Walk 150 ft (QC): 3 Walking 10ft/uneven surface-QC: 4 Gait Assistive Device: FWW Wheelchair Training Does the Pt Use a Wheelchair?: No Wheel 50 ft with 2 turns (QC): 9 Wheel 150 ft (QC): 9 Stair Training #of Steps: 1 1 Step (curb) (QC): 4 4 Steps (QC): 88 12 Steps (QC): 88 Balance Picking up an Object (QC): 4 ADL-Treatment Eating (QC): 3 (Min A, pt spilled food over self requiring assist to clean, required min verbal and tactile cues for sequencing.) Oral Hygiene (QC): 3 (Assist standing balance at sink, pt able to complete task with moderate verbal cues.) Shower/Bathe Self (QC): 3 (Min A standing balance, pt able to wash/dry all parts, moderate verbal cues for sequencing and safety. ) Upper Body Dressing (QC): 4 (SBA) Lower Body Dressing (QC): 3 (Min A standing balance, pt able to don/doff pants and brief.) On/Off Footwear (QC): 4 (SBA, pt able to doff/don gripper socks.) Toileting Hygiene (QC): 3 (Min A, OT assisted with hygiene, pt able to manage pants up/down with verbal and tactile cues.) Assessment/Plan Assessment and Plan Assess & Plan/Chief Complaint Assessment: Hemorrhagic stroke Encephalopathy Urinary retention Pulled Sahu catheter out bulb intact upon arrival on 01/22/2021 Hypertension Hyperlipidemia Plan: Aggressive rehabilitation Urology consult Antipsychotics for encephalopathy 01/23/21: Monitor confusion Zyprexa and anti-psychotics 01/24/2021: Supportive care Confusion management 01/25/2021: Urinary retention management Urology appreciated Confusion is improved (1) Hemorrhagic stroke RIGOBERTO HODGES DO Jan 25, 2021 06:59
[2021-01-25 08:00] VITALS: BP 113/70
[2021-01-25] MEDS: FAMOTIDINE 20 MG (PEPCID) TABLET PO SCH (09:06)
[2021-01-25] MEDS: DOCUSATE SODIUM 100 MG (COLACE) CAP PO SCH ×2 (09:06→21:35)
[2021-01-25] MEDS: LOSARTAN 50 MG (COZAAR) TAB PO SCH ×2 (09:06→21:36)
[2021-01-25] MEDS: doxAzosin 4 MG (CARDURA) TAB PO SCH (09:06)
[2021-01-25] MEDS: CLOPIDOGREL 75 MG (PLAVIX) TABLET PO SCH (09:07)
[2021-01-25] MEDS: ISOSORBIDE MONONITRATE 30 MG (IMDUR) TAB PO SCH (09:07)
[2021-01-25] MEDS: amLODIPine 5 MG (NORVASC) TAB PO SCH (09:07)
[2021-01-25] MEDS: polyethylene glycoL POWDER 17 GM (MIRALAX) PACK PO SCH ×2 (09:07→21:35)
[2021-01-25] MEDS: SENNA W/DOCUSATE (SENOKOT S) TABLET PO SCH ×2 (09:07→21:35)
[2021-01-25] MEDS: LORATADINE (CLARITIN) 10 MG TAB PO SCH (09:07)
[2021-01-25] MEDS: TAMSULOSIN 0.4 MG (FLOMAX) CAP PO SCH (17:02)
[2021-01-25] MEDS: ALPRAZolam 0.25 MG (XANAX) TAB PO PRN (19:02)
[2021-01-25 20:10] VITALS: BP 142/76
[2021-01-25] MEDS: OLANZapine 5 MG (ZyPREXA) TAB PO SCH (21:35)
[2021-01-25] MEDS: MELATONIN 3 MG TABLET PO PRN (21:35)
[2021-01-26] MEDS: ALPRAZolam 0.25 MG (XANAX) TAB PO PRN ×3 (03:10→20:32)
[2021-01-26] MEDS: BETHANECHOL 25 MG (URECHOLINE) TAB PO SCH ×4 (05:21→20:32)
--- NOTE | 2021-01-26 06:23 | PM&R Progress Note ---
Subjective HPI/CC On Admission Date Seen by Provider: Jan 26, 2021 Time Seen by Provider: 11:00 Subjective/Events-last exam 01/26/2021: Pt doing pretty well Bowels moved Confusion is noted Difficulty redirecting Dr. Busby will initiate a cystocope soon 01/25/2021: Patient improved overall Sleeping better Had urinary retention requiring in and out caths Confused but redirectable 01/24/2021: Pt very confused Had an in-and-out catheter at 6:00 this morning Voiding 300 at a time Zyprexa at night 01/23/21: Pt doing very well medically but he is very difficult to redirect Hgb 10 One on one sitter now Ativan and Xanax given last night Zyprexa helped im sleep until 3:00 In and out caths ordered by urology consults Review of Systems General: Fatigue, Malaise Neurological: Weakness, Incoordination, Confusion Objective Exam Vital Signs Vital Signs Date Time Temp Pulse Resp B/P (MAP) Pulse Ox O2 Delivery O2 Flow Rate FiO2 01/26/21 20:38 97 Room Air 01/26/21 20:00 36.7 82 16 135/76 (95) Capillary Refill : General Appearance: No Apparent Distress, WD/WN, Chronically ill, Thin HEENT: PERRL/EOMI, Normal ENT Inspection, Pharynx Normal Neck: Full Range of Motion, Normal Inspection, Non Tender, Supple, Carotid Bruit Respiratory: Chest Non Tender, Lungs Clear, Normal Breath Sounds, No Accessory Muscle Use, No Respiratory Distress Cardiovascular: Regular Rate, Rhythm, No Edema, No Gallop, No JVD, No Murmur, Normal Peripheral Pulses Gastrointestinal: Normal Bowel Sounds, No Organomegaly, No Pulsatile Mass, Non Tender, Soft Back: Normal Inspection, No CVA Tenderness, No Vertebral Tenderness Extremity: Normal Capillary Refill, Normal Inspection, Normal Range of Motion, Non Tender, No Calf Tenderness, No Pedal Edema Neurologic/Psychiatric: Alert, No Motor/Sensory Deficits, Normal Mood/Affect, Abnormal Gait, Disoriented, Motor Weakness (Generalized weakness) Skin: Normal Color, Warm/Dry Lymphatic: No Adenopathy Results/Procedures Lab Laboratory Tests 01/26/21 06:25 Patient resulted labs reviewed. FIM Transfers Therapy Code Descriptions/Definitions Functional [place] Measure: 0=Not Assessed/NA 4=Minimal Assistance 1=Total Assistance 5=Supervision or Setup 2=Maximal Assistance 6=Modified [place] 3=Moderate Assistance 7=Complete IndependenceSCALE: Activities may be completed with or without assistive devices. 0-Fjenloofde-zmofbcz completes the activity by him/herself with no assistance from a helper. 5-Set-up or Clean-up Assistance-helper sets up or cleans up; patient completes activity. [place] assists only prior to or following the activity. 4-Supervision or Touching Assistance-helper provides verbal cues and/or touching/steadying and/or contact guard assistance as patient completes activity. Assistance may be provided throughout the activity or intermittently. 3-Partial/Moderate Assistance-helper does LESS THAN HALF the effort. [place] lifts, holds or supports trunk or limbs, but provides less than half the effort. 2-Substantial/Maximal Assistance-helper does MORE THAN HALF the effort. [place] lifts or holds trunk or limbs and provides more than half the effort. 4-Pzydwoowm-koxbte does ALL the effort. Patient does none of the effort to complete the activity. Or, the assistance of 2 or more helpers is required for the patient to complete the activity. If activity was not attempted, code reason: 7-Patient Refused. 9-Not Applicable-not attempted and the patient did not perform the activity before the current illness, exacerbation or injury. 10-Not Attempted due to Environmental Limitations-(lack of equipment, weather restraints, etc.). 88-Not Attempted due to Medical Conditions or Safety Concerns. Roll Left to Right (QC): 6 Sit to Lying (QC): 6 Sit to Stand (QC): 4 Chair/Uwl-qe-Obugx Xfer(QC): 4 Car Transfer (QC): 4 Gait Training Does the Patient Walk?: Yes Distance: 2 x 150' Walk 10 feet (QC): 4 Walk 50 ft with 2 Turns(QC): 4 Walk 150 ft (QC): 3 Walking 10ft/uneven surface-QC: 4 Gait Assistive Device: FWW Wheelchair Training Does the Pt Use a Wheelchair?: No Wheel 50 ft with 2 turns (QC): 9 Wheel 150 ft (QC): 9 Stair Training #of Steps: 1 1 Step (curb) (QC): 4 4 Steps (QC): 88 12 Steps (QC): 88 Balance Picking up an Object (QC): 4 ADL-Treatment Eating (QC): 3 (Min A, pt spilled food over self requiring assist to clean, required min verbal and tactile cues for sequencing.) Oral Hygiene (QC): 3 (Assist standing balance at sink, pt able to complete task with moderate verbal cues.) Shower/Bathe Self (QC): 3 (Min A standing balance, pt able to wash/dry all parts, moderate verbal cues for sequencing and safety. ) Upper Body Dressing (QC): 4 (SBA) Lower Body Dressing (QC): 3 (Min A standing balance, pt able to don/doff pants and brief.) On/Off Footwear (QC): 4 (SBA, pt able to doff/don gripper socks.) Toileting Hygiene (QC): 3 (Min A, OT assisted with hygiene, pt able to manage pants up/down with verbal and tactile cues.) Assessment/Plan Assessment and Plan Assess & Plan/Chief Complaint Assessment: Hemorrhagic stroke Encephalopathy Urinary retention Pulled Sahu catheter out bulb intact upon arrival on 01/22/2021 Hypertension Hyperlipidemia Plan: Aggressive rehabilitation Urology consult Antipsychotics for encephalopathy 01/23/21: Monitor confusion Zyprexa and anti-psychotics 01/24/2021: Supportive care Confusion management 01/25/2021: Urinary retention management Urology appreciated Confusion is improved 01/26/2021: Supportive care Sitter required Fall risk (1) Hemorrhagic stroke RIGOBERTO HODGES DO Jan 26, 2021 06:23
[2021-01-26 07:07] LABS: BASOPHILS # (AUTO) 0.1 10^3/uL (0.0-0.1); BASOPHILS % (AUTO) 1 % (0-10); EOSINOPHILS # (AUTO) 0.3 10^3/uL (0.0-0.3); EOSINOPHILS % (AUTO) 3 % (0-10); HEMATOCRIT 27 % (40-54); HEMOGLOBIN 9.4 g/dL (13.3-17.7); LYMPHOCYTES # (AUTO) 1.8 10^3/uL (1.0-4.0); LYMPHOCYTES % (AUTO) 21 % (12-44); MEAN CORPUSCULAR HEMOGLOBIN 31 pg (25-34); MEAN CORPUSCULAR HGB CONC 34 g/dL (32-36); MEAN CORPUSCULAR VOLUME 90 fL (80-99); MONOCYTES # (AUTO) 0.8 10^3/uL (0.0-1.0); MONOCYTES % (AUTO) 10 % (0-12); NEUTROPHILS # (AUTO) 5.4 10^3/uL (1.8-7.8); NEUTROPHILS % (AUTO) 64 % (42-75); PLATELET COUNT 311 10^3/uL (130-400); WHITE BLOOD COUNT 8.5 10^3/uL (4.3-11.0)
[2021-01-26 07:30] LABS: ALBUMIN 3.5 GM/DL (3.2-4.5); POTASSIUM 4.2 MMOL/L (3.6-5.0)
[2021-01-26 07:32] LABS: CALCIUM 9.2 MG/DL (8.5-10.1)
[2021-01-26 07:33] LABS: TOTAL PROTEIN 6.5 GM/DL (6.4-8.2)
[2021-01-26 07:35] LABS: BILIRUBIN,TOTAL 0.5 MG/DL (0.1-1.0)
[2021-01-26 07:36] LABS: CREATININE SERUM 1.1 MG/DL (0.60-1.30)
[2021-01-26 07:38] VITALS: BP 152/73
--- NOTE | 2021-01-26 08:20 | Occupational Ther Daily Note ---
OT Current Status-Daily Note Subjective Pt laying in bed, bed alarm on. Pt agreeable to OT tx, redirectable throughout session. Pt confused, stating he doesn't think there is a back porch when he went out the door to his room. Mental Status/Objective Patient Orientation: Person, Confused ADL-Treatment Therapy Code Descriptions/Definitions Functional [place] Measure: 0=Not Assessed/NA 4=Minimal Assistance 1=Total Assistance 5=Supervision or Setup 2=Maximal Assistance 6=Modified [place] 3=Moderate Assistance 7=Complete IndependenceSCALE: Activities may be completed with or without assistive devices. 1-Opjmiaxjaa-jzoryfm completes the activity by him/herself with no assistance from a helper. 5-Set-up or Clean-up Assistance-helper sets up or cleans up; patient completes activity. [place] assists only prior to or following the activity. 4-Supervision or Touching Assistance-helper provides verbal cues and/or touching/steadying and/or contact guard assistance as patient completes activity. Assistance may be provided throughout the activity or intermittently. 3-Partial/Moderate Assistance-helper does LESS THAN HALF the effort. [place] lifts, holds or supports trunk or limbs, but provides less than half the effort. 2-Substantial/Maximal Assistance-helper does MORE THAN HALF the effort. [place] lifts or holds trunk or limbs and provides more than half the effort. 5-Oqqsxvyxn-wxfiza does ALL the effort. Patient does none of the effort to complete the activity. Or, the assistance of 2 or more helpers is required for the patient to complete the activity. If activity was not attempted, code reason: 7-Patient Refused. 9-Not Applicable-not attempted and the patient did not perform the activity before the current illness, exacerbation or injury. 10-Not Attempted due to Environmental Limitations-(lack of equipment, weather restraints, etc.). 88-Not Attempted due to Medical Conditions or Safety Concerns. Toileting Hygiene (QC): 3 (Min A standing at toilet to urinate. Pt missed the bowl occassionally requiring cues.) Other Treatment Pt laying in bed, transferred supine to sit EOB, CGA. Pt declined showering today, stating he completed yesterday. Pt used FWW to perform functional mobility into bathroom, pt stood at toilet to urinate, missing the toilet on occasion requiring cues. Pt then stood at sink to wash his hands, assistance provided to locate soap. Pt then performed functional mobility to therapy gym, required cues for direction. OT attempted to cue pt to keep walker close by, but pt continued to use walker out in front of him. Pt required min-CGA to gym. In order to increase BUE Strength and activity tolerance, pt completed arm bike x15 mins, min resistance (20 Watt Resistance). Pt took rest breaks as needed, with min cues for continuation of task. Pt then removed beads from moderate r esistance theraputty in order to increase fine motor strength/coordination, and to improve cognition. t able to remove x15 beads from putty, with 1 verbal cue. Pt performed functional mobility back to his room, using FWW, CGA with cues for direction. Post tx, pt seated in recliner, call light in reach and all needs met, chair alarm activated, and nurse present. Education OT Patient Education: Correct positioning, Exercise program, Modified ADL techniques, Progress toward Goal/Update tx plan, Purpose of tx/functional activities, Rehab process Teaching Recipient: Patient Teaching Methods: Discussion Response to Teaching: Unable to Return Demonstration OT Short Term Goals Short Term Goals Time Frame: Feb 02, 2021 Oral hygiene: 5 Toileting hygiene: 4 Shower/bathe self: 4 Upper body dressin Lower body dressin OT Food Service Technician Goals [facility] Goals Time Frame: Feb 20, 2021 Eating (QC): 6 Oral Hygiene (QC): 6 Toileting Hygiene (QC): 6 Shower/Bathe Self (QC): 6 Upper Body Dressing (QC): 6 Lower Body Dressing (QC): 6 On/Off Footwear (QC): 6 Additional Goals: 1-Demonstrate ADL Tasks, 2-Verbalize Understanding, 3- ImproveStrength/Rizwan 1=Demonstrate adherence to instructed precautions during ADL tasks. 2=Patient will verbalize/demonstrate understanding of assistive devices/modifications for ADL. 3=Patient will improve strength/tolerance for activity to enable patient to perform ADL's. OT Education/Plan Problem List/Assessment Assessment: Decreased Activ Tolerance, Decreased UE Strength, Impaired Funct Balance, Impaired I ADL's Discharge Recommendations Plan/Recommendations: Continue POC Treatment Plan/Plan of Care Patient would benefit from OT for education, treatment and training to promote independence in ADL's, mobility, safety and/or upper extremity function for ADL's. Plan of Care: ADL Retraining, Functional Mobility, Group Exercise/Act as Ind, UE Funct Exercise/Act Treatment Duration: Feb 20, 2021 Frequency: At least 5 of 7 days/Wk (IRF) Estimated Hrs Per Day: 1.5 hours per day Rehab Potential: Fair Time/GCodes Start Time: 08:00 Stop Time: 09:00 Total Time Billed (hr/min): 60 Billed Treatment Time 1, ADL (10'), EX (15'), FA 2 (35) ELISEO TEJADA OT Jan 26, 2021 08:20
[2021-01-26] MEDS: doxAzosin 4 MG (CARDURA) TAB PO SCH (08:52)
[2021-01-26] MEDS: LORATADINE (CLARITIN) 10 MG TAB PO SCH (08:52)
[2021-01-26] MEDS: ISOSORBIDE MONONITRATE 30 MG (IMDUR) TAB PO SCH (08:52)
[2021-01-26] MEDS: CLOPIDOGREL 75 MG (PLAVIX) TABLET PO SCH (08:52)
[2021-01-26] MEDS: amLODIPine 5 MG (NORVASC) TAB PO SCH (08:52)
[2021-01-26] MEDS: FAMOTIDINE 20 MG (PEPCID) TABLET PO SCH (08:52)
[2021-01-26] MEDS: LOSARTAN 50 MG (COZAAR) TAB PO SCH ×2 (08:52→20:32)
[2021-01-26] MEDS: DOCUSATE SODIUM 100 MG (COLACE) CAP PO SCH ×2 (09:00→20:31)
[2021-01-26] MEDS: polyethylene glycoL POWDER 17 GM (MIRALAX) PACK PO SCH ×2 (09:00→20:38)
[2021-01-26] MEDS: SENNA W/DOCUSATE (SENOKOT S) TABLET PO SCH ×2 (09:00→20:38)
--- NOTE | 2021-01-26 09:52 | Speech Therapy Daily Note ---
Speech Daily Progress Note Subjective Date Seen by Provider: Jan 26, 2021 Time Seen by Provider: 00:30 Patient was sitting in his recliner, talking on the phone to his . Aide was present in his room as a sitter for safety. Patient constantly tries to get up and walk around. He insisted he wasn't in the room he stayed in last night. Objective Patient answered simple and y/n questions with 50% accuracy. Patient is very confused and unsafe to be alone. Assessment Assessment Current Status: Poor Progress Treatment Plan Continue Plan of Care Speech Short Term Goals Short Term Goals Short Term Goals 1) Patient will complete orientation tasks related to her daily needs at 60% or greater with minimal cues. 2) Patient will complete safety awareness tasks related to her daily needs at 60% or greater with minimal cues. Speech Fdc Goals Fdc Goals Patient will improve cognitive function for safety and orientation. Speech-Plan Patient/Family Goals Patient/Family Goals: Patient's discharge plans are unknown at this time. Patient will require 24/7 care for safety. Treatment Plan Speech Therapy Treatment Plan: Continue Plan of Care Treatment Duration: Feb 06, 2021 Frequency: 4 times per week (Patient will receive skilled ST 4-5x per week) Estimated Hrs Per Day: .5 hour per day Rehab Potential: Fair Barriers to Learning: Patient's moderate to severe dementia Pt/Family Agrees to Plan: Yes Safety Risks/Education Teaching Recipient: Patient Teaching Methods: Demonstration, Discussion Response to Teaching: Verbalize Understanding ( saf), Return Demonstration, Reinforcement Needed Education Topics Provided: use of call light, safety Time Speech Therapy Time In: 09:30 Speech Therapy Time Out: 10:00 Total Billed Time: 30 Billed Treatment Time 1KIERA BETHANIA ST Jan 26, 2021 09:52
--- NOTE | 2021-01-26 10:43 | Physical Therapy Daily Note ---
PT Daily Note-Current Subjective Pt in recliner with live sitter present. Pt asks this therapist to find his shoes. Pt allowed to look in closet and under bed but did not find any shoes. Pt reports he always has back pain, rated at 5/10. Pt agreeable to treatment. "Lets go look out the window" upon leaving his room. 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 Mental Status Patient Orientation: Person, Place Transfers SCALE: Activities may be completed with or without assistive devices. 9-Rctytbsfhz-ncumaev completes the activity by him/herself with no assistance from a helper. 5-Set-up or Clean-up Assistance-helper sets up or cleans up; patient completes activity. [place] assists only prior to or following the activity. 4-Supervision or Touching Assistance-helper provides verbal cues and/or touching/steadying and/or contact guard assistance as patient completes acti vity. Assistance may be provided throughout the activity or intermittently. 3-Partial/Moderate Assistance-helper does LESS THAN HALF the effort. [place] lifts, holds or supports trunk or limbs, but provides less than half the effort. 2-Substantial/Maximal Assistance-helper does MORE THAN HALF the effort. [place] lifts or holds trunk or limbs and provides more than half the effort. 6-Weyzwjczs-llfpyr does ALL the effort. Patient does none of the effort to complete the activity. Or, the assistance of 2 or more helpers is required for the patient to complete the activity. If activity was not attempted, code reason: 7-Patient Refused. 9-Not Applicable-not attempted and the patient did not perform the activity before the current illness, exacerbation or injury. 10-Not Attempted due to Environmental Limitations-(lack of equipment, weather restraints, etc.). 88-Not Attempted due to Medical Conditions or Safety Concerns. CGA for all transfers Exercises NuStep Minutes: 10 NuStep Workload: 1 Treatments Pt amb with FWW 2 x 250ft, 2 x 150ft with CGA and f/u of w/c. Pt amb at good speed, able to maintain proximity to walker without cueing today. Assessment Current Status: Good Progress Pt decreased dependence with mobility today. Better balance and endurance with above activities. Good participation and followed instructions well. Pt back to recliner with call light and ambu alarm activated. PT Short Term Goals Short Term Goals Time Frame: Jan 29, 2021 Roll Left & Right: 6 Sit to lyin Lying to sitting on side of be: 6 Sit to stand: 4 (SBA) Chair/ucn-ze-emgyw transfer: 4 (SBA) Walk 10 feet: 4 (SA) Walk 50 feet with two turns: 4 (SBA) PT [facility] Goals [facility] Goals PT [facility] Light Serv[employer] Goals Time Frame: Feb 12, 2021 Roll Left & Right (QC): 6 Sit to Lying (QC): 6 Lying-Sitting on Side/Bed(QC): 6 Sit to Stand (QC): 5 Chair/Snz-oi-Pmhwf Xfer(QC): 5 Toilet Transfer (QC): 5 Car Transfer (QC): 5 Does the Patient Walk: Yes Walk 10 feet (QC): 5 Walk 50ft with 2 Turns (QC): 5 Walk 150 ft (QC): 5 Walking 10ft on Uneven Surface: 5 1 Step (curb) (QC): 4 4 Steps (QC): 4 12 Steps (QC): 88 Picking up an Object (QC): 4 Wheel 50 feet with 2 turns (QC: 9 Wheel 150 feet: 9 PT Plan Treatment/Plan Treatment Plan: Continue Plan of Care Treatment Plan: Bed Mobility, Education, Functional Activity Rizwan, Functional Strength, Group Therapy, Gait, Safety, Therapeutic Exercise, Transfers Treatment Duration: Feb 12, 2021 Frequency: At least 5 of 7 days/Wk (IRF) Estimated Hrs Per Day: 1.5 hours per day Patient and/or Family Agrees t: Yes Time/GCodes Time In: 1000 Time Out: 1045 Total Billed Treatment Time: 45 Total Billed Treatment 1, Gait 30' Ex 15' DILIP HOLLOWAY CPTA Jan 26, 2021 10:43
--- NOTE | 2021-01-26 16:02 | Therapy Group Daily Note ---
Therapy Daily Group Note Patient Education Topic Home Safety Exercises LE Seated Exercise, UE Exercise Session Ratio (pt:therapist): 3:1 Goal of Session: Home Safety Strategies, UE/LE Strengthing Goal Met for this Session: Yes Pt Benefit of Group: Contributions to Others, F/U Use of Strategies @Home, Increased Functional Safety, Increased Functional Strength, Improved Cognition, Recognition of Peers, Socialization Other/Notes Pt ambulated to PT/OT Group using FWW. Group consists of Introduction (name), Socialization, Seated UE/LE Exercises, Home Safety Activity and Home Safety Education. Pt participated in Group by introducing self appropriately, actively listening to peers, completing UE & LE Exercises as well as citing examples of improvement that could be made in own home for safety. Pt had to asked to return to chair as pt wanted to get up in the middle of Group twice. Pt returned to room at end of Group then transfer to Supine in bed. All needs met, call light in hand. Start Time: 13:00 Stop Time: 14:25 Total Billed Treatment Time: 85 Total Billed Treatment 1, GRP (85m) GEORGE JONES PTA Jan 26, 2021 16:02
[2021-01-26] MEDS: TAMSULOSIN 0.4 MG (FLOMAX) CAP PO SCH (17:19)
[2021-01-26 20:00] VITALS: BP 135/76
[2021-01-26] MEDS: OLANZapine 5 MG (ZyPREXA) TAB PO SCH (20:31)
[2021-01-26] MEDS: MELATONIN 3 MG TABLET PO PRN (20:32)
--- NOTE | 2021-01-27 05:35 | PM&R Progress Note ---
Subjective HPI/CC On Admission Date Seen by Provider: Jan 27, 2021 Time Seen by Provider: 10:00 Subjective/Events-last exam 01/27/21: Pt likes to walk the halls Confusion is lifting a bit Still a fall risk 01/26/2021: Pt doing pretty well Bowels moved Confusion is noted Difficulty redirecting Dr. Busby will initiate a cystocope soon 01/25/2021: Patient improved overall Sleeping better Had urinary retention requiring in and out caths Confused but redirectable 01/24/2021: Pt very confused Had an in-and-out catheter at 6:00 this morning Voiding 300 at a time Zyprexa at night 01/23/21: Pt doing very well medically but he is very difficult to redirect Hgb 10 One on one sitter now Ativan and Xanax given last night Zyprexa helped im sleep until 3:00 In and out caths ordered by urology consults Review of Systems General: Fatigue, Malaise Objective Exam Vital Signs Vital Signs Date Time Temp Pulse Resp B/P (MAP) Pulse Ox O2 Delivery O2 Flow Rate FiO2 01/27/21 19:48 37.0 76 12 147/83 (104) 96 Room Air Capillary Refill : General Appearance: No Apparent Distress, WD/WN, Chronically ill, Thin HEENT: PERRL/EOMI, Normal ENT Inspection, Pharynx Normal Neck: Full Range of Motion, Normal Inspection, Non Tender, Supple, Carotid Bruit Respiratory: Chest Non Tender, Lungs Clear, Normal Breath Sounds, No Accessory Muscle Use, No Respiratory Distress Cardiovascular: Regular Rate, Rhythm, No Edema, No Gallop, No JVD, No Murmur, Normal Peripheral Pulses Gastrointestinal: Normal Bowel Sounds, No Organomegaly, No Pulsatile Mass, Non Tender, Soft Back: Normal Inspection, No CVA Tenderness, No Vertebral Tenderness Extremity: Normal Capillary Refill, Normal Inspection, Normal Range of Motion, Non Tender, No Calf Tenderness, No Pedal Edema Neurologic/Psychiatric: Alert, No Motor/Sensory Deficits, Normal Mood/Affect, Abnormal Gait, Disoriented, Motor Weakness (Generalized weakness) Skin: Normal Color, Warm/Dry Lymphatic: No Adenopathy Results/Procedures Lab Patient resulted labs reviewed. FIM Transfers Therapy Code Descriptions/Definitions Functional [place] Measure: 0=Not Assessed/NA 4=Minimal Assistance 1=Total Assistance 5=Supervision or Setup 2=Maximal Assistance 6=Modified [place] 3=Moderate Assistance 7=Complete IndependenceSCALE: Activities may be completed with or without assistive devices. 7-Wisyfjyzeb-fxfmfjy completes the activity by him/herself with no assistance from a helper. 5-Set-up or Clean-up Assistance-helper sets up or cleans up; patient completes activity. [place] assists only prior to or following the activity. 4-Supervision or Touching Assistance-helper provides verbal cues and/or touching/steadying and/or contact guard assistance as patient completes activity. Assistance may be provided throughout the activity or intermittently. 3-Partial/Moderate Assistance-helper does LESS THAN HALF the effort. [place] lifts, holds or supports trunk or limbs, but provides less than half the effort. 2-Substantial/Maximal Assistance-helper does MORE THAN HALF the effort. [place] lifts or holds trunk or limbs and provides more than half the effort. 1-Eujjaegxo-wgfwzp does ALL the effort. Patient does none of the effort to complete the activity. Or, the assistance of 2 or more helpers is required for the patient to complete the activity. If activity was not attempted, code reason: 7-Patient Refused. 9-Not Applicable-not attempted and the patient did not perform the activity before the current illness, exacerbation or injury. 10-Not Attempted due to Environmental Limitations-(lack of equipment, weather restraints, etc.). 88-Not Attempted due to Medical Conditions or Safety Concerns. Roll Left to Right (QC): 6 Sit to Lying (QC): 6 Sit to Stand (QC): 4 Chair/Vhl-ki-Qzjyg Xfer(QC): 4 Car Transfer (QC): 4 Gait Training Does the Patient Walk?: Yes Distance: 2 x 150' Walk 10 feet (QC): 4 Walk 50 ft with 2 Turns(QC): 4 Walk 150 ft (QC): 3 Walking 10ft/uneven surface-QC: 4 Gait Assistive Device: FWW Wheelchair Training Does the Pt Use a Wheelchair?: No Wheel 50 ft with 2 turns (QC): 9 Wheel 150 ft (QC): 9 Stair Training #of Steps: 1 1 Step (curb) (QC): 4 4 Steps (QC): 88 12 Steps (QC): 88 Balance Picking up an Object (QC): 4 ADL-Treatment Eating (QC): 3 (Min A, pt spilled food over self requiring assist to clean, required min verbal and tactile cues for sequencing.) Oral Hygiene (QC): 3 (Assist standing balance at sink, pt able to complete task with moderate verbal cues.) Shower/Bathe Self (QC): 3 (Min A standing balance, pt able to wash/dry all parts, moderate verbal cues for sequencing and safety. ) Upper Body Dressing (QC): 4 (SBA) Lower Body Dressing (QC): 3 (Min A standing balance, pt able to don/doff pants and brief.) On/Off Footwear (QC): 4 (SBA, pt able to doff/don gripper socks.) Toileting Hygiene (QC): 3 (Min A standing at toilet to urinate. Pt missed the bowl occassionally requiring cues.) Assessment/Plan Assessment and Plan Assess & Plan/Chief Complaint Assessment: Hemorrhagic stroke Encephalopathy Urinary retention Pulled Sahu catheter out bulb intact upon arrival on 01/22/2021 Hypertension Hyperlipidemia Plan: Aggressive rehabilitation Urology consult Antipsychotics for encephalopathy 01/23/21: Monitor confusion Zyprexa and anti-psychotics 01/24/2021: Supportive care Confusion management 01/25/2021: Urinary retention management Urology appreciated Confusion is improved 01/26/2021: Supportive care Sitter required Fall risk 01/27/21: Monitor closely Fall risk (1) Hemorrhagic stroke RIGOBERTO HODGES DO Jan 27, 2021 05:34
[2021-01-27] MEDS: BETHANECHOL 25 MG (URECHOLINE) TAB PO SCH ×4 (06:56→21:16)
[2021-01-27 08:00] VITALS: BP 140/62
--- NOTE | 2021-01-27 08:37 | Occupational Ther Daily Note ---
OT Current Status-Daily Note Subjective Pt seated in recliner, sitter present. Pt agreeable to OT tx with focus on ADLs. Mental Status/Objective Patient Orientation: Person, Confused ADL-Treatment Therapy Code Descriptions/Definitions Functional [place] Measure: 0=Not Assessed/NA 4=Minimal Assistance 1=Total Assistance 5=Supervision or Setup 2=Maximal Assistance 6=Modified [place] 3=Moderate Assistance 7=Complete IndependenceSCALE: Activities may be completed with or without assistive devices. 4-Dwplxacymu-ovkofpj completes the activity by him/herself with no assistance fr om a helper. 5-Set-up or Clean-up Assistance-helper sets up or cleans up; patient completes activity. [place] assists only prior to or following the activity. 4-Supervision or Touching Assistance-helper provides verbal cues and/or touching/steadying and/or contact guard assistance as patient completes activity. Assistance may be provided throughout the activity or intermittently. 3-Partial/Moderate Assistance-helper does LESS THAN HALF the effort. [place] lifts, holds or supports trunk or limbs, but provides less than half the effort. 2-Substantial/Maximal Assistance-helper does MORE THAN HALF the effort. [place] lifts or holds trunk or limbs and provides more than half the effort. 6-Zwrmlzayw-mndeyg does ALL the effort. Patient does none of the effort to complete the activity. Or, the assistance of 2 or more helpers is required for the patient to complete the activity. If activity was not attempted, code reason: 7-Patient Refused. 9-Not Applicable-not attempted and the patient did not perform the activity before the current illness, exacerbation or injury. 10-Not Attempted due to Environmental Limitations-(lack of equipment, weather restraints, etc.). 88-Not Attempted due to Medical Conditions or Safety Concerns. Eating (QC): 5 (set up) Oral Hygiene (QC): 4 (CGA standing at sink) Shower/Bathe Self (QC): 4 (CGA in stand, pt able to wash/dry all parts.) Upper Body Dressing (QC): 5 (set up) Lower Body Dressing (QC): 4 (CGA for pant hike) On/Off Footwear: 5 (set up assist) Toileting Hygiene (QC): 4 (CGA in stand) Toilet Transfer (QC): 4 (CGA) Other Treatment Pt seated in recliner, agreeable to OT tx with focus on showering. Pt used FWW to perform functional mobility into bathroom and onto SC. Pt doffed clothes, then completed shower with CGA in stand. Pt washed/dried all parts with min verbal cues for safety. Pt then donned clothing, with CGA in stand for pant hike, and min verbal cues for safety. Pt used FWW to stand at sink to complete oral care, CGA. Pt did not require cues for sequencing with oral care. Pt returned to recliner, and OT cleaned up shower area. Pt then used FWW to perform functional mobility to therapy gym, CGA, and cues for direction. In order to increase BUE strength and activity tolerance, pt completed arm bike, x15 mins, at 25 Watt resistance. Pt took rest breaks as needed. Pt became distracted by objects on table, picking up objects and looking at them. Pt required cue to be redirected to arm bike. Pt placed 1" pegs into foam pegboard using bilateral hands, with 1lb wrist weight BUEs. Pt able to place x100 pegs, min verbal cues to redirect to task. Pt used FWW to return to room, cues for direction. Post tx, pt seated in recliner, call light in reach, all needs met, chair alarm activated and live sitter present. Education OT Patient Education: Correct positioning, Exercise program, Modified ADL techniques, Progress toward Goal/Update tx plan, Purpose of tx/functional activities, Rehab process, Safety issues, Transfer techniques Teaching Recipient: Patient Teaching Methods: Discussion Response to Teaching: Reinforcement Needed OT Short Term Goals Short Term Goals Time Frame: Feb 02, 2021 Oral hygiene: 5 Toileting hygiene: 4 Shower/bathe self: 4 Upper body dressin Lower body dressin OT Supervisor Order Takers Goals [facility] Goals Time Frame: Feb 20, 2021 Eating (QC): 6 Oral Hygiene (QC): 6 Toileting Hygiene (QC): 6 Shower/Bathe Self (QC): 6 Upper Body Dressing (QC): 6 Lower Body Dressing (QC): 6 On/Off Footwear (QC): 6 Additional Goals: 1-Demonstrate ADL Tasks, 2-Verbalize Understanding, 3- ImproveStrength/[place] 1=Demonstrate adherence to instructed precautions during ADL tasks. 2=Patient will verbalize/demonstrate understanding of assistive devices/modifications for ADL. 3=Patient will improve strength/tolerance for activity to enable patient to perform ADL's. OT Education/Plan Problem List/Assessment Assessment: Decreased Activ Tolerance, Decreased Safety Aware, Decreased UE Strength, Impaired Cognition, Impaired Funct Balance, Impaired I ADL's, Impaired Self-Care Skills Discharge Recommendations Plan/Recommendations: Continue POC Treatment Plan/Plan of Care Patient would benefit from OT for education, treatment and training to promote independence in ADL's, mobility, safety and/or upper extremity function for ADL's. Plan of Care: ADL Retraining, Functional Mobility, Group Exercise/Act as Ind, UE Funct Exercise/Act Treatment Duration: Feb 20, 2021 Frequency: At least 5 of 7 days/Wk (IRF) Estimated Hrs Per Day: 1.5 hours per day Rehab Potential: Fair Time/GCodes Start Time: 08:00 Stop Time: 09:15 Total Time Billed (hr/min): 75 Billed Treatment Time 1, ADL 2 (25'), EX (20'), FA 2 (30)' ELISEO TEJADA OT Jan 27, 2021 08:37
[2021-01-27] MEDS: CLOPIDOGREL 75 MG (PLAVIX) TABLET PO SCH (09:19)
[2021-01-27] MEDS: amLODIPine 5 MG (NORVASC) TAB PO SCH (09:19)
[2021-01-27] MEDS: DOCUSATE SODIUM 100 MG (COLACE) CAP PO SCH ×2 (09:19→21:16)
[2021-01-27] MEDS: LORATADINE (CLARITIN) 10 MG TAB PO SCH (09:19)
[2021-01-27] MEDS: ISOSORBIDE MONONITRATE 30 MG (IMDUR) TAB PO SCH (09:19)
[2021-01-27] MEDS: FAMOTIDINE 20 MG (PEPCID) TABLET PO SCH (09:19)
[2021-01-27] MEDS: LOSARTAN 50 MG (COZAAR) TAB PO SCH ×2 (09:19→21:17)
[2021-01-27] MEDS: SENNA W/DOCUSATE (SENOKOT S) TABLET PO SCH ×2 (09:19→21:16)
[2021-01-27] MEDS: polyethylene glycoL POWDER 17 GM (MIRALAX) PACK PO SCH ×2 (09:20→21:16)
[2021-01-27] MEDS: doxAzosin 4 MG (CARDURA) TAB PO SCH (09:20)
[2021-01-27 09:24] VITALS: BP 163/77
--- NOTE | 2021-01-27 09:24 | Progress Note - Urology ---
Progress Note-Urology Progress Notes/Assess & Plan Progress/Assessment & Plan VOIDING AND EMPTYING BETTER. CONTINUE SAME PLAN Final Diagnosis RETENTION DAMEON LARA MD Jan 27, 2021 09:24
[2021-01-27] MEDS: ALPRAZolam 0.25 MG (XANAX) TAB PO PRN ×2 (09:48→21:17)
--- NOTE | 2021-01-27 11:10 | Physical Therapy Daily Note ---
PT Daily Note-Current Subjective Patient in recliner pre tx, agrees to PT, has 5/10 pain "in my head". Appearance Patient in recliner post tx with nurse call, phone, tray, all needs met. Chair alarm on and sitter in room. Mental Status Patient Orientation: Person, Confused Transfers SCALE: Activities may be completed with or without assistive devices. 3-Mqycmshnwx-fhnmkaz completes the activity by him/herself with no assistance from a helper. 5-Set-up or Clean-up Assistance-helper sets up or cleans up; patient completes activity. [place] assists only prior to or following the activity. 4-Supervision or Touching Assistance-helper provides verbal cues and/or touching/steadying and/or contact guard assistance as patient completes activity. Assistance may be provided throughout the activity or intermittently. 3-Partial/Moderate Assistance-helper does LESS THAN HALF the effort. [place] lifts, holds or supports trunk or limbs, but provides less than half the effort. 2-Substantial/Maximal Assistance-helper does MORE THAN HALF the effort. [place] lifts or holds trunk or limbs and provides more than half the effort. 1-Lczjmmcve-dfypmt does ALL the effort. Patient does none of the effort to complete the activity. Or, the assistance of 2 or more helpers is required for the patient to complete the activity. If activity was not attempted, code reason: 7-Patient Refused. 9-Not Applicable-not attempted and the patient did not perform the activity before the current illness, exacerbation or injury. 10-Not Attempted due to Environmental Limitations-(lack of equipment, weather restraints, etc.). 88-Not Attempted due to Medical Conditions or Safety Concerns. Sit to Stand (QC): 4 Chair/Ikm-kf-Ptzya Xfer(QC): 4 Gait Training Distance: 200'x2, 150' Walk 10 feet (QC): 4 Walk 50 ft with 2 Turns(QC): 4 Walk 150 ft (QC): 4 Gait Persons Needed: 1 Gait Assistive Device: FWW Slow ambulation, sometimes unsteady with turning, distracted easily, leans heavily on arms, slumped posture Exercises Seated Therapy Exercises: Ankle pumps, Hip flexion, Hip abd/add (with ball and GTB) Seated Reps: 20 Standing: Hip Abduction, Hamstring curls, Heel/toe raises, Marching, Mini squats Standing Reps: 15 LAQ alternating for 5 min NuStep Minutes: 15 NuStep Workload: 4 Treatments transfers, ambulation, functional strengthening Assessment Current Status: Fair Progress Patient needs close attention during ambulation for direction and occasionally he has some unsteadiness. PT Short Term Goals Short Term Goals Time Frame: Jan 29, 2021 Roll Left & Right: 6 Sit to lyin Lying to sitting on side of be: 6 Sit to stand: 4 (SBA) Chair/fwp-qp-opkgn transfer: 4 (SBA) Walk 10 feet: 4 (SA) Walk 50 feet with two turns: 4 (SBA) PT Identity Management Consultant Goals Identity Management Consultant Goals PT Identity Management Consultant Goals Time Frame: Feb 12, 2021 Roll Left & Right (QC): 6 Sit to Lying (QC): 6 Lying-Sitting on Side/Bed(QC): 6 Sit to Stand (QC): 5 Chair/Zvg-mw-Xjrnd Xfer(QC): 5 Toilet Transfer (QC): 5 Car Transfer (QC): 5 Does the Patient Walk: Yes Walk 10 feet (QC): 5 Walk 50ft with 2 Turns (QC): 5 Walk 150 ft (QC): 5 Walking 10ft on Uneven Surface: 5 1 Step (curb) (QC): 4 4 Steps (QC): 4 12 Steps (QC): 88 Picking up an Object (QC): 4 Wheel 50 feet with 2 turns (QC: 9 Wheel 150 feet: 9 PT Plan Problem List Problem List: Activity Tolerance, Functional Strength, Safety, Balance, Gait, Transfer, Bed Mobility, ROM Treatment/Plan Treatment Plan: Continue Plan of Care Treatment Plan: Bed Mobility, Education, Functional Activity [place], Functional Strength, Group Therapy, Gait, Safety, Therapeutic Exercise, Transfers Treatment Duration: Feb 12, 2021 Frequency: At least 5 of 7 days/Wk (IRF) Estimated Hrs Per Day: 1.5 hours per day Patient and/or Family Agrees t: Yes Safety Risks/Education Patient Education: Gait Training, Transfer Techniques, Correct Positioning, Safety Issues Teaching Recipient: Patient Teaching Methods: Demonstration, Discussion Response to Teaching: Reinforcement Needed Time/GCodes Time In: 1000 Time Out: 1115 Total Billed Treatment Time: 75 Total Billed Treatment 1 visit EX 45' FA 30' MAC GONZALEZ PT Jan 27, 2021 11:10
--- NOTE | 2021-01-27 12:16 | Speech Therapy Daily Note ---
Speech Daily Progress Note Subjective Date Seen by Provider: Jan 27, 2021 Time Seen by Provider: 00:30 Patient was sitting up in his recliner eating his lunch when I entered his room. The sitter aid was present. Objective Patient answered y/n and simple questions during his meal at 70% with moderate cues/repetitions. Assessment Assessment Current Status: Fair Progress Treatment Plan Continue Plan of Care Speech Short Term Goals Short Term Goals Short Term Goals 1) Patient will complete orientation tasks related to her daily needs at 60% or greater with minimal cues. 2) Patient will complete safety awareness tasks related to her daily needs at 60% or greater with minimal cues. Speech Long-Term Goals Long-Term Goals Patient will improve cognitive function for safety and orientation. Speech-Plan Patient/Family Goals Patient/Family Goals: Patient's discharge plan is unknown at this time. Treatment Plan Speech Therapy Treatment Plan: Continue Plan of Care Treatment Duration: Feb 06, 2021 Frequency: 4 times per week (Patient will receive skilled ST 4-5x per week) Estimated Hrs Per Day: .5 hour per day Rehab Potential: Fair Barriers to Learning: Patient's moderate to severe dementia Pt/Family Agrees to Plan: Yes Safety Risks/Education Teaching Recipient: Patient Teaching Methods: Demonstration, Discussion Response to Teaching: Verbalize Understanding, Return Demonstration, Reinforcement Needed Education Topics Provided: Continued safety of staying in his chair. The patient verbally agrees, however he stands up very frequently and requires verbal/tactile cues to sit down Time Speech Therapy Time In: 12:30 Speech Therapy Time Out: 13:00 Total Billed Time: 30 Billed Treatment Time 1, SAMIR Melgar Jan 27, 2021 12:16
[2021-01-27] MEDS: TAMSULOSIN 0.4 MG (FLOMAX) CAP PO SCH (17:26)
[2021-01-27 19:48] VITALS: BP 147/83
[2021-01-27] MEDS: OLANZapine 5 MG (ZyPREXA) TAB PO SCH (21:17)
[2021-01-27] MEDS: MELATONIN 3 MG TABLET PO PRN (21:24)
[2021-01-28] MEDS ORDERED: LIDOCAINE UROJET 2% GEL 10 ML PKG TOP ONE (04:00)
[2021-01-28] MEDS ORDERED: LIDOCAINE UROJET 2% GEL 10 ML PKG ONE (04:02)
--- NOTE | 2021-01-28 05:26 | PM&R Progress Note ---
Subjective HPI/CC On Admission Date Seen by Provider: Jan 28, 2021 Time Seen by Provider: 10:00 Subjective/Events-last exam 01/28/2021: Pt doing a lot better More lucid [facility] Admission if he has a durable power of civil rights attorney Bowels moved on 01/25 In and out catheter about once a day since he had 900cc of retention 01/27/21: Pt likes to walk the halls Confusion is lifting a bit Still a fall risk 01/26/2021: Pt doing pretty well Bowels moved Confusion is noted Difficulty redirecting Dr. Busby will initiate a cystocope soon 01/25/2021: Patient improved overall Sleeping better Had urinary retention requiring in and out caths Confused but redirectable 01/24/2021: Pt very confused Had an in-and-out catheter at 6:00 this morning Voiding 300 at a time Zyprexa at night 01/23/21: Pt doing very well medically but he is very difficult to redirect Hgb 10 One on one sitter now Ativan and Xanax given last night Zyprexa helped im sleep until 3:00 In and out caths ordered by urology consults Review of Systems General: Fatigue, Malaise Genitourinary: Retention Neurological: Confusion Objective Exam Vital Signs Vital Signs Date Time Temp Pulse Resp B/P (MAP) Pulse Ox O2 Delivery O2 Flow Rate FiO2 01/28/21 21:00 96 Room Air 01/28/21 19:44 37.0 84 14 138/77 (97) Capillary Refill : General Appearance: No Apparent Distress, WD/WN, Chronically ill, Thin HEENT: PERRL/EOMI, Normal ENT Inspection, Pharynx Normal Neck: Full Range of Motion, Normal Inspection, Non Tender, Supple, Carotid Bruit Respiratory: Chest Non Tender, Lungs Clear, Normal Breath Sounds, No Accessory Muscle Use, No Respiratory Distress Cardiovascular: Regular Rate, Rhythm, No Edema, No Gallop, No JVD, No Murmur, Normal Peripheral Pulses Gastrointestinal: Normal Bowel Sounds, No Organomegaly, No Pulsatile Mass, Non Tender, Soft Back: Normal Inspection, No CVA Tenderness, No Vertebral Tenderness Extremity: Normal Capillary Refill, Normal Inspection, Normal Range of Motion, Non Tender, No Calf Tenderness, No Pedal Edema Neurologic/Psychiatric: Alert, No Motor/Sensory Deficits, Normal Mood/Affect, Abnormal Gait, Disoriented, Motor Weakness (Generalized weakness) Skin: Normal Color, Warm/Dry Lymphatic: No Adenopathy Results/Procedures Lab Patient resulted labs reviewed. FIM Transfers Therapy Code Descriptions/Definitions Functional [place] Measure: 0=Not Assessed/NA 4=Minimal Assistance 1=Total Assistance 5=Supervision or Setup 2=Maximal Assistance 6=Modified [place] 3=Moderate Assistance 7=Complete IndependenceSCALE: Activities may be completed with or without assistive devices. 0-Nfahkpcqyc-yfzjujm completes the activity by him/herself with no assistance from a helper. 5-Set-up or Clean-up Assistance-helper sets up or cleans up; patient completes activity. [place] assists only prior to or following the activity. 4-Supervision or Touching Assistance-helper provides verbal cues and/or touching/steadying and/or contact guard assistance as patient completes activity. Assistance may be provided throughout the activity or intermittently. 3-Partial/Moderate Assistance-helper does LESS THAN HALF the effort. [place] lifts, holds or supports trunk or limbs, but provides less than half the effort. 2-Substantial/Maximal Assistance-helper does MORE THAN HALF the effort. [place] lifts or holds trunk or limbs and provides more than half the effort. 2-Oaokpdgaa-yunwfn does ALL the effort. Patient does none of the effort to complete the activity. Or, the assistance of 2 or more helpers is required for the patient to complete the activity. If activity was not attempted, code reason: 7-Patient Refused. 9-Not Applicable-not attempted and the patient did not perform the activity before the current illness, exacerbation or injury. 10-Not Attempted due to Environmental Limitations-(lack of equipment, weather restraints, etc.). 88-Not Attempted due to Medical Conditions or Safety Concerns. Roll Left to Right (QC): 6 Sit to Lying (QC): 6 Sit to Stand (QC): 4 Chair/Rxl-wv-Yfpxf Xfer(QC): 4 Car Transfer (QC): 4 Gait Training Does the Patient Walk?: Yes Distance: 200'x2, 150' Walk 10 feet (QC): 4 Walk 50 ft with 2 Turns(QC): 4 Walk 150 ft (QC): 4 Walking 10ft/uneven surface-QC: 4 Gait Persons Needed: 1 Gait Assistive Device: FWW Wheelchair Training Does the Pt Use a Wheelchair?: No Wheel 50 ft with 2 turns (QC): 9 Wheel 150 ft (QC): 9 Stair Training #of Steps: 1 1 Step (curb) (QC): 4 4 Steps (QC): 88 12 Steps (QC): 88 Balance Picking up an Object (QC): 4 ADL-Treatment Eating (QC): 5 (set up) Oral Hygiene (QC): 4 (CGA standing at sink) Shower/Bathe Self (QC): 4 (CGA in stand, pt able to wash/dry all parts.) Upper Body Dressing (QC): 5 (set up) Lower Body Dressing (QC): 4 (CGA for pant hike) On/Off Footwear (QC): 5 (set up assist) Toileting Hygiene (QC): 4 (CGA in stand) Toilet Transfer (QC): 4 (CGA) Assessment/Plan Assessment and Plan Assess & Plan/Chief Complaint Assessment: Hemorrhagic stroke Encephalopathy Urinary retention Pulled Sahu catheter out bulb intact upon arrival on 01/22/2021 Hypertension Hyperlipidemia Plan: Aggressive rehabilitation Urology consult Antipsychotics for encephalopathy 01/23/21: Monitor confusion Zyprexa and anti-psychotics 01/24/2021: Supportive care Confusion management 01/25/2021: Urinary retention management Urology appreciated Confusion is improved 01/26/2021: Supportive care Sitter required Fall risk 01/27/21: Monitor closely Fall risk 01/28/2021: Monitor closely May need skilled care (1) Hemorrhagic stroke RIGOBERTO HODGES DO Jan 28, 2021 05:26
[2021-01-28] MEDS: BETHANECHOL 25 MG (URECHOLINE) TAB PO SCH ×4 (06:45→21:13)
[2021-01-28 08:00] VITALS: BP 132/71
--- NOTE | 2021-01-28 08:29 | Occupational Ther Daily Note ---
OT Current Status-Daily Note Subjective Pt in bed eating breakfast, live sitter present. ADL-Treatment Therapy Code Descriptions/Definitions Functional [place] Measure: 0=Not Assessed/NA 4=Minimal Assistance 1=Total Assistance 5=Supervision or Setup 2=Maximal Assistance 6=Modified [place] 3=Moderate Assistance 7=Complete IndependenceSCALE: Activities may be completed with or without assistive devices. 0-Nvkyhxzngo-ithslag completes the activity by him/herself with no assistance fr om a helper. 5-Set-up or Clean-up Assistance-helper sets up or cleans up; patient completes activity. [place] assists only prior to or following the activity. 4-Supervision or Touching Assistance-helper provides verbal cues and/or touching/steadying and/or contact guard assistance as patient completes activity. Assistance may be provided throughout the activity or intermittently. 3-Partial/Moderate Assistance-helper does LESS THAN HALF the effort. [place] lifts, holds or supports trunk or limbs, but provides less than half the effort. 2-Substantial/Maximal Assistance-helper does MORE THAN HALF the effort. [place] lifts or holds trunk or limbs and provides more than half the effort. 9-Tryorevnz-fqkhpq does ALL the effort. Patient does none of the effort to complete the activity. Or, the assistance of 2 or more helpers is required for the patient to complete the activity. If activity was not attempted, code reason: 7-Patient Refused. 9-Not Applicable-not attempted and the patient did not perform the activity before the current illness, exacerbation or injury. 10-Not Attempted due to Environmental Limitations-(lack of equipment, weather restraints, etc.). 88-Not Attempted due to Medical Conditions or Safety Concerns. Eating (QC): 6 (IND with breakfast) Upper Body Dressing (QC): 5 (set up) Lower Body Dressing (QC): 4 (CGA) On/Off Footwear: 5 (set up) Toileting Hygiene (QC): 4 (CGA in stand at toilet) Other Treatment Pt in bed eating breakfast, transferred supine to sit EOB with CGA. Pt changed h is clothes at EOB, CGA in stand for pant hike. He then used FWW to perform functional mobility to the bathroom, he left walker outside bathroom door and then stepped into bathroom to toilet, min A with balance. Pt stood at toilet to urinate, then went to sink to wash hands. Pt required cue to locate paper towels. OT placed walker back in front of him, educating him on safety aspect of keeping walker with him at all times. Pt then performed functional mobility to therapy gym, cues to locate gym. In order to increase BUE strength and activity tolerance, pt complete x18 mins on arm bike, 25 Watt resistance. Pt removed beads from moderate resistance theraputty in order to focus on fine motor coordination, strength and sequencing. Pt used FWW to return to room, with cues for direction. Post tx, pt seated in recliner, call light in reach and all needs met. Chair alarm activated and live sitter present. Education OT Patient Education: Correct positioning, Exercise program, Home exercise program, Modified ADL techniques, Progress toward Goal/Update tx plan, Purpose of tx/functional activities, Safety issues, Transfer techniques Teaching Recipient: Patient Teaching Methods: Discussion Response to Teaching: Reinforcement Needed OT Short Term Goals Short Term Goals Time Frame: Feb 02, 2021 Oral hygiene: 5 Toileting hygiene: 4 Shower/bathe self: 4 Upper body dressin Lower body dressin OT Packer Fuser Goals Packer Fuser Goals Time Frame: Feb 20, 2021 Eating (QC): 6 Oral Hygiene (QC): 6 Toileting Hygiene (QC): 6 Shower/Bathe Self (QC): 6 Upper Body Dressing (QC): 6 Lower Body Dressing (QC): 6 On/Off Footwear (QC): 6 Additional Goals: 1-Demonstrate ADL Tasks, 2-Verbalize Understanding, 3- ImproveStrength/Rizwan 1=Demonstrate adherence to instructed precautions during ADL tasks. 2=Patient will verbalize/demonstrate understanding of assistive devices/modifications for ADL. 3=Patient will improve strength/tolerance for activity to enable patient to perform ADL's. OT Education/Plan Problem List/Assessment Assessment: Decreased Activ Tolerance, Decreased Safety Aware, Decreased UE Strength, Impaired Cognition, Impaired Funct Balance, Impaired I ADL's, Impaired Self-Care Skills Discharge Recommendations Plan/Recommendations: Continue POC Treatment Plan/Plan of Care Patient would benefit from OT for education, treatment and training to promote i ndependence in ADL's, mobility, safety and/or upper extremity function for ADL's. Plan of Care: ADL Retraining, Functional Mobility, Group Exercise/Act as Ind, UE Funct Exercise/Act Treatment Duration: Feb 20, 2021 Frequency: At least 5 of 7 days/Wk (IRF) Estimated Hrs Per Day: 1.5 hours per day Rehab Potential: Fair Time/GCodes Start Time: 08:00 Stop Time: 09:00 Total Time Billed (hr/min): 60 Billed Treatment Time 1, ADL 2 (25'), EX (20'), FA (15) ELISEO TEJADA OT Jan 28, 2021 08:29
--- NOTE | 2021-01-28 09:31 | Speech Therapy Daily Note ---
Speech Daily Progress Note Subjective Date Seen by Provider: Jan 28, 2021 Time Seen by Provider: 00:30 Patient was sitting up in his recliner when I entered his room. The aid was present as a sitter for patient safety. Objective Patient answered simple and y/n questions at 60% with moderate cuing. Patient continues to require frequent redirection to sit down for safety. Assessment Assessment Current Status: Fair Progress Treatment Plan Continue Plan of Care Speech Short Term Goals Short Term Goals Short Term Goals 1) Patient will complete orientation tasks related to her daily needs at 60% or greater with minimal cues. 2) Patient will complete safety awareness tasks related to her daily needs at 6 0% or greater with minimal cues. Speech Photography Instructor Goals Photography Instructor Goals Patient will improve cognitive function for safety and orientation. Speech-Plan Patient/Family Goals Patient/Family Goals: Patient's discharge plans will be discussed by the Medicare rehab team this morning. The patient's level of confusion indicates he will not be safe to be left alone. Treatment Plan Speech Therapy Treatment Plan: Continue Plan of Care Treatment Duration: Feb 06, 2021 Frequency: 4 times per week (Patient will receive skilled ST 4-5x per week) Estimated Hrs Per Day: .5 hour per day Rehab Potential: Fair Barriers to Learning: Patient's moderate to severe level of dementia. Pt/Family Agrees to Plan: Yes Safety Risks/Education Teaching Recipient: Patient Teaching Methods: Demonstration, Discussion Response to Teaching: Verbalize Understanding, Return Demonstration Education Topics Provided: Continued safety within his room Time Speech Therapy Time In: 09:00 Speech Therapy Time Out: 09:30 Total Billed Time: 30 Billed Treatment Time 1, SAMIR Melgar Jan 28, 2021 09:31
[2021-01-28 09:36] VITALS: BP 145/79
[2021-01-28] MEDS: LOSARTAN 50 MG (COZAAR) TAB PO SCH ×2 (09:42→21:13)
[2021-01-28] MEDS: ISOSORBIDE MONONITRATE 30 MG (IMDUR) TAB PO SCH (09:42)
[2021-01-28] MEDS: SENNA W/DOCUSATE (SENOKOT S) TABLET PO SCH ×2 (09:43→21:13)
[2021-01-28] MEDS: FAMOTIDINE 20 MG (PEPCID) TABLET PO SCH (09:43)
[2021-01-28] MEDS: amLODIPine 5 MG (NORVASC) TAB PO SCH (09:43)
[2021-01-28] MEDS: CLOPIDOGREL 75 MG (PLAVIX) TABLET PO SCH (09:43)
[2021-01-28] MEDS: LORATADINE (CLARITIN) 10 MG TAB PO SCH (09:43)
[2021-01-28] MEDS: DOCUSATE SODIUM 100 MG (COLACE) CAP PO SCH ×2 (09:43→21:13)
[2021-01-28] MEDS: polyethylene glycoL POWDER 17 GM (MIRALAX) PACK PO SCH ×2 (09:43→21:13)
[2021-01-28] MEDS: doxAzosin 4 MG (CARDURA) TAB PO SCH (09:44)
--- NOTE | 2021-01-28 10:59 | Physical Therapy Daily Note ---
PT Daily Note-Current Subjective Patient in room pre tx, agrees to PT, has no complaints of pain. Appearance Patient in recliner post tx with nurse call, phone, tray, chair alarm on, legs elevated. Mental Status Patient Orientation: Person, Confused Transfers SCALE: Activities may be completed with or without assistive devices. 7-Creqwimqgy-ylsxgca completes the activity by him/herself with no assistance from a helper. 5-Set-up or Clean-up Assistance-helper sets up or cleans up; patient completes activity. [place] assists only prior to or following the activity. 4-Supervision or Touching Assistance-helper provides verbal cues and/or touching/steadying and/or contact guard assistance as patient completes activity. Assistance may be provided throughout the activity or intermittently. 3-Partial/Moderate Assistance-helper does LESS THAN HALF the effort. [place] lifts, holds or supports trunk or limbs, but provides less than half the effort. 2-Substantial/Maximal Assistance-helper does MORE THAN HALF the effort. [place] lifts or holds trunk or limbs and provides more than half the effort. 8-Ehmtankjr-xnwnvy does ALL the effort. Patient does none of the effort to complete the activity. Or, the assistance of 2 or more helpers is required for the patient to complete the activity. If activity was not attempted, code reason: 7-Patient Refused. 9-Not Applicable-not attempted and the patient did not perform the activity before the current illness, exacerbation or injury. 10-Not Attempted due to Environmental Limitations-(lack of equipment, weather restraints, etc.). 88-Not Attempted due to Medical Conditions or Safety Concerns. Sit to Stand (QC): 4 Chair/Xhr-bj-Xgyza Xfer(QC): 4 CGA Gait Training Distance: 300', 200', 150' Walk 10 feet (QC): 4 Walk 50 ft with 2 Turns(QC): 4 Walk 150 ft (QC): 4 Gait Persons Needed: 1 Gait Assistive Device: FWW SBA, slow ambulation, sometimes unsteady with turning Exercises Seated Therapy Exercises: Ankle pumps, Hip flexion, Hip abd/add (with ball and RTB) Standing: Hip Abduction, Hamstring curls, Heel/toe raises, Mini squats Standing Reps: 20 LAQ alternating for 5 min NuStep Minutes: 15 NuStep Workload: 4 Treatments transfers, ambulation, functional strengthening Assessment Current Status: Fair Progress improved balance with turning during ambulation, but still has occasional moments of unsteadiness PT Short Term Goals Short Term Goals Time Frame: Jan 29, 2021 Roll Left & Right: 6 Sit to lyin Lying to sitting on side of be: 6 Sit to stand: 4 (SBA) Chair/vhn-vg-scltb transfer: 4 (SBA) Walk 10 feet: 4 (SA) Walk 50 feet with two turns: 4 (SBA) PT Medical Reimbursement Manager Goals Care Home Goals PT Care Home Goals Time Frame: Feb 12, 2021 Roll Left & Right (QC): 6 Sit to Lying (QC): 6 Lying-Sitting on Side/Bed(QC): 6 Sit to Stand (QC): 5 Chair/Opx-xj-Cvrbc Xfer(QC): 5 Toilet Transfer (QC): 5 Car Transfer (QC): 5 Does the Patient Walk: Yes Walk 10 feet (QC): 5 Walk 50ft with 2 Turns (QC): 5 Walk 150 ft (QC): 5 Walking 10ft on Uneven Surface: 5 1 Step (curb) (QC): 4 4 Steps (QC): 4 12 Steps (QC): 88 Picking up an Object (QC): 4 Wheel 50 feet with 2 turns (QC: 9 Wheel 150 feet: 9 PT Plan Problem List Problem List: Activity Tolerance, Functional Strength, Safety, Balance, Gait, Transfer, Bed Mobility, ROM Treatment/Plan Treatment Plan: Continue Plan of Care Treatment Plan: Bed Mobility, Education, Functional Activity Rizwan, Functional Strength, Group Therapy, Gait, Safety, Therapeutic Exercise, Transfers Treatment Duration: Feb 12, 2021 Frequency: At least 5 of 7 days/Wk (IRF) Estimated Hrs Per Day: 1.5 hours per day Patient and/or Family Agrees t: Yes Safety Risks/Education Patient Education: Gait Training, Transfer Techniques, Correct Positioning, Safety Issues Teaching Recipient: Patient Teaching Methods: Demonstration, Discussion Response to Teaching: Reinforcement Needed Time/GCodes Time In: 1000 Time Out: 1100 Total Billed Treatment Time: 60 Total Billed Treatment 1 visit EX 30' FA 30' MAC GONZALEZ PT Jan 28, 2021 10:59
--- NOTE | 2021-01-28 12:33 | Progress Note - Urology ---
Progress Note-Urology Progress Notes/Assess & Plan Progress/Assessment & Plan HAD STRAIGHT CATH LAST NIGHT FOR RETENTION OF 650CC. CONTINUE SAME PLAN Final Diagnosis RETENTION DAMEON LARA MD Jan 28, 2021 12:33
--- NOTE | 2021-01-28 15:19 | Therapy Group Daily Note ---
Therapy Daily Group Note Patient Education Topic Other List Below (Safety Signs and what they mean) Exercises LE Seated Exercise, UE Exercise Session Ratio (pt:therapist): 4:1 Goal of Session: UE/LE Strengthing, Other (list) (Safety Signs and what they mean) Goal Met for this Session: Yes Pt Benefit of Group: Contributions to Others, F/U Use of Strategies @Home, Increased Functional Safety, Increased Functional Strength, Improved Cognition, Recognition of Peers, Socialization Other/Notes Pt ambulated to PT/OT Group. Group consisted of Introduction (Name, Where from), Socialization, Seated LE & UE Exercises as well Safety Sign Bingo and what the signs mean/how can safety be obtained. Pt participated in Group by actively listening to peers during Group, completing exercises and finding the safety signs as they are called out. Pt returns to room to use restroom and returns to recliner at end of Group with all needs met, call light in hand. Start Time: 13:00 Stop Time: 14:20 Total Billed Treatment Time: 80 Total Billed Treatment 1, GRP (80m) GEORGE JONES IRRIGATION ENGINEER Jan 28, 2021 15:19
[2021-01-28] MEDS: TAMSULOSIN 0.4 MG (FLOMAX) CAP PO SCH (17:20)
[2021-01-28 19:44] VITALS: BP 138/77
[2021-01-28] MEDS: ALPRAZolam 0.25 MG (XANAX) TAB PO PRN (21:13)
[2021-01-28] MEDS: OLANZapine 5 MG (ZyPREXA) TAB PO SCH (21:13)
[2021-01-29] MEDS: BETHANECHOL 25 MG (URECHOLINE) TAB PO SCH ×4 (05:37→22:15)
--- NOTE | 2021-01-29 05:38 | PM&R Progress Note ---
Subjective HPI/CC On Admission Date Seen by Provider: Jan 29, 2021 Time Seen by Provider: 11:00 Subjective/Events-last exam 01/29/2021: Pt is more calm but still requiring a sitter No other issues No pain Eating a drinking well 01/28/2021: Pt doing a lot better More lucid [facility] Admission if he has a durable power of corporate attorney Bowels moved on 01/25 In and out catheter about once a day since he had 900cc of retention 01/27/21: Pt likes to walk the halls Confusion is lifting a bit Still a fall risk 01/26/2021: Pt doing pretty well Bowels moved Confusion is noted Difficulty redirecting Dr. Busby will initiate a cystocope soon 01/25/2021: Patient improved overall Sleeping better Had urinary retention requiring in and out caths Confused but redirectable 01/24/2021: Pt very confused Had an in-and-out catheter at 6:00 this morning Voiding 300 at a time Zyprexa at night 01/23/21: Pt doing very well medically but he is very difficult to redirect Hgb 10 One on one sitter now Ativan and Xanax given last night Zyprexa helped im sleep until 3:00 In and out caths ordered by urology consults Review of Systems General: Fatigue, Malaise Neurological: Confusion Objective Exam Vital Signs Vital Signs Date Time Temp Pulse Resp B/P (MAP) Pulse Ox O2 Delivery O2 Flow Rate FiO2 01/29/21 19:12 36.5 88 16 137/72 (93) 98 Room Air Capillary Refill : General Appearance: No Apparent Distress, WD/WN, Chronically ill, Thin HEENT: PERRL/EOMI, Normal ENT Inspection, Pharynx Normal Neck: Full Range of Motion, Normal Inspection, Non Tender, Supple, Carotid Bruit Respiratory: Chest Non Tender, Lungs Clear, Normal Breath Sounds, No Accessory Muscle Use, No Respiratory Distress Cardiovascular: Regular Rate, Rhythm, No Edema, No Gallop, No JVD, No Murmur, Normal Peripheral Pulses Gastrointestinal: Normal Bowel Sounds, No Organomegaly, No Pulsatile Mass, Non Tender, Soft Back: Normal Inspection, No CVA Tenderness, No Vertebral Tenderness Extremity: Normal Capillary Refill, Normal Inspection, Normal Range of Motion, Non Tender, No Calf Tenderness, No Pedal Edema Neurologic/Psychiatric: Alert, No Motor/Sensory Deficits, Normal Mood/Affect, Abnormal Gait, Disoriented, Motor Weakness (Generalized weakness) Skin: Normal Color, Warm/Dry Lymphatic: No Adenopathy Results/Procedures Lab Patient resulted labs reviewed. FIM Transfers Therapy Code Descriptions/Definitions Functional [place] Measure: 0=Not Assessed/NA 4=Minimal Assistance 1=Total Assistance 5=Supervision or Setup 2=Maximal Assistance 6=Modified [place] 3=Moderate Assistance 7=Complete IndependenceSCALE: Activities may be completed with or without assistive devices. 9-Oasqbyrawh-uvlkzpq completes the activity by him/herself with no assistance from a helper. 5-Set-up or Clean-up Assistance-helper sets up or cleans up; patient completes activity. [place] assists only prior to or following the activity. 4-Supervision or Touching Assistance-helper provides verbal cues and/or touching/steadying and/or contact guard assistance as patient completes activity. Assistance may be provided throughout the activity or intermittently. 3-Partial/Moderate Assistance-helper does LESS THAN HALF the effort. [place] lifts, holds or supports trunk or limbs, but provides less than half the effort. 2-Substantial/Maximal Assistance-helper does MORE THAN HALF the effort. [place] lifts or holds trunk or limbs and provides more than half the effort. 3-Ptzdccuhs-ifgdoq does ALL the effort. Patient does none of the effort to complete the activity. Or, the assistance of 2 or more helpers is required for the patient to complete the activity. If activity was not attempted, code reason: 7-Patient Refused. 9-Not Applicable-not attempted and the patient did not perform the activity before the current illness, exacerbation or injury. 10-Not Attempted due to Environmental Limitations-(lack of equipment, weather restraints, etc.). 88-Not Attempted due to Medical Conditions or Safety Concerns. Roll Left to Right (QC): 6 Sit to Lying (QC): 6 Sit to Stand (QC): 4 Chair/Ucd-tj-Lzsjc Xfer(QC): 4 Car Transfer (QC): 4 Gait Training Does the Patient Walk?: Yes Distance: 300', 200', 150' Walk 10 feet (QC): 4 Walk 50 ft with 2 Turns(QC): 4 Walk 150 ft (QC): 4 Walking 10ft/uneven surface-QC: 4 Gait Persons Needed: 1 Gait Assistive Device: FWW Wheelchair Training Does the Pt Use a Wheelchair?: No Wheel 50 ft with 2 turns (QC): 9 Wheel 150 ft (QC): 9 Stair Training #of Steps: 1 1 Step (curb) (QC): 4 4 Steps (QC): 88 12 Steps (QC): 88 Balance Picking up an Object (QC): 4 ADL-Treatment Eating (QC): 6 (IND with breakfast) Oral Hygiene (QC): 4 (CGA standing at sink) Shower/Bathe Self (QC): 4 (CGA in stand, pt able to wash/dry all parts.) Upper Body Dressing (QC): 5 (set up) Lower Body Dressing (QC): 4 (CGA) On/Off Footwear (QC): 5 (set up) Toileting Hygiene (QC): 4 (CGA in stand at toilet) Toilet Transfer (QC): 4 (CGA) Assessment/Plan Assessment and Plan Assess & Plan/Chief Complaint Assessment: Hemorrhagic stroke Encephalopathy Urinary retention Pulled Sahu catheter out bulb intact upon arrival on 01/22/2021 Hypertension Hyperlipidemia Plan: Aggressive rehabilitation Urology consult Antipsychotics for encephalopathy 01/23/21: Monitor confusion Zyprexa and anti-psychotics 01/24/2021: Supportive care Confusion management 01/25/2021: Urinary retention management Urology appreciated Confusion is improved 01/26/2021: Supportive care Sitter required Fall risk 01/27/21: Monitor closely Fall risk 01/28/2021: Monitor closely May need skilled care 01/29/2021: Supportive care Sitter (1) Hemorrhagic stroke RIGOBERTO HODGES DO Jan 29, 2021 05:38
[2021-01-29 07:37] VITALS: BP 159/79
[2021-01-29] MEDS: DOCUSATE SODIUM 100 MG (COLACE) CAP PO SCH ×2 (08:07→22:15)
[2021-01-29] MEDS: FAMOTIDINE 20 MG (PEPCID) TABLET PO SCH (08:08)
[2021-01-29] MEDS: doxAzosin 4 MG (CARDURA) TAB PO SCH (08:08)
[2021-01-29] MEDS: ISOSORBIDE MONONITRATE 30 MG (IMDUR) TAB PO SCH (08:08)
[2021-01-29] MEDS: LOSARTAN 50 MG (COZAAR) TAB PO SCH ×2 (08:08→22:15)
[2021-01-29] MEDS: CLOPIDOGREL 75 MG (PLAVIX) TABLET PO SCH (08:08)
[2021-01-29] MEDS: amLODIPine 5 MG (NORVASC) TAB PO SCH (08:08)
[2021-01-29] MEDS: LORATADINE (CLARITIN) 10 MG TAB PO SCH (08:08)
[2021-01-29] MEDS: SENNA W/DOCUSATE (SENOKOT S) TABLET PO SCH ×2 (08:08→22:15)
--- NOTE | 2021-01-29 08:20 | Occupational Ther Daily Note ---
OT Current Status-Daily Note Subjective Pt in bed, live sitter present. Pt declines showering today. Mental Status/Objective Patient Orientation: Person, Confused ADL-Treatment Therapy Code Descriptions/Definitions Functional [place] Measure: 0=Not Assessed/NA 4=Minimal Assistance 1=Total Assistance 5=Supervision or Setup 2=Maximal Assistance 6=Modified [place] 3=Moderate Assistance 7=Complete IndependenceSCALE: Activities may be completed with or without assistive devices. 2-Vharnfieqi-vmnokhy completes the activity by him/herself with no assistance from a helper. 5-Set-up or Clean-up Assistance-helper sets up or cleans up; patient completes activity. [place] assists only prior to or following the activity. 4-Supervision or Touching Assistance-helper provides verbal cues and/or touching/steadying and/or contact guard assistance as patient completes activity. Assistance may be provided throughout the activity or intermittently. 3-Partial/Moderate Assistance-helper does LESS THAN HALF the effort. [place] lifts, holds or supports trunk or limbs, but provides less than half the effort. 2-Substantial/Maximal Assistance-helper does MORE THAN HALF the effort. [place] lifts or holds trunk or limbs and provides more than half the effort. 8-Jhklaaeys-ggrzid does ALL the effort. Patient does none of the effort to complete the activity. Or, the assistance of 2 or more helpers is required for the patient to complete the activity. If activity was not attempted, code reason: 7-Patient Refused. 9-Not Applicable-not attempted and the patient did not perform the activity before the current illness, exacerbation or injury. 10-Not Attempted due to Environmental Limitations-(lack of equipment, weather restraints, etc.). 88-Not Attempted due to Medical Conditions or Safety Concerns. Oral Hygiene (QC): 4 (SBA) On/Off Footwear: 5 Toileting Hygiene (QC): 4 (CGA, pt able to perform hygiene and clothing managment) Toilet Transfer (QC): 4 (CGA) Other Treatment Pt laying in bed, transferred supine to sit EOB in order to don shoes. Pt then used FWW to perform functional mobility to therapy gym, CGA with cues for direction. In order to increase BUE strength and activity tolerance, pt completed x20 mins on arm bike, 25 Watt resistance. Pt took rest breaks as needed, with min verbal cues to continue with task due to distractibility. Pt then completed peg natalio task, matching colors. This was performed in order to improve sequencing and problem solving. After initial instructions and assi stance with the first few pegs, pt able to complete task with 1 error. Max cues provided, but pt unable to locate or problem solve in order to fix error. Once OT removed error, pt continued with task, placing remainder pegs with 1 error (assist to correct error). Pt removed beads from moderate resistance putty in order to increase sequencing, fine motor strength, coordination, and improve cognition. Pt used FWW to return to room, CGA with cues for direction. Pt completed toileting, stood at sink to wash hands, and completed oral care, then transferred to reclienr. Post tx, pt seated in recliner, call light in reach and all needs met, live sitter present. Education OT Patient Education: Correct positioning, Energy conservation, Exercise program, Modified ADL techniques, Progress toward Goal/Update tx plan, Purpose of tx/functional activities, Rehab process Teaching Recipient: Patient Teaching Methods: Discussion Response to Teaching: Reinforcement Needed OT Short Term Goals Short Term Goals Time Frame: Feb 02, 2021 Oral hygiene: 5 Toileting hygiene: 4 Shower/bathe self: 4 Upper body dressin Lower body dressin OT Senior Economist Goals Senior Economist Goals Time Frame: Feb 20, 2021 Eating (QC): 6 Oral Hygiene (QC): 6 Toileting Hygiene (QC): 6 Shower/Bathe Self (QC): 6 Upper Body Dressing (QC): 6 Lower Body Dressing (QC): 6 On/Off Footwear (QC): 6 Additional Goals: 1-Demonstrate ADL Tasks, 2-Verbalize Understanding, 3-ImproveStrength/Rizwan 1=Demonstrate adherence to instructed precautions during ADL tasks. 2=Patient will verbalize/demonstrate understanding of assistive devices/modifications for ADL. 3=Patient will improve strength/tolerance for activity to enable patient to perf orm ADL's. OT Education/Plan Problem List/Assessment Assessment: Decreased Activ Tolerance, Decreased Safety Aware, Decreased UE Strength, Impaired Cognition, Impaired Funct Balance, Impaired I ADL's, Impaired Self-Care Skills Discharge Recommendations Plan/Recommendations: Continue POC Treatment Plan/Plan of Care Patient would benefit from OT for education, treatment and training to promote independence in ADL's, mobility, safety and/or upper extremity function for ADL's. Plan of Care: ADL Retraining, Functional Mobility, Group Exercise/Act as Ind, UE Funct Exercise/Act Treatment Duration: Feb 20, 2021 Frequency: At least 5 of 7 days/Wk (IRF) Estimated Hrs Per Day: 1.5 hours per day Rehab Potential: Fair Time/GCodes Start Time: 08:00 Stop Time: 09:15 Total Time Billed (hr/min): 75 Billed Treatment Time 1, EX (20'), FA 4 (55') ELISEO TEJADA OT Jan 29, 2021 08:20
[2021-01-29] MEDS: polyethylene glycoL POWDER 17 GM (MIRALAX) PACK PO SCH ×2 (09:14→22:15)
--- NOTE | 2021-01-29 11:08 | Physical Therapy Daily Note ---
PT Daily Note-Current Subjective Patient in bed pre tx, agrees to PT, has no complaints of pain. Appearance Patient in recliner post tx with nurse call, phone, tray, all needs met, chair alarm on. Mental Status Patient Orientation: Person, Confused Transfers SCALE: Activities may be completed with or without assistive devices. 5-Ewtrssxqrl-uomugdm completes the activity by him/herself with no assistance from a helper. 5-Set-up or Clean-up Assistance-helper sets up or cleans up; patient completes activity. [place] assists only prior to or following the activity. 4-Supervision or Touching Assistance-helper provides verbal cues and/or touching/steadying and/or contact guard assistance as patient completes activity. Assistance may be provided throughout the activity or intermittently. 3-Partial/Moderate Assistance-helper does LESS THAN HALF the effort. [place] lifts, holds or supports trunk or limbs, but provides less than half the effort. 2-Substantial/Maximal Assistance-helper does MORE THAN HALF the effort. [place] lifts or holds trunk or limbs and provides more than half the effort. 3-Fimkfwcvv-qbeosq does ALL the effort. Patient does none of the effort to complete the activity. Or, the assistance of 2 or more helpers is required for the patient to complete the activity. If activity was not attempted, code reason: 7-Patient Refused. 9-Not Applicable-not attempted and the patient did not perform the activity before the current illness, exacerbation or injury. 10-Not Attempted due to Environmental Limitations-(lack of equipment, weather restraints, etc.). 88-Not Attempted due to Medical Conditions or Safety Concerns. Roll Left & Right (QC): 6 Lying to Sitting/Side of Bed(Q: 6 Sit to Stand (QC): 4 Chair/Mur-ol-Wutcs Xfer(QC): 4 Patient often needs cues for hand placement during sit <-> stand, will often keep hands on walker. Gait Training Distance: 300'x2, 150' Walk 10 feet (QC): 4 Walk 50 ft with 2 Turns(QC): 4 Walk 150 ft (QC): 4 Gait Persons Needed: 1 Gait Assistive Device: FWW SBA, slow ambulation, much more steady when turning. Needs cues for direction and to stay on task, can have a tendency to wander. Exercises Seated Therapy Exercises: Ankle pumps, Hip flexion, Hip abd/add (with ball and RTB) Seated Reps: 20 Standing: Hip Abduction, Heel/toe raises, Marching, Mini squats Standing Reps: 20 LAQ alternating for 5 min NuStep Minutes: 15 NuStep Workload: 5 Treatments bed mobility and transfers, ambulation, LE strengthening and endurance training Assessment Current Status: Fair Progress improving balance with turning, needs cues for hand placement with sit <-> stand PT Short Term Goals Short Term Goals Time Frame: Jan 29, 2021 Roll Left & Right: 6 Sit to lyin Lying to sitting on side of be: 6 Sit to stand: 4 (SBA) Chair/pab-xj-ettvj transfer: 4 (SBA) Walk 10 feet: 4 (SA) Walk 50 feet with two turns: 4 (SBA) PT Re Dye Hand Goals Re Dye Hand Goals PT Re Dye Hand Goals Time Frame: Feb 12, 2021 Roll Left & Right (QC): 6 Sit to Lying (QC): 6 Lying-Sitting on Side/Bed(QC): 6 Sit to Stand (QC): 5 Chair/Ove-zz-Ystcj Xfer(QC): 5 Toilet Transfer (QC): 5 Car Transfer (QC): 5 Does the Patient Walk: Yes Walk 10 feet (QC): 5 Walk 50ft with 2 Turns (QC): 5 Walk 150 ft (QC): 5 Walking 10ft on Uneven Surface: 5 1 Step (curb) (QC): 4 4 Steps (QC): 4 12 Steps (QC): 88 Picking up an Object (QC): 4 Wheel 50 feet with 2 turns (QC: 9 Wheel 150 feet: 9 PT Plan Problem List Problem List: Activity Tolerance, Functional Strength, Safety, Balance, Gait, Transfer, Bed Mobility, ROM Treatment/Plan Treatment Plan: Continue Plan of Care Treatment Plan: Bed Mobility, Education, Functional Activity Rizwan, Functional Strength, Group Therapy, Gait, Safety, Therapeutic Exercise, Transfers Treatment Duration: Feb 12, 2021 Frequency: At least 5 of 7 days/Wk (IRF) Estimated Hrs Per Day: 1.5 hours per day Patient and/or Family Agrees t: Yes Safety Risks/Education Patient Education: Gait Training, Transfer Techniques, Correct Positioning, Safety Issues Teaching Recipient: Patient Teaching Methods: Demonstration, Discussion Response to Teaching: Reinforcement Needed Time/GCodes Time In: 1000 Time Out: 1115 Total Billed Treatment Time: 75 Total Billed Treatment 1 visit GT 30' EX 45' MAC GONZALEZ PT Jan 29, 2021 11:08
--- NOTE | 2021-01-29 11:37 | Speech Therapy Daily Note ---
Speech Daily Progress Note Subjective Date Seen by Provider: Jan 29, 2021 Time Seen by Provider: 00:30 Patient was resting in his chair watching television. Patient appeared to be having a good day with significantly less impulsivity and agitation. Objective Patient completed higher level conversational tasks with 90% given minimal cues/redirections. Assessment Assessment Current Status: Good Progress Treatment Plan Continue Plan of Care Speech Short Term Goals Short Term Goals Short Term Goals 1) Patient will complete orientation tasks related to her daily needs at 60% or greater with minimal cues. 2) Patient will complete safety awareness tasks related to her daily needs at 60% or greater with minimal cues. Speech Snf Goals Dust Collector Treater Goals Patient will improve cognitive function for safety and orientation. Speech-Plan Patient/Family Goals Patient/Family Goals: Patient will discharge to home next week where he lives with his and disabled son. Treatment Plan Speech Therapy Treatment Plan: Continue Plan of Care Treatment Duration: Feb 06, 2021 Frequency: 4 times per week (Patient will receive skilled ST 4-5x per week) Estimated Hrs Per Day: .5 hour per day Rehab Potential: Fair Barriers to Learning: Patient's level of dementia Pt/Family Agrees to Plan: Yes Safety Risks/Education Teaching Recipient: Patient Teaching Methods: Demonstration, Discussion Response to Teaching: Verbalize Understanding, Return Demonstration Education Topics Provided: Continued safety and communication Time Speech Therapy Time In: 11:15 Speech Therapy Time Out: 11:45 Total Billed Time: 30 Billed Treatment Time 1, SAMIR Melgar Jan 29, 2021 11:37
[2021-01-29] MEDS: TAMSULOSIN 0.4 MG (FLOMAX) CAP PO SCH (17:23)
[2021-01-29 19:12] VITALS: BP 137/72
[2021-01-29] MEDS: MELATONIN 3 MG TABLET PO PRN (22:15)
[2021-01-29] MEDS: OLANZapine 5 MG (ZyPREXA) TAB PO SCH (22:15)
--- NOTE | 2021-01-30 05:56 | PM&R Progress Note ---
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 Busby will initiate a cystocope soon 01/25/2021: Patient improved overall Sleeping better Had urinary retention requiring in and out caths Confused but redirectable 01/24/2021: Pt very confused Had an in-and-out catheter at 6:00 this morning Voiding 300 at a time Zyprexa at night 01/23/21: Pt doing very well medically but he is very difficult to redirect Hgb 10 One on one sitter now Ativan and Xanax given last night Zyprexa helped im sleep until 3:00 In and out caths ordered by urology consults Review of Systems General: Fatigue, Malaise Neurological: Confusion Objective Exam Vital Signs Vital Signs Date Time Temp Pulse Resp B/P (MAP) Pulse Ox O2 Delivery O2 Flow Rate FiO2 01/30/21 19:51 37.2 75 16 154/77 (102) 98 Room Air Capillary Refill : General Appearance: No Apparent Distress, WD/WN, Chronically ill, Thin HEENT: PERRL/EOMI, Normal ENT Inspection, Pharynx Normal Neck: Full Range of Motion, Normal Inspection, Non Tender, Supple, Carotid Bruit Respiratory: Chest Non Tender, Lungs Clear, Normal Breath Sounds, No Accessory Muscle Use, No Respiratory Distress Cardiovascular: Regular Rate, Rhythm, No Edema, No Gallop, No JVD, No Murmur, Normal Peripheral Pulses Gastrointestinal: Normal Bowel Sounds, No Organomegaly, No Pulsatile Mass, Non Tender, Soft Back: Normal Inspection, No CVA Tenderness, No Vertebral Tenderness Extremity: Normal Capillary Refill, Normal Inspection, Normal Range of Motion, Non Tender, No Calf Tenderness, No Pedal Edema Neurologic/Psychiatric: Alert, No Motor/Sensory Deficits, Normal Mood/Affect, Abnormal Gait, Disoriented, Motor Weakness (Generalized weakness) Skin: Normal Color, Warm/Dry Lymphatic: No Adenopathy Results/Procedures Lab Patient resulted labs reviewed. FIM Transfers Therapy Code Descriptions/Definitions Functional [place] Measure: 0=Not Assessed/NA 4=Minimal Assistance 1=Total Assistance 5=Supervision or Setup 2=Maximal Assistance 6=Modified [place] 3=Moderate Assistance 7=Complete IndependenceSCALE: Activities may be completed with or without assistive devices. 7-Zasgrnlmoq-jlvltwx completes the activity by him/herself with no assistance from a helper. 5-Set-up or Clean-up Assistance-helper sets up or cleans up; patient completes activity. [place] assists only prior to or following the activity. 4-Supervision or Touching Assistance-helper provides verbal cues and/or touching/steadying and/or contact guard assistance as patient completes activity. Assistance may be provided throughout the activity or intermittently. 3-Partial/Moderate Assistance-helper does LESS THAN HALF the effort. [place] lifts, holds or supports trunk or limbs, but provides less than half the effort. 2-Substantial/Maximal Assistance-helper does MORE THAN HALF the effort. [place] lifts or holds trunk or limbs and provides more than half the effort. 2-Ycvllnapo-kocxxx does ALL the effort. Patient does none of the effort to complete the activity. Or, the assistance of 2 or more helpers is required for the patient to complete the activity. If activity was not attempted, code reason: 7-Patient Refused. 9-Not Applicable-not attempted and the patient did not perform the activity before the current illness, exacerbation or injury. 10-Not Attempted due to Environmental Limitations-(lack of equipment, weather restraints, etc.). 88-Not Attempted due to Medical Conditions or Safety Concerns. Roll Left to Right (QC): 6 Sit to Lying (QC): 6 Sit to Stand (QC): 4 Chair/Iky-uk-Lphfi Xfer(QC): 4 Car Transfer (QC): 4 Gait Training Does the Patient Walk?: Yes Distance: 300'x2, 150' Walk 10 feet (QC): 4 Walk 50 ft with 2 Turns(QC): 4 Walk 150 ft (QC): 4 Walking 10ft/uneven surface-QC: 4 Gait Persons Needed: 1 Gait Assistive Device: FWW Wheelchair Training Does the Pt Use a Wheelchair?: No Wheel 50 ft with 2 turns (QC): 9 Wheel 150 ft (QC): 9 Stair Training #of Steps: 1 1 Step (curb) (QC): 4 4 Steps (QC): 88 12 Steps (QC): 88 Balance Picking up an Object (QC): 4 ADL-Treatment Eating (QC): 6 (IND with breakfast) Oral Hygiene (QC): 4 (SBA) Shower/Bathe Self (QC): 4 (CGA in stand, pt able to wash/dry all parts.) Upper Body Dressing (QC): 5 (set up) Lower Body Dressing (QC): 4 (CGA) On/Off Footwear (QC): 5 Toileting Hygiene (QC): 4 (CGA, pt able to perform hygiene and clothing managment) Toilet Transfer (QC): 4 (CGA) Assessment/Plan Assessment and Plan Assess & Plan/Chief Complaint Assessment: Hemorrhagic stroke Encephalopathy Urinary retention Pulled Sahu catheter out bulb intact upon arrival on 01/22/2021 Hypertension Hyperlipidemia Plan: Aggressive rehabilitation Urology consult Antipsychotics for encephalopathy 01/23/21: Monitor confusion Zyprexa and anti-psychotics 01/24/2021: Supportive care Confusion management 01/25/2021: Urinary retention management Urology appreciated Confusion is improved 01/26/2021: Supportive care Sitter required Fall risk 01/27/21: Monitor closely Fall risk 01/28/2021: Monitor closely May need skilled care 01/29/2021: Supportive care Sitter 01/30/2021: Continue urinary retention management Urology is appreciated (1) Hemorrhagic stroke RIGOBERTO HODGES DO Jan 30, 2021 05:56
[2021-01-30] MEDS: BETHANECHOL 25 MG (URECHOLINE) TAB PO SCH ×4 (06:05→20:23)
[2021-01-30 07:30] VITALS: BP 132/82
[2021-01-30] MEDS: LOSARTAN 50 MG (COZAAR) TAB PO SCH ×2 (07:41→20:23)
[2021-01-30] MEDS: SENNA W/DOCUSATE (SENOKOT S) TABLET PO SCH ×2 (07:41→20:23)
[2021-01-30] MEDS: FAMOTIDINE 20 MG (PEPCID) TABLET PO SCH (07:41)
[2021-01-30] MEDS: DOCUSATE SODIUM 100 MG (COLACE) CAP PO SCH ×2 (07:41→20:22)
[2021-01-30] MEDS: amLODIPine 5 MG (NORVASC) TAB PO SCH (07:42)
[2021-01-30] MEDS: CLOPIDOGREL 75 MG (PLAVIX) TABLET PO SCH (07:42)
[2021-01-30] MEDS: LORATADINE (CLARITIN) 10 MG TAB PO SCH (07:42)
[2021-01-30] MEDS: doxAzosin 4 MG (CARDURA) TAB PO SCH (07:43)
[2021-01-30] MEDS: ISOSORBIDE MONONITRATE 30 MG (IMDUR) TAB PO SCH (07:43)
[2021-01-30] MEDS: polyethylene glycoL POWDER 17 GM (MIRALAX) PACK PO SCH ×2 (08:34→20:01)
--- NOTE | 2021-01-30 09:03 | Occupational Ther Daily Note ---
OT Current Status-Daily Note Subjective Pt in bed, sitter present. Pt agreeable to OT tx. Mental Status/Objective Patient Orientation: Person, Confused (slightly) ADL-Treatment Therapy Code Descriptions/Definitions Functional [place] Measure: 0=Not Assessed/NA 4=Minimal Assistance 1=Total Assistance 5=Supervision or Setup 2=Maximal Assistance 6=Modified [place] 3=Moderate Assistance 7=Complete IndependenceSCALE: Activities may be completed with or without assistive devices. 1-Dlzsvuwoez-iuacofy completes the activity by him/herself with no assistance from a helper. 5-Set-up or Clean-up Assistance-helper sets up or cleans up; patient completes activity. [place] assists only prior to or following the activity. 4-Supervision or Touching Assistance-helper provides verbal cues and/or touching/steadying and/or contact guard assistance as patient completes activity. Assistance may be provided throughout the activity or intermittently. 3-Partial/Moderate Assistance-helper does LESS THAN HALF the effort. [place] lifts, holds or supports trunk or limbs, but provides less than half the effort. 2-Substantial/Maximal Assistance-helper does MORE THAN HALF the effort. [place] lifts or holds trunk or limbs and provides more than half the effort. 6-Tnzwmemqg-dwxgpc does ALL the effort. Patient does none of the effort to complete the activity. Or, the assistance of 2 or more helpers is required for the patient to complete the activity. If activity was not attempted, code reason: 7-Patient Refused. 9-Not Applicable-not attempted and the patient did not perform the activity before the current illness, exacerbation or injury. 10-Not Attempted due to Environmental Limitations-(lack of equipment, weather restraints, etc.). 88-Not Attempted due to Medical Conditions or Safety Concerns. Oral Hygiene (QC): 4 (SBA standing at sink) Shower/Bathe Self (QC): 4 (SBA in stand, cues for safety) Upper Body Dressing (QC): 5 (set up) Lower Body Dressing (QC): 4 (SBA in stand for pant hike) On/Off Footwear: 5 Other Treatment Pt laying in bed, used FWW to perform functional mobility to bathroom and onto SC, CGA. Pt doffed clothes, then completed shower. OT cued pt to sit on bench at start of shower, he sat on bench while water temperature was adjusted, then stood up when he started washing. Pt required SBA throughout shower, no LOB noted. Pt dried off, then donned clothes. He required verbal cues for safety in order to remain seated on bench while threading LE clothing. Pt stood at sink to brush teeth, SBA for balance. He did not require verbal cues to complete oral care. Pt returned to recliner, donned footwear. Pt performed functional mobility to therapy gym, CGA. In order to increase BUE strength and activity tolerance, pt completed arm bike x20 mins, 25 Watt resistance. Pt participated in fishing themed trivia while completing arm bike. Pt then completed "Perfection" board game, matching shapes into the correct hole. Pt placed 16/19 correctly, requiring cue to place remaining 3 into the correct location. Pt then removed beads from moderate resistance theraputty, removing all beads without cues. Pt returned to room, [facility], min verbal cues for direction. Post tx, pt seated upright in recliner, call light in reach and all needs met. Education OT Patient Education: Correct positioning, Energy conservation, Exercise prog nora, Modified ADL techniques, Progress toward Goal/Update tx plan, Purpose of tx/functional activities, Rehab process Teaching Recipient: Patient Teaching Methods: Discussion Response to Teaching: Reinforcement Needed OT Short Term Goals Short Term Goals Time Frame: Feb 02, 2021 Oral hygiene: 5 Toileting hygiene: 4 Shower/bathe self: 4 Upper body dressin Lower body dressin OT Activity Manager Goals Halfway Goals Time Frame: Feb 20, 2021 Eating (QC): 6 Oral Hygiene (QC): 6 Toileting Hygiene (QC): 6 Shower/Bathe Self (QC): 6 Upper Body Dressing (QC): 6 Lower Body Dressing (QC): 6 On/Off Footwear (QC): 6 Additional Goals: 1-Demonstrate ADL Tasks, 2-Verbalize Understanding, 3- ImproveStrength/Rizwan 1=Demonstrate adherence to instructed precautions during ADL tasks. 2=Patient will verbalize/demonstrate understanding of assistive devices/modifications for ADL. 3=Patient will improve strength/tolerance for activity to enable patient to perform ADL's. OT Education/Plan Problem List/Assessment Assessment: Decreased Activ Tolerance, Decreased Safety Aware, Decreased UE Strength, Impaired Funct Balance, Impaired I ADL's, Impaired Self-Care Skills Discharge Recommendations Plan/Recommendations: Continue POC Treatment Plan/Plan of Care Patient would benefit from OT for education, treatment and training to promote independence in ADL's, mobility, safety and/or upper extremity function for ADL's. Plan of Care: ADL Retraining, Functional Mobility, Group Exercise/Act as Ind, UE Funct Exercise/Act Treatment Duration: Feb 20, 2021 Frequency: At least 5 of 7 days/Wk (IRF) Estimated Hrs Per Day: 1.5 hours per day Rehab Potential: Fair Time/GCodes Start Time: 08:00 Stop Time: 09:15 Total Time Billed (hr/min): 75 Billed Treatment Time 1, ADL 2 (30'), EX (20'), FA 2 (25') ELISEO TEJADA OT Jan 30, 2021 09:03
--- NOTE | 2021-01-30 09:35 | Speech Therapy Daily Note ---
Speech Daily Progress Note Subjective Date Seen by Provider: Jan 30, 2021 Time Seen by Provider: 00:30 The patient was sitting in his recliner following OT session where he received a shower this am. Objective Patient completed simple memory tasks of general information questions at 75% with 20% verbal cues and/or repetitions. Assessment Assessment Current Status: Fair Progress Treatment Plan Continue Plan of Care Speech Short Term Goals Short Term Goals Short Term Goals 1) Patient will complete orientation tasks related to her daily needs at 60% or greater with minimal cues. 2) Patient will complete safety awareness tasks related to her daily needs at 60% or greater with minimal cues. Speech Load Out Person Goals Residential Goals Patient will improve cognitive function for safety and orientation. Speech-Plan Patient/Family Goals Patient/Family Goals: Patient plans on returning to his home where he lives with his and disabled son. Treatment Plan Speech Therapy Treatment Plan: Continue Plan of Care Treatment Duration: Feb 06, 2021 Frequency: 4 times per week (Patient will receive skilled ST 4-5x per week) Estimated Hrs Per Day: .5 hour per day Rehab Potential: Fair Barriers to Learning: Patient's level of dementia, impulsivity Pt/Family Agrees to Plan: Yes Safety Risks/Education Teaching Recipient: Patient Teaching Methods: Demonstration, Discussion Response to Teaching: Verbalize Understanding, Return Demonstration Education Topics Provided: Continued safety, utilization of the call light Time Speech Therapy Time In: 09:30 Speech Therapy Time Out: 10:00 Total Billed Time: 30 Billed Treatment Time 1, SAMIR Melgar Jan 30, 2021 09:35
--- NOTE | 2021-01-30 10:55 | Physical Therapy Daily Note ---
PT Daily Note-Current Subjective Pt up in recliner with live sitter present. Pt agreeable to PT. Pt denies pain. Mental Status Patient Orientation: Person, Place, Situation Transfers SCALE: Activities may be completed with or without assistive devices. 8-Atyxhmkgan-pgxfsca completes the activity by him/herself with no assistance from a helper. 5-Set-up or Clean-up Assistance-helper sets up or cleans up; patient completes activity. [place] assists only prior to or following the activity. 4-Supervision or Touching Assistance-helper provides verbal cues and/or touching/steadying and/or contact guard assistance as patient completes activity. Assistance may be provided throughout the activity or intermittently. 3-Partial/Moderate Assistance-helper does LESS THAN HALF the effort. [place] lifts, holds or supports trunk or limbs, but provides less than half the effort. 2-Substantial/Maximal Assistance-helper does MORE THAN HALF the effort. [place] lifts or holds trunk or limbs and provides more than half the effort. 1-Vhyohbdmc-jtacfs does ALL the effort. Patient does none of the effort to complete the activity. Or, the assistance of 2 or more helpers is required for the patient to complete the activity. If activity was not attempted, code reason: 7-Patient Refused. 9-Not Applicable-not attempted and the patient did not perform the activity before the current illness, exacerbation or injury. 10-Not Attempted due to Environmental Limitations-(lack of equipment, weather restraints, etc.). 88-Not Attempted due to Medical Conditions or Safety Concerns. mod (I) with transfers from [facility] Gait Training Gait Assistive Device: FWW Pt amb with FWW and CGA 2 x 450ft, SBA-CGA Stair Training Stair Training: Handrails/: 2 handrails #of Steps: 12 Practice stairs in normal fashion using HR;s. Pt allowed to ascend stairs without instruction and pt went up advancing FWW in front of him without any support. The FWW was returned to the floor and pt was instructed to use HR's for balance. Pt did not have LOB but was demonstrating poor safety practice ascending the steps. Exercises Standing: Step-ups Standing Reps: 10 NuStep Minutes: 20 NuStep Workload: 4 Treatments Obstacle course in //bars including 6" step and Airex pad: traveling up/over step and 360deg turns on Airex, static balance 6 x 20 sec on Airex pad, retro ambulation up/over 6" step and sit to stand transfers end of obstacle course. Assessment Current Status: Good Progress Balance and functional mobility improving steadily. Pt balance is precarious at times with balance challenges but no varun LOB. PT Short Term Goals Short Term Goals Time Frame: Jan 29, 2021 Roll Left & Right: 6 Sit to lyin Lying to sitting on side of be: 6 Sit to stand: 4 (SBA) Chair/mtk-yf-xdsuh transfer: 4 (SBA) Walk 10 feet: 4 (SA) Walk 50 feet with two turns: 4 (SBA) PT Bridge Welder Goals Longterm Goals PT Bridge Welder Goals Time Frame: Feb 12, 2021 Roll Left & Right (QC): 6 Sit to Lying (QC): 6 Lying-Sitting on Side/Bed(QC): 6 Sit to Stand (QC): 5 Chair/Rsg-yn-Otfef Xfer(QC): 5 Toilet Transfer (QC): 5 Car Transfer (QC): 5 Does the Patient Walk: Yes Walk 10 feet (QC): 5 Walk 50ft with 2 Turns (QC): 5 Walk 150 ft (QC): 5 Walking 10ft on Uneven Surface: 5 1 Step (curb) (QC): 4 4 Steps (QC): 4 12 Steps (QC): 88 Picking up an Object (QC): 4 Wheel 50 feet with 2 turns (QC: 9 Wheel 150 feet: 9 PT Plan Treatment/Plan Treatment Plan: Continue Plan of Care Treatment Plan: Bed Mobility, Education, Functional Activity Rizwan, Functional Strength, Group Therapy, Gait, Safety, Therapeutic Exercise, Transfers Treatment Duration: Feb 12, 2021 Frequency: At least 5 of 7 days/Wk (IRF) Estimated Hrs Per Day: 1.5 hours per day Patient and/or Family Agrees t: Yes Time/GCodes Time In: 1000 Time Out: 1115 Total Billed Treatment Time: 75 Total Billed Treatment 1, gait 30', Ex 30', FA 15' DILIP HOLLOWAY CPTA Jan 30, 2021 10:55
[2021-01-30] MEDS: TAMSULOSIN 0.4 MG (FLOMAX) CAP PO SCH (17:19)
[2021-01-30 19:51] VITALS: BP 154/77
[2021-01-30] MEDS: MELATONIN 3 MG TABLET PO PRN (20:22)
[2021-01-30] MEDS: OLANZapine 5 MG (ZyPREXA) TAB PO SCH (20:22)
[2021-01-30] MEDS: ALPRAZolam 0.25 MG (XANAX) TAB PO PRN (20:23)
--- NOTE | 2021-01-31 06:00 | PM&R Progress Note ---
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 Busby will initiate a cystocope soon 01/25/2021: Patient improved overall Sleeping better Had urinary retention requiring in and out caths Confused but redirectable 01/24/2021: Pt very confused Had an in-and-out catheter at 6:00 this morning Voiding 300 at a time Zyprexa at night 01/23/21: Pt doing very well medically but he is very difficult to redirect Hgb 10 One on one sitter now Ativan and Xanax given last night Zyprexa helped im sleep until 3:00 In and out caths ordered by urology consults Review of Systems General: Fatigue, Malaise Objective Exam Vital Signs Vital Signs Date Time Temp Pulse Resp B/P (MAP) Pulse Ox O2 Delivery O2 Flow Rate FiO2 01/31/21 09:35 Room Air 01/31/21 07:26 36.3 86 18 130/70 (90) 96 Capillary Refill : General Appearance: No Apparent Distress, WD/WN, Chronically ill, Thin HEENT: PERRL/EOMI, Normal ENT Inspection, Pharynx Normal Neck: Full Range of Motion, Normal Inspection, Non Tender, Supple, Carotid Bruit Respiratory: Chest Non Tender, Lungs Clear, Normal Breath Sounds, No Accessory Muscle Use, No Respiratory Distress Cardiovascular: Regular Rate, Rhythm, No Edema, No Gallop, No JVD, No Murmur, Normal Peripheral Pulses Gastrointestinal: Normal Bowel Sounds, No Organomegaly, No Pulsatile Mass, Non Tender, Soft Back: Normal Inspection, No CVA Tenderness, No Vertebral Tenderness Extremity: Normal Capillary Refill, Normal Inspection, Normal Range of Motion, Non Tender, No Calf Tenderness, No Pedal Edema Neurologic/Psychiatric: Alert, No Motor/Sensory Deficits, Normal Mood/Affect, Abnormal Gait, Disoriented, Motor Weakness Skin: Normal Color, Warm/Dry Lymphatic: No Adenopathy Results/Procedures Lab Patient resulted labs reviewed. FIM Transfers Therapy Code Descriptions/Definitions Functional [place] Measure: 0=Not Assessed/NA 4=Minimal Assistance 1=Total Assistance 5=Supervision or Setup 2=Maximal Assistance 6=Modified [place] 3=Moderate Assistance 7=Complete IndependenceSCALE: Activities may be completed with or without assistive devices. 2-Wexzvyekgm-rsjqidw completes the activity by him/herself with no assistance from a helper. 5-Set-up or Clean-up Assistance-helper sets up or cleans up; patient completes activity. [place] assists only prior to or following the activity. 4-Supervision or Touching Assistance-helper provides verbal cues and/or touching /steadying and/or contact guard assistance as patient completes activity. Assistance may be provided throughout the activity or intermittently. 3-Partial/Moderate Assistance-helper does LESS THAN HALF the effort. [place] lifts, holds or supports trunk or limbs, but provides less than half the effort. 2-Substantial/Maximal Assistance-helper does MORE THAN HALF the effort. [place] lifts or holds trunk or limbs and provides more than half the effort. 8-Kaiynfqmd-nxsfzb does ALL the effort. Patient does none of the effort to complete the activity. Or, the assistance of 2 or more helpers is required for the patient to complete the activity. If activity was not attempted, code reason: 7-Patient Refused. 9-Not Applicable-not attempted and the patient did not perform the activity before the current illness, exacerbation or injury. 10-Not Attempted due to Environmental Limitations-(lack of equipment, weather restraints, etc.). 88-Not Attempted due to Medical Conditions or Safety Concerns. Roll Left to Right (QC): 6 Sit to Lying (QC): 6 Sit to Stand (QC): 4 Chair/Van-xw-Zfbqp Xfer(QC): 4 Car Transfer (QC): 4 Gait Training Does the Patient Walk?: Yes Distance: 300'x2, 150' Walk 10 feet (QC): 4 Walk 50 ft with 2 Turns(QC): 4 Walk 150 ft (QC): 4 Walking 10ft/uneven surface-QC: 4 Gait Persons Needed: 1 Gait Assistive Device: FWW Wheelchair Training Does the Pt Use a Wheelchair?: No Wheel 50 ft with 2 turns (QC): 9 Wheel 150 ft (QC): 9 Stair Training Stair Training: Handrails/: 2 handrails #of Steps: 12 1 Step (curb) (QC): 4 4 Steps (QC): 88 12 Steps (QC): 88 Balance Picking up an Object (QC): 4 ADL-Treatment Eating (QC): 6 (IND with breakfast) Oral Hygiene (QC): 4 (SBA standing at sink) Shower/Bathe Self (QC): 4 (SBA in stand, cues for safety) Upper Body Dressing (QC): 5 (set up) Lower Body Dressing (QC): 4 (SBA in stand for pant hike) On/Off Footwear (QC): 5 Toileting Hygiene (QC): 4 (CGA, pt able to perform hygiene and clothing managment) Toilet Transfer (QC): 4 (CGA) Assessment/Plan Assessment and Plan Assess & Plan/Chief Complaint Assessment: Hemorrhagic stroke Encephalopathy Urinary retention Pulled Sahu catheter out bulb intact upon arrival on 01/22/2021 Hypertension Hyperlipidemia Plan: Aggressive rehabilitation Urology consult Antipsychotics for encephalopathy 01/23/21: Monitor confusion Zyprexa and anti-psychotics 01/24/2021: Supportive care Confusion management 01/25/2021: Urinary retention management Urology appreciated Confusion is improved 01/26/2021: Supportive care Sitter required Fall risk 01/27/21: Monitor closely Fall risk 01/28/2021: Monitor closely May need skilled care 01/29/2021: Supportive care Sitter 01/30/2021: Continue urinary retention management Urology is appreciated 01/31/2021: In and out cath Supportive care (1) Hemorrhagic stroke RIGOBERTO HODGES DO Jan 31, 2021 06:00
[2021-01-31] MEDS: BETHANECHOL 25 MG (URECHOLINE) TAB PO SCH ×4 (06:41→20:05)
[2021-01-31 07:26] VITALS: BP 130/70
[2021-01-31] MEDS: amLODIPine 5 MG (NORVASC) TAB PO SCH (09:20)
[2021-01-31] MEDS: LOSARTAN 50 MG (COZAAR) TAB PO SCH ×2 (09:20→20:05)
[2021-01-31] MEDS: doxAzosin 4 MG (CARDURA) TAB PO SCH (09:20)
[2021-01-31] MEDS: LORATADINE (CLARITIN) 10 MG TAB PO SCH (09:20)
[2021-01-31] MEDS: FAMOTIDINE 20 MG (PEPCID) TABLET PO SCH (09:20)
[2021-01-31] MEDS: SENNA W/DOCUSATE (SENOKOT S) TABLET PO SCH ×2 (09:20→20:03)
[2021-01-31] MEDS: CLOPIDOGREL 75 MG (PLAVIX) TABLET PO SCH (09:20)
[2021-01-31] MEDS: ISOSORBIDE MONONITRATE 30 MG (IMDUR) TAB PO SCH (09:20)
[2021-01-31] MEDS: DOCUSATE SODIUM 100 MG (COLACE) CAP PO SCH ×2 (09:20→20:02)
[2021-01-31] MEDS: polyethylene glycoL POWDER 17 GM (MIRALAX) PACK PO SCH ×2 (09:30→20:02)
--- NOTE | 2021-01-31 10:05 | Physical Therapy Daily Note ---
PT Daily Note-Current Subjective Pt. up with nursing staff in general area, agrees to PT, "whatever you want to do." Transfers SCALE: Activities may be completed with or without assistive devices. 5-Ngrnwzgnpl-xxznaxn completes the activity by him/herself with no assistance from a helper. 5-Set-up or Clean-up Assistance-helper sets up or cleans up; patient completes activity. [place] assists only prior to or following the activity. 4-Supervision or Touching Assistance-helper provides verbal cues and/or touching/steadying and/or contact guard assistance as patient completes activity. Assistance may be provided throughout the activity or intermittently. 3-Partial/Moderate Assistance-helper does LESS THAN HALF the effort. [place] lifts, holds or supports trunk or limbs, but provides less than half the effort. 2-Substantial/Maximal Assistance-helper does MORE THAN HALF the effort. [place] lifts or holds trunk or limbs and provides more than half the effort. 1-Wdxhnvayd-wupuxm does ALL the effort. Patient does none of the effort to complete the activity. Or, the assistance of 2 or more helpers is required for the patient to complete the activity. If activity was not attempted, code reason: 7-Patient Refused. 9-Not Applicable-not attempted and the patient did not perform the activity before the current illness, exacerbation or injury. 10-Not Attempted due to Environmental Limitations-(lack of equipment, weather restraints, etc.). 88-Not Attempted due to Medical Conditions or Safety Concerns. Sit to Stand (QC): 4 Gait Training Distance: 300 ft Walk 150 ft (QC): 4 Gait Assistive Device: FWW occasional cues to stay close to walker Exercises Seated Therapy Exercises: Ankle pumps, Long arc quads, Hip flexion, Hip abd/add Seated Reps: 20 NuStep Minutes: 10 NuStep Workload: 5 Treatments LE exercises, gait training Assessment Current Status: Excellent Progress Pt. is steady with gait but does lean on walker and needs 1-2 cues to stay close to walker. Pt. is progressing very well with therapy. Returned to room post session with call light and all needs met, chair alarm set. PT Short Term Goals Short Term Goals Time Frame: Jan 29, 2021 Roll Left & Right: 6 Sit to lyin Lying to sitting on side of be: 6 Sit to stand: 4 (SBA) Chair/ikf-ai-zkcrq transfer: 4 (SBA) Walk 10 feet: 4 (SA) Walk 50 feet with two turns: 4 (SBA) PT Aviation Neuropsychologist Goals Longterm Goals PT Longterm Goals Time Frame: Feb 12, 2021 Roll Left & Right (QC): 6 Sit to Lying (QC): 6 Lying-Sitting on Side/Bed(QC): 6 Sit to Stand (QC): 5 Chair/Vqj-re-Eanwy Xfer(QC): 5 Toilet Transfer (QC): 5 Car Transfer (QC): 5 Does the Patient Walk: Yes Walk 10 feet (QC): 5 Walk 50ft with 2 Turns (QC): 5 Walk 150 ft (QC): 5 Walking 10ft on Uneven Surface: 5 1 Step (curb) (QC): 4 4 Steps (QC): 4 12 Steps (QC): 88 Picking up an Object (QC): 4 Wheel 50 feet with 2 turns (QC: 9 Wheel 150 feet: 9 PT Plan Treatment/Plan Treatment Plan: Continue Plan of Care Treatment Plan: Bed Mobility, Education, Functional Activity Rizwan, Functional Strength, Group Therapy, Gait, Safety, Therapeutic Exercise, Transfers Treatment Duration: Feb 12, 2021 Frequency: At least 5 of 7 days/Wk (IRF) Estimated Hrs Per Day: 1.5 hours per day Patient and/or Family Agrees t: Yes Time/GCodes Time In: 854 Time Out: 919 Total Billed Treatment Time: 25 Total Billed Treatment 1, GT 10', Ex 15' PRINCESS CHAVEZ PT Jan 31, 2021 10:05
[2021-01-31] MEDS: TAMSULOSIN 0.4 MG (FLOMAX) CAP PO SCH (17:07)
[2021-01-31 20:00] VITALS: BP 127/68
[2021-01-31] MEDS: MELATONIN 3 MG TABLET PO PRN (20:05)
[2021-01-31] MEDS: ALPRAZolam 0.25 MG (XANAX) TAB PO PRN (20:05)
[2021-01-31] MEDS: OLANZapine 5 MG (ZyPREXA) TAB PO SCH (20:05)
--- NOTE | 2021-02-01 06:10 | PM&R Progress Note ---
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 Busby will initiate a cystocope soon 01/25/2021: Patient improved overall Sleeping better Had urinary retention requiring in and out caths Confused but redirectable 01/24/2021: Pt very confused Had an in-and-out catheter at 6:00 this morning Voiding 300 at a time Zyprexa at night 01/23/21: Pt doing very well medically but he is very difficult to redirect Hgb 10 One on one sitter now Ativan and Xanax given last night Zyprexa helped im sleep until 3:00 In and out caths ordered by urology consults Review of Systems General: Fatigue, Malaise Genitourinary: Retention Neurological: Confusion Objective Exam Vital Signs Vital Signs Date Time Temp Pulse Resp B/P (MAP) Pulse Ox O2 Delivery O2 Flow Rate FiO2 02/01/21 20:30 Room Air 02/01/21 20:00 37.2 75 16 121/66 (84) 97 Capillary Refill : General Appearance: No Apparent Distress, WD/WN, Chronically ill, Thin HEENT: PERRL/EOMI, Normal ENT Inspection, Pharynx Normal Neck: Full Range of Motion, Normal Inspection, Non Tender, Supple, Carotid Bruit Respiratory: Chest Non Tender, Lungs Clear, Normal Breath Sounds, No Accessory Muscle Use, No Respiratory Distress Cardiovascular: Regular Rate, Rhythm, No Edema, No Gallop, No JVD, No Murmur, Normal Peripheral Pulses Gastrointestinal: Normal Bowel Sounds, No Organomegaly, No Pulsatile Mass, Non Tender, Soft Back: Normal Inspection, No CVA Tenderness, No Vertebral Tenderness Extremity: Normal Capillary Refill, Normal Inspection, Normal Range of Motion, Non Tender, No Calf Tenderness, No Pedal Edema Neurologic/Psychiatric: Alert, No Motor/Sensory Deficits, Normal Mood/Affect, Abnormal Gait, Disoriented, Motor Weakness Skin: Normal Color, Warm/Dry Lymphatic: No Adenopathy Results/Procedures Lab Patient resulted labs reviewed. FIM Transfers Therapy Code Descriptions/Definitions Functional [place] Measure: 0=Not Assessed/NA 4=Minimal Assistance 1=Total Assistance 5=Supervision or Setup 2=Maximal Assistance 6=Modified [place] 3=Moderate Assistance 7=Complete IndependenceSCALE: Activities may be completed with or without assistive devices. 0-Jmeoqybytg-sbayxai completes the activity by him/herself with no assistance from a helper. 5-Set-up or Clean-up Assistance-helper sets up or cleans up; patient completes activity. [place] assists only prior to or following the activity. 4-Supervision or Touching Assistance-helper provides verbal cues and/or touching/steadying and/or contact guard assistance as patient completes activity. Assistance may be provided throughout the activity or intermittently. 3-Partial/Moderate Assistance-helper does LESS THAN HALF the effort. [place] lifts, holds or supports trunk or limbs, but provides less than half the effort. 2-Substantial/Maximal Assistance-helper does MORE THAN HALF the effort. [place] lifts or holds trunk or limbs and provides more than half the effort. 3-Mjcveqxpx-wnzvlf does ALL the effort. Patient does none of the effort to complete the activity. Or, the assistance of 2 or more helpers is required for the patient to complete the activity. If activity was not attempted, code reason: 7-Patient Refused. 9-Not Applicable-not attempted and the patient did not perform the activity before the current illness, exacerbation or injury. 10-Not Attempted due to Environmental Limitations-(lack of equipment, weather restraints, etc.). 88-Not Attempted due to Medical Conditions or Safety Concerns. Roll Left to Right (QC): 6 Sit to Lying (QC): 6 Sit to Stand (QC): 4 Chair/Qck-ni-Lhnrv Xfer(QC): 4 Car Transfer (QC): 4 Gait Training Does the Patient Walk?: Yes Distance: 300 ft Walk 10 feet (QC): 4 Walk 50 ft with 2 Turns(QC): 4 Walk 150 ft (QC): 4 Walking 10ft/uneven surface-QC: 4 Gait Persons Needed: 1 Gait Assistive Device: FWW Wheelchair Training Does the Pt Use a Wheelchair?: No Wheel 50 ft with 2 turns (QC): 9 Wheel 150 ft (QC): 9 Stair Training Stair Training: Handrails/: 2 handrails #of Steps: 12 1 Step (curb) (QC): 4 4 Steps (QC): 88 12 Steps (QC): 88 Balance Picking up an Object (QC): 4 ADL-Treatment Eating (QC): 6 (IND with breakfast) Oral Hygiene (QC): 4 (SBA standing at sink) Shower/Bathe Self (QC): 4 (SBA in stand, cues for safety) Upper Body Dressing (QC): 5 (set up) Lower Body Dressing (QC): 4 (SBA in stand for pant hike) On/Off Footwear (QC): 5 Toileting Hygiene (QC): 4 (CGA, pt able to perform hygiene and clothing managment) Toilet Transfer (QC): 4 (CGA) Assessment/Plan Assessment and Plan Assess & Plan/Chief Complaint Assessment: Hemorrhagic stroke Encephalopathy Urinary retention Pulled Sahu catheter out bulb intact upon arrival on 01/22/2021 Hypertension Hyperlipidemia Plan: Aggressive rehabilitation Urology consult Antipsychotics for encephalopathy 01/23/21: Monitor confusion Zyprexa and anti-psychotics 01/24/2021: Supportive care Confusion management 01/25/2021: Urinary retention management Urology appreciated Confusion is improved 01/26/2021: Supportive care Sitter required Fall risk 01/27/21: Monitor closely Fall risk 01/28/2021: Monitor closely May need skilled care 01/29/2021: Supportive care Sitter 01/30/2021: Continue urinary retention management Urology is appreciated 01/31/2021: In and out cath Supportive care 02/01/2021: Urinary retention management Monitor closely (1) Hemorrhagic stroke RIGOBERTO HODGES DO Feb 01, 2021 06:10
[2021-02-01] MEDS: BETHANECHOL 25 MG (URECHOLINE) TAB PO SCH ×4 (06:48→20:18)
[2021-02-01 09:22] VITALS: BP 154/78
[2021-02-01] MEDS: ISOSORBIDE MONONITRATE 30 MG (IMDUR) TAB PO SCH (09:24)
[2021-02-01] MEDS: doxAzosin 4 MG (CARDURA) TAB PO SCH (09:24)
[2021-02-01] MEDS: CLOPIDOGREL 75 MG (PLAVIX) TABLET PO SCH (09:24)
[2021-02-01] MEDS: LORATADINE (CLARITIN) 10 MG TAB PO SCH (09:24)
[2021-02-01] MEDS: FAMOTIDINE 20 MG (PEPCID) TABLET PO SCH (09:24)
[2021-02-01] MEDS: LOSARTAN 50 MG (COZAAR) TAB PO SCH ×2 (09:24→20:18)
[2021-02-01] MEDS: amLODIPine 5 MG (NORVASC) TAB PO SCH (09:24)
[2021-02-01] MEDS: DOCUSATE SODIUM 100 MG (COLACE) CAP PO SCH ×2 (09:26→20:16)
[2021-02-01] MEDS: polyethylene glycoL POWDER 17 GM (MIRALAX) PACK PO SCH ×2 (09:27→20:16)
[2021-02-01] MEDS: SENNA W/DOCUSATE (SENOKOT S) TABLET PO SCH ×2 (09:27→20:16)
[2021-02-01] MEDS: TAMSULOSIN 0.4 MG (FLOMAX) CAP PO SCH (17:04)
[2021-02-01 20:00] VITALS: BP 121/66
[2021-02-01] MEDS: OLANZapine 5 MG (ZyPREXA) TAB PO SCH (20:18)
[2021-02-01] MEDS: MELATONIN 3 MG TABLET PO PRN (20:18)
[2021-02-01] MEDS: ALPRAZolam 0.25 MG (XANAX) TAB PO PRN (20:18)
[2021-02-02] MEDS: BETHANECHOL 25 MG (URECHOLINE) TAB PO SCH ×4 (06:33→21:51)
[2021-02-02 07:08] LABS: BASOPHILS # (AUTO) 0.1 10^3/uL (0.0-0.1); BASOPHILS % (AUTO) 1 % (0-10); EOSINOPHILS # (AUTO) 0.4 10^3/uL (0.0-0.3); EOSINOPHILS % (AUTO) 5 % (0-10); HEMATOCRIT 30 % (40-54); LYMPHOCYTES % (AUTO) 26 % (12-44); MEAN CORPUSCULAR HEMOGLOBIN 30 pg (25-34); MEAN CORPUSCULAR HGB CONC 34 g/dL (32-36); MEAN CORPUSCULAR VOLUME 90 fL (80-99); MEAN PLATELET VOLUME 10.2 fL (9.0-12.2); MONOCYTES # (AUTO) 0.7 10^3/uL (0.0-1.0); MONOCYTES % (AUTO) 9 % (0-12); NEUTROPHILS # (AUTO) 4.4 10^3/uL (1.8-7.8); NEUTROPHILS % (AUTO) 58 % (42-75); PLATELET COUNT 211 10^3/uL (130-400); WHITE BLOOD COUNT 7.6 10^3/uL (4.3-11.0)
[2021-02-02 07:20] VITALS: BP 157/76
[2021-02-02 07:21] LABS: ALBUMIN 3.6 GM/DL (3.2-4.5)
[2021-02-02 07:22] LABS: CALCIUM 9.1 MG/DL (8.5-10.1)
[2021-02-02 07:23] LABS: TOTAL PROTEIN 6.5 GM/DL (6.4-8.2)
[2021-02-02 07:25] LABS: BILIRUBIN,TOTAL 0.5 MG/DL (0.1-1.0)
[2021-02-02 07:27] LABS: CREATININE SERUM 1.34 MG/DL (0.60-1.30)
[2021-02-02] MEDS: LORATADINE (CLARITIN) 10 MG TAB PO SCH (08:12)
[2021-02-02] MEDS: ISOSORBIDE MONONITRATE 30 MG (IMDUR) TAB PO SCH (08:12)
[2021-02-02] MEDS: doxAzosin 4 MG (CARDURA) TAB PO SCH (08:12)
[2021-02-02] MEDS: DOCUSATE SODIUM 100 MG (COLACE) CAP PO SCH ×2 (08:12→21:51)
[2021-02-02] MEDS: LOSARTAN 50 MG (COZAAR) TAB PO SCH ×2 (08:12→21:50)
[2021-02-02] MEDS: amLODIPine 5 MG (NORVASC) TAB PO SCH (08:12)
[2021-02-02] MEDS: FAMOTIDINE 20 MG (PEPCID) TABLET PO SCH (08:12)
[2021-02-02] MEDS: CLOPIDOGREL 75 MG (PLAVIX) TABLET PO SCH (08:12)
[2021-02-02] MEDS: SENNA W/DOCUSATE (SENOKOT S) TABLET PO SCH ×2 (08:12→21:51)
[2021-02-02] MEDS: polyethylene glycoL POWDER 17 GM (MIRALAX) PACK PO SCH ×2 (08:21→21:50)
--- NOTE | 2021-02-02 08:36 | Occupational Ther Daily Note ---
OT Current Status-Daily Note Subjective Pt at EOB with sitter present. Agreeable to OT Tx with focus on ADLs. Mental Status/Objective Patient Orientation: Person, Confused (slightly) ADL-Treatment Therapy Code Descriptions/Definitions Functional [place] Measure: 0=Not Assessed/NA 4=Minimal Assistance 1=Total Assistance 5=Supervision or Setup 2=Maximal Assistance 6=Modified [place] 3=Moderate Assistance 7=Complete IndependenceSCALE: Activities may be completed with or without assistive devices. 7-Orikztycmi-fmevxbl completes the activity by him/herself with no assistance fr om a helper. 5-Set-up or Clean-up Assistance-helper sets up or cleans up; patient completes activity. [place] assists only prior to or following the activity. 4-Supervision or Touching Assistance-helper provides verbal cues and/or touching/steadying and/or contact guard assistance as patient completes activity. Assistance may be provided throughout the activity or intermittently. 3-Partial/Moderate Assistance-helper does LESS THAN HALF the effort. [place] lifts, holds or supports trunk or limbs, but provides less than half the effort. 2-Substantial/Maximal Assistance-helper does MORE THAN HALF the effort. [place] lifts or holds trunk or limbs and provides more than half the effort. 6-Ueajxihxq-asirgg does ALL the effort. Patient does none of the effort to complete the activity. Or, the assistance of 2 or more helpers is required for the patient to complete the activity. If activity was not attempted, code reason: 7-Patient Refused. 9-Not Applicable-not attempted and the patient did not perform the activity before the current illness, exacerbation or injury. 10-Not Attempted due to Environmental Limitations-(lack of equipment, weather restraints, etc.). 88-Not Attempted due to Medical Conditions or Safety Concerns. Eating (QC): 6 Oral Hygiene (QC): 4 (SBA standing at sink) Shower/Bathe Self (QC): 4 (SBA, pt able to wash/dry all parts.) Upper Body Dressing (QC): 5 (set up) Lower Body Dressing (QC): 4 (CGA in pant hike) On/Off Footwear: 5 (set up of socks and shoes) Toileting Hygiene (QC): 4 (CGA in stand at toilet to urinate) Other Treatment Pt at EOB with sitter, performed functional mobility to bathroom using FWW, standing at toilet to urinate, CGA, then transferred to NE. Pt doffed clothes, completed shower with SBA. Pt then donned clothing, CGA in stand for pant hike. Pt stood at sink to brush teeth, SBA for balance. He then transferred to recliner using FWW, CGA. After seated rest break, pt used FWW to perform functional mobility to therapy gym, CGA with moderate cues for direction. In order to increase BUE strength and activity tolerance, pt completed arm bike x20 mins, 30 Watt resistance. Pt then removed beads from moderate resistance theraputty in order to increase fine motor strength and coordination. Pt able to remove all beads without cues. Pt performed functional mobility around ARU common area, CGA. Pt returned to room, cues to locate room, transferring to bed. Post tx, pt laying in bed, call light in reach and all needs met, bed alarm on. Education OT Patient Education: Correct positioning, Exercise program, Modified ADL techniques, Progress toward Goal/Update tx plan, Purpose of tx/functional activities, Rehab process Teaching Recipient: Patient Teaching Methods: Discussion Response to Teaching: Verbalize Understanding OT Short Term Goals Short Term Goals Time Frame: Feb 02, 2021 Oral hygiene: 5 Toileting hygiene: 4 Shower/bathe self: 4 Upper body dressin Lower body dressin OT Alf Goals Alf Goals Time Frame: Feb 20, 2021 Eating (QC): 6 Oral Hygiene (QC): 6 Toileting Hygiene (QC): 6 Shower/Bathe Self (QC): 6 Upper Body Dressing (QC): 6 Lower Body Dressing (QC): 6 On/Off Footwear (QC): 6 Additional Goals: 1-Demonstrate ADL Tasks, 2-Verbalize Understanding, 3- ImproveStrength/[place] 1=Demonstrate adherence to instructed precautions during ADL tasks. 2=Patient will verbalize/demonstrate understanding of assistive devices/modifications for ADL. 3=Patient will improve strength/tolerance for activity to enable patient to perform ADL's. OT Education/Plan Problem List/Assessment Assessment: Decreased Activ Tolerance, Decreased Safety Aware, Decreased UE Strength, Impaired Cognition, Impaired Funct Balance, Impaired I ADL's, Impaired Self-Care Skills Discharge Recommendations Plan/Recommendations: Continue POC Treatment Plan/Plan of Care Patient would benefit from OT for education, treatment and training to promote independence in ADL's, mobility, safety and/or upper extremity function for ADL's. Plan of Care: ADL Retraining, Functional Mobility, Group Exercise/Act as Ind, UE Funct Exercise/Act Treatment Duration: Feb 20, 2021 Frequency: At least 5 of 7 days/Wk (IRF) Estimated Hrs Per Day: 1.5 hours per day Rehab Potential: Fair Time/GCodes Start Time: 08:00 Stop Time: 09:15 Total Time Billed (hr/min): 75 Billed Treatment Time 1, ADL 3 (40'), EX (20'), FA (15') ELISEO TEJADA OT Feb 02, 2021 08:36
--- NOTE | 2021-02-02 09:37 | Speech Therapy Daily Note ---
Speech Daily Progress Note Subjective Date Seen by Provider: Feb 02, 2021 Time Seen by Provider: 00:30 Patient was laying in his bed resting following his OT session with a shower. Sitter was present when I entered his room. Objective Patient completed general information questions with 75% given min to mod verbal cues. Assessment Assessment Current Status: Fair Progress Treatment Plan Continue Plan of Care Speech Short Term Goals Short Term Goals Short Term Goals 1) Patient will complete orientation tasks related to her daily needs at 60% or greater with minimal cues. 2) Patient will complete safety awareness tasks related to her daily needs at 60% or greater with minimal cues. Speech Position Description Manager Goals Position Description Manager Goals Patient will improve cognitive function for safety and orientation. Speech-Plan Patient/Family Goals Patient/Family Goals: Patient is scheduled to return to his home on 02/05 where he lives with his and disabled son. Treatment Plan Speech Therapy Treatment Plan: Continue Plan of Care Treatment Duration: Feb 06, 2021 Frequency: 4 times per week (Patient will receive skilled ST 4-5x per week) Estimated Hrs Per Day: .5 hour per day Rehab Potential: Fair Barriers to Learning: Patient's moderate dementia Pt/Family Agrees to Plan: Yes Safety Risks/Education Teaching Recipient: Patient Teaching Methods: Demonstration, Discussion Response to Teaching: Verbalize Understanding, Return Demonstration Education Topics Provided: Continued safety Time Speech Therapy Time In: 09:30 Speech Therapy Time Out: 10:00 Total Billed Time: 30 Billed Treatment Time 1, SAMIR Melgar Feb 02, 2021 09:37
--- NOTE | 2021-02-02 09:53 | PM&R Progress Note ---
Subjective HPI/CC On Admission Date Seen by Provider: Feb 02, 2021 Time Seen by Provider: 09:30 Subjective/Events-last exam 02/02/2021: Pt has not required a catheter for in-and-out caths He voided 400 CCs S[address] is in place Incontinent at times 02/01/2021: Patient sleeping very soundly Sitter still at bedside Monitor closely 01/31/2021: Patient sleeping soundly No falls Check meds and labs Confusion persist 01/30/2021: Still needs sitter Impulsive Fall risk Check meds and labs 01/29/2021: Pt is more calm but still requiring a sitter No other issues No pain Eating a drinking well 01/28/2021: Pt doing a lot better More lucid [facility] 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 Busby will initiate a cystocope soon 01/25/2021: Patient improved overall Sleeping better Had urinary retention requiring in and out caths Confused but redirectable 01/24/2021: Pt very confused Had an in-and-out catheter at 6:00 this morning Voiding 300 at a time Zyprexa at night 01/23/21: Pt doing very well medically but he is very difficult to redirect Hgb 10 One on one sitter now Ativan and Xanax given last night Zyprexa helped im sleep until 3:00 In and out caths ordered by urology consults Review of Systems General: Fatigue, Malaise Neurological: Weakness Objective Exam Vital Signs Vital Signs Date Time Temp Pulse Resp B/P (MAP) Pulse Ox O2 Delivery O2 Flow Rate FiO2 02/02/21 20:00 98 Room Air 02/02/21 20:00 36.6 84 20 147/84 (105) Capillary Refill : General Appearance: No Apparent Distress, WD/WN, Chronically ill, Thin HEENT: PERRL/EOMI, Normal ENT Inspection, Pharynx Normal Neck: Full Range of Motion, Normal Inspection, Non Tender, Supple, Carotid Bruit Respiratory: Chest Non Tender, Lungs Clear, Normal Breath Sounds, No Accessory Muscle Use, No Respiratory Distress Cardiovascular: Regular Rate, Rhythm, No Edema, No Gallop, No JVD, No Murmur, Normal Peripheral Pulses Gastrointestinal: Normal Bowel Sounds, No Organomegaly, No Pulsatile Mass, Non Tender, Soft Back: Normal Inspection, No CVA Tenderness, No Vertebral Tenderness Extremity: Normal Capillary Refill, Normal Inspection, Normal Range of Motion, Non Tender, No Calf Tenderness, No Pedal Edema Neurologic/Psychiatric: Alert, No Motor/Sensory Deficits, Normal Mood/Affect, Abnormal Gait, Disoriented, Motor Weakness Skin: Normal Color, Warm/Dry Lymphatic: No Adenopathy Results/Procedures Lab Laboratory Tests 02/02/21 06:56 Patient resulted labs reviewed. FIM Transfers Therapy Code Descriptions/Definitions Functional [place] Measure: 0=Not Assessed/NA 4=Minimal Assistance 1=Total Assistance 5=Supervision or Setup 2=Maximal Assistance 6=Modified [place] 3=Moderate Assistance 7=Complete IndependenceSCALE: Activities may be completed with or without assistive devices. 5-Rxemeblgiq-cltzpct completes the activity by him/herself with no assistance from a helper. 5-Set-up or Clean-up Assistance-helper sets up or cleans up; patient completes activity. [place] assists only prior to or following the activity. 4-Supervision or Touching Assistance-helper provides verbal cues and/or touching/steadying and/or contact guard assistance as patient completes activity. Assistance may be provided throughout the activity or intermittently. 3-Partial/Moderate Assistance-helper does LESS THAN HALF the effort. [place] lifts, holds or supports trunk or limbs, but provides less than half the effort. 2-Substantial/Maximal Assistance-helper does MORE THAN HALF the effort. [place] lifts or holds trunk or limbs and provides more than half the effort. 8-Fhdgumkbv-oiofdo does ALL the effort. Patient does none of the effort to complete the activity. Or, the assistance of 2 or more helpers is required for the patient to complete the activity. If activity was not attempted, code reason: 7-Patient Refused. 9-Not Applicable-not attempted and the patient did not perform the activity before the current illness, exacerbation or injury. 10-Not Attempted due to Environmental Limitations-(lack of equipment, weather restraints, etc.). 88-Not Attempted due to Medical Conditions or Safety Concerns. Roll Left to Right (QC): 6 Sit to Lying (QC): 6 Sit to Stand (QC): 4 Chair/Qyp-wf-Ydkbs Xfer(QC): 4 Car Transfer (QC): 4 Gait Training Does the Patient Walk?: Yes Distance: 300 ft Walk 10 feet (QC): 4 Walk 50 ft with 2 Turns(QC): 4 Walk 150 ft (QC): 4 Walking 10ft/uneven surface-QC: 4 Gait Persons Needed: 1 Gait Assistive Device: FWW Wheelchair Training Does the Pt Use a Wheelchair?: No Wheel 50 ft with 2 turns (QC): 9 Wheel 150 ft (QC): 9 Stair Training Stair Training: Handrails/: 2 handrails #of Steps: 12 1 Step (curb) (QC): 4 4 Steps (QC): 88 12 Steps (QC): 88 Balance Picking up an Object (QC): 4 ADL-Treatment Eating (QC): 6 Oral Hygiene (QC): 4 (SBA standing at sink) Shower/Bathe Self (QC): 4 (SBA, pt able to wash/dry all parts.) Upper Body Dressing (QC): 5 (set up) Lower Body Dressing (QC): 4 (CGA in pant hike) On/Off Footwear (QC): 5 (set up of socks and shoes) Toileting Hygiene (QC): 4 (CGA in stand at toilet to urinate) Toilet Transfer (QC): 4 (CGA) Assessment/Plan Assessment and Plan Assess & Plan/Chief Complaint Assessment: Hemorrhagic stroke Encephalopathy Urinary retention Pulled Sahu catheter out bulb intact upon arrival on 01/22/2021 Hypertension Hyperlipidemia Plan: Aggressive rehabilitation Urology consult Antipsychotics for encephalopathy 01/23/21: Monitor confusion Zyprexa and anti-psychotics 01/24/2021: Supportive care Confusion management 01/25/2021: Urinary retention management Urology appreciated Confusion is improved 01/26/2021: Supportive care Sitter required Fall risk 01/27/21: Monitor closely Fall risk 01/28/2021: Monitor closely May need skilled care 01/29/2021: Supportive care Sitter 01/30/2021: Continue urinary retention management Urology is appreciated 01/31/2021: In and out cath Supportive care 02/01/2021: Urinary retention management Monitor closely 02/02/2021: Supportive care Disposition pending (1) Hemorrhagic stroke RIGOBERTO HODGES DO Feb 02, 2021 09:53
--- NOTE | 2021-02-02 11:49 | Progress Note - Urology ---
Progress Note-Urology Progress Notes/Assess & Plan Progress/Assessment & Plan VOIDING ON OWN BUT STILL CARIES RESIDUAL BUT LESS THAN 300CC AND NO STRAIGHT CATH OVER THE WEEKEND. PLAN INCREASE FLOMAX TO BID Final Diagnosis RETENTION DAMEON LARA MD Feb 02, 2021 11:49
--- NOTE | 2021-02-02 11:53 | Physical Therapy Daily Note ---
PT Daily Note-Current Subjective Pt laying Supine in bed with sitter present upon arrival. Pt agrees to PT. Pain Location: No Pain Reported Mental Status Patient Orientation: Person, Confused, Place Transfers SCALE: Activities may be completed with or without assistive devices. 2-Wdjkxdumhe-alinhrn completes the activity by him/herself with no assistance from a helper. 5-Set-up or Clean-up Assistance-helper sets up or cleans up; patient completes activity. [place] assists only prior to or following the activity. 4-Supervision or Touching Assistance-helper provides verbal cues and/or touching/steadying and/or contact guard assistance as patient completes activity. Assistance may be provided throughout the activity or intermittently. 3-Partial/Moderate Assistance-helper does LESS THAN HALF the effort. [place] lifts, holds or supports trunk or limbs, but provides less than half the effort. 2-Substantial/Maximal Assistance-helper does MORE THAN HALF the effort. [place] lifts or holds trunk or limbs and provides more than half the effort. 2-Futglejex-moxwrn does ALL the effort. Patient does none of the effort to complete the activity. Or, the assistance of 2 or more helpers is required for the patient to complete the activity. If activity was not attempted, code reason: 7-Patient Refused. 9-Not Applicable-not attempted and the patient did not perform the activity before the current illness, exacerbation or injury. 10-Not Attempted due to Environmental Limitations-(lack of equipment, weather restraints, etc.). 88-Not Attempted due to Medical Conditions or Safety Concerns. Lying to Sitting/Side of Bed(Q: 4 Sit to Stand (QC): 4 Toilet Transfer (QC): 4 Weight Bearing Full Weight Bearing Full Weight Bearing Gait Training Does the Patient Walk?: Yes Distance: 400' x2 Walk 10 feet (QC): 4 Walk 50 ft with 2 Turns(QC): 4 Walk 150 ft (QC): 4 Gait Persons Needed: 1 Gait Assistive Device: FWW Wheelchair Training Does the Pt Use a Wheelchair?: No Stair Training Stair Training: Handrails/: 2 handrails #of Steps: 8 1 Step (curb) (QC): 4 4 Steps (QC): 4 Stairs: Pattern: Step to Exercises Standing: Hip Abduction, Hamstring curls, Heel/toe raises, Marching, Weight shifts Standing Reps: 15 NuStep Minutes: 15 NuStep Workload: 4 Treatments Declines need for BR. TF to standing and amb. in hallway, takes short RB. Pt completes 2 sets of 4 steps then takes RB. Pt uses NuStep for 15m at WL 4 then takes short RB before Standing Ex at //bars. Pt amb. in hallway for extended walk again. Pt returns to room and uses BR before TF back to bed. All needs met, call light in hand. Assessment Current Status: Good Progress Pt is taking longer amb. and improving with activity tolerance as well as improving balance. PT Short Term Goals Short Term Goals Time Frame: Jan 29, 2021 Roll Left & Right: 6 Sit to lyin Lying to sitting on side of be: 6 Sit to stand: 4 (SBA) Chair/goh-db-dnlci transfer: 4 (SBA) Walk 10 feet: 4 (SA) Walk 50 feet with two turns: 4 (SBA) PT Respiratory Scientist Goals Respiratory Scientist Goals PT Snf Goals Time Frame: Feb 12, 2021 Roll Left & Right (QC): 6 Sit to Lying (QC): 6 Lying-Sitting on Side/Bed(QC): 6 Sit to Stand (QC): 5 Chair/Ncr-nn-Kxejg Xfer(QC): 5 Toilet Transfer (QC): 5 Car Transfer (QC): 5 Does the Patient Walk: Yes Walk 10 feet (QC): 5 Walk 50ft with 2 Turns (QC): 5 Walk 150 ft (QC): 5 Walking 10ft on Uneven Surface: 5 1 Step (curb) (QC): 4 4 Steps (QC): 4 12 Steps (QC): 88 Picking up an Object (QC): 4 Wheel 50 feet with 2 turns (QC: 9 Wheel 150 feet: 9 PT Plan Problem List Problem List: Safety Treatment/Plan Treatment Plan: Continue Plan of Care Treatment Plan: Bed Mobility, Education, Functional Activity Rizwan, Functional Strength, Group Therapy, Gait, Safety, Therapeutic Exercise, Transfers Treatment Duration: Feb 12, 2021 Frequency: At least 5 of 7 days/Wk (IRF) Estimated Hrs Per Day: 1.5 hours per day Patient and/or Family Agrees t: Yes Safety Risks/Education Patient Education: Gait Training, Correct Positioning, Safety Issues Teaching Recipient: Patient Teaching Methods: Discussion Response to Teaching: Verbalize Understanding Time/GCodes Time In: 1000 Time Out: 1115 Total Billed Treatment Time: 75 Total Billed Treatment 1, GT x2 (30m), EX x2 (30m) & FA (15m) GEORGE JONES WATCH GUARD GATE Feb 02, 2021 11:53
[2021-02-02] MEDS: TAMSULOSIN 0.4 MG (FLOMAX) CAP PO SCH ×3 (12:28→21:51)
[2021-02-02 20:00] VITALS: BP 147/84
[2021-02-02] MEDS: OLANZapine 5 MG (ZyPREXA) TAB PO SCH (21:50)
[2021-02-02] MEDS: MELATONIN 3 MG TABLET PO PRN (21:51)
[2021-02-03] MEDS: BETHANECHOL 25 MG (URECHOLINE) TAB PO SCH ×4 (05:53→21:34)
--- NOTE | 2021-02-03 06:16 | PM&R Progress Note ---
Subjective HPI/CC On Admission Date Seen by Provider: Feb 03, 2021 Time Seen by Provider: 10:00 Subjective/Events-last exam 02/03/2021: Pt doing pretty well Cystoscopy tomorrow Will DC to home No new issues 02/02/2021: Pt has not required a catheter for in-and-out caths He voided 400 CCs Sitter is in place Incontinent at times 02/01/2021: Patient sleeping very soundly Sitter still at bedside Monitor closely 01/31/2021: Patient sleeping soundly No falls Check meds and labs Confusion persist 01/30/2021: Still needs sitter Impulsive Fall risk Check meds and labs 01/29/2021: Pt is more calm but still requiring a sitter No other issues No pain Eating a drinking well 01/28/2021: Pt doing a lot better [facility] lucid [facility] 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 Busby will initiate a cystocope soon 01/25/2021: Patient improved overall Sleeping better Had urinary retention requiring in and out caths Confused but redirectable 01/24/2021: Pt very confused Had an in-and-out catheter at 6:00 this morning Voiding 300 at a time Zyprexa at night 01/23/21: Pt doing very well medically but he is very difficult to redirect Hgb 10 One on one sitter now Ativan and Xanax given last night Zyprexa helped im sleep until 3:00 In and out caths ordered by urology consults Review of Systems General: Fatigue, Malaise Genitourinary: Retention Neurological: Confusion Objective Exam Vital Signs Vital Signs Date Time Temp Pulse Resp B/P (MAP) Pulse Ox O2 Delivery O2 Flow Rate FiO2 02/03/21 21:36 98 Room Air 02/03/21 20:00 36.8 79 16 149/83 (105) Capillary Refill : General Appearance: No Apparent Distress, WD/WN, Chronically ill, Thin HEENT: PERRL/EOMI, Normal ENT Inspection, Pharynx Normal Neck: Full Range of Motion, Normal Inspection, Non Tender, Supple, Carotid Bruit Respiratory: Chest Non Tender, Lungs Clear, Normal Breath Sounds, No Accessory Muscle Use, No Respiratory Distress Cardiovascular: Regular Rate, Rhythm, No Edema, No Gallop, No JVD, No Murmur, Normal Peripheral Pulses Gastrointestinal: Normal Bowel Sounds, No Organomegaly, No Pulsatile Mass, Non Tender, Soft Back: Normal Inspection, No CVA Tenderness, No Vertebral Tenderness Extremity: Normal Capillary Refill, Normal Inspection, Normal Range of Motion, Non Tender, No Calf Tenderness, No Pedal Edema Neurologic/Psychiatric: Alert, No Motor/Sensory Deficits, Normal Mood/Affect, Abnormal Gait, Disoriented, Motor Weakness Skin: Normal Color, Warm/Dry Lymphatic: No Adenopathy Results/Procedures Lab Patient resulted labs reviewed. FIM Transfers Therapy Code Descriptions/Definitions Functional [place] Measure: 0=Not Assessed/NA 4=Minimal Assistance 1=Total Assistance 5=Supervision or Setup 2=Maximal Assistance 6=Modified [place] 3=Moderate Assistance 7=Complete IndependenceSCALE: Activities may be completed with or without assistive devices. 8-Tjobwtcmxy-eagqzor completes the activity by him/herself with no assistance from a helper. 5-Set-up or Clean-up Assistance-helper sets up or cleans up; patient completes activity. [place] assists only prior to or following the activity. 4-Supervision or Touching Assistance-helper provides verbal cues and/or to uching/steadying and/or contact guard assistance as patient completes activity. Assistance may be provided throughout the activity or intermittently. 3-Partial/Moderate Assistance-helper does LESS THAN HALF the effort. [place] lifts, holds or supports trunk or limbs, but provides less than half the effort. 2-Substantial/Maximal Assistance-helper does MORE THAN HALF the effort. [place] lifts or holds trunk or limbs and provides more than half the effort. 3-Bdpoynbsf-vllopb does ALL the effort. Patient does none of the effort to complete the activity. Or, the assistance of 2 or more helpers is required for the patient to complete the activity. If activity was not attempted, code reason: 7-Patient Refused. 9-Not Applicable-not attempted and the patient did not perform the activity before the current illness, exacerbation or injury. 10-Not Attempted due to Environmental Limitations-(lack of equipment, weather restraints, etc.). 88-Not Attempted due to Medical Conditions or Safety Concerns. Roll Left to Right (QC): 6 Sit to Lying (QC): 6 Sit to Stand (QC): 4 Chair/Pfj-sd-Sbnzf Xfer(QC): 4 Car Transfer (QC): 4 Gait Training Does the Patient Walk?: Yes Distance: 400' x2 Walk 10 feet (QC): 4 Walk 50 ft with 2 Turns(QC): 4 Walk 150 ft (QC): 4 Walking 10ft/uneven surface-QC: 4 Gait Persons Needed: 1 Gait Assistive Device: FWW Wheelchair Training Does the Pt Use a Wheelchair?: No Wheel 50 ft with 2 turns (QC): 9 Wheel 150 ft (QC): 9 Stair Training Stair Training: Handrails/: 2 handrails #of Steps: 8 1 Step (curb) (QC): 4 4 Steps (QC): 4 12 Steps (QC): 88 Stairs: Pattern: Step to Balance Picking up an Object (QC): 4 ADL-Treatment Eating (QC): 6 Oral Hygiene (QC): 4 (SBA standing at sink) Shower/Bathe Self (QC): 4 (SBA, pt able to wash/dry all parts.) Upper Body Dressing (QC): 5 (set up) Lower Body Dressing (QC): 4 (CGA in pant hike) On/Off Footwear (QC): 5 (set up of socks and shoes) Toileting Hygiene (QC): 4 (CGA in stand at toilet to urinate) Toilet Transfer (QC): 4 (CGA) Assessment/Plan Assessment and Plan Assess & Plan/Chief Complaint Assessment: Hemorrhagic stroke Encephalopathy Urinary retention Pulled Sahu catheter out bulb intact upon arrival on 01/22/2021 Hypertension Hyperlipidemia Plan: Aggressive rehabilitation Urology consult Antipsychotics for encephalopathy 01/23/21: Monitor confusion Zyprexa and anti-psychotics 01/24/2021: Supportive care Confusion management 01/25/2021: Urinary retention management Urology appreciated Confusion is improved 01/26/2021: Supportive care Sitter required Fall risk 01/27/21: Monitor closely Fall risk 01/28/2021: Monitor closely May need skilled care 01/29/2021: Supportive care Sitter 01/30/2021: Continue urinary retention management Urology is appreciated 01/31/2021: In and out cath Supportive care 02/01/2021: Urinary retention management Monitor closely 02/02/2021: Supportive care Disposition pending 02/03/2021: Cystoscopy today Supportive care (1) Hemorrhagic stroke RIGOBERTO HODGES DO Feb 03, 2021 06:16
[2021-02-03 07:43] VITALS: BP 147/72
--- NOTE | 2021-02-03 08:23 | Occupational Ther Daily Note ---
OT Current Status-Daily Note Subjective Pt's chair alarm going off and pt ambulating towards bathroom without AD upon OT arrival. Mental Status/Objective Patient Orientation: Person, Confused (slightly) ADL-Treatment Therapy Code Descriptions/Definitions Functional [place] Measure: 0=Not Assessed/NA 4=Minimal Assistance 1=Total Assistance 5=Supervision or Setup 2=Maximal Assistance 6=Modified [place] 3=Moderate Assistance 7=Complete IndependenceSCALE: Activities may be completed with or without assistive devices. 8-Ovnjkxzazr-ngazxuh completes the activity by him/herself with no assistance from a helper. 5-Set-up or Clean-up Assistance-helper sets up or cleans up; patient completes activity. [place] assists only prior to or following the activity. 4-Supervision or Touching Assistance-helper provides verbal cues and/or touching/steadying and/or contact guard assistance as patient completes activity. Assistance may be provided throughout the activity or intermittently. 3-Partial/Moderate Assistance-helper does LESS THAN HALF the effort. [place] lifts, holds or supports trunk or limbs, but provides less than half the effort. 2-Substantial/Maximal Assistance-helper does MORE THAN HALF the effort. [place] lifts or holds trunk or limbs and provides more than half the effort. 6-Qausrcqem-wsxxyh does ALL the effort. Patient does none of the effort to complete the activity. Or, the assistance of 2 or more helpers is required for the patient to complete the activity. If activity was not attempted, code reason: 7-Patient Refused. 9-Not Applicable-not attempted and the patient did not perform the activity before the current illness, exacerbation or injury. 10-Not Attempted due to Environmental Limitations-(lack of equipment, weather restraints, etc.). 88-Not Attempted due to Medical Conditions or Safety Concerns. On/Off Footwear: 5 (set up with shoes.) Toileting Hygiene (QC): 3 (Assist for thoroughness with hygiene, pt able to manage clothing) Toilet Transfer (QC): 4 (CGA on/off toilet) Other Treatment Pt ambulating towards bathroom without AD, chair alarm going off upon OT arrival. OT assisted pt to sit on toilet with CGA for safety. Pt complected toileting, incontinent of bowels. OT assisted pt with changing soiled brief and with toilet hygiene for thoroughness. Pt used FWW to stand at sink and wash hands SBA, then used FWW to return to recliner. Pt performed functional mobility from room to therapy gym using FWW, CGA, pt required cues for direction. In order to increase BUE strength and activity tolerance, pt completed arm bike x20 mins, 30 watt resistance. He then placed 1" pegs into foam pegboard, alternating hands with 1 lb wrist weight BUEs. Pt able to complete x100 pegs placing, then removing all pegs. Pt removed beads from moderate resistance theraputty, able ot locate all beads without cues. Pt returned to his room using FWW, CGA, cues for direction. Post tx, pt laying in bed, call light in reach and all needs met, bed alarm activated. Education OT Patient Education: Correct positioning, Energy conservation, Exercise program, Modified ADL techniques, Progress toward Goal/Update tx plan, Purpose of tx/functional activities, Rehab process Teaching Recipient: Patient Teaching Methods: Discussion Response to Teaching: Verbalize Understanding OT Short Term Goals Short Term Goals Time Frame: Feb 02, 2021 Oral hygiene: 5 Toileting hygiene: 4 Shower/bathe self: 4 Upper body dressin Lower body dressin OT Report Programmer Goals [facility] Goals Time Frame: Feb 20, 2021 Eating (QC): 6 Oral Hygiene (QC): 6 Toileting Hygiene (QC): 6 Shower/Bathe Self (QC): 6 Upper Body Dressing (QC): 6 Lower Body Dressing (QC): 6 On/Off Footwear (QC): 6 Additional Goals: 1-Demonstrate ADL Tasks, 2-Verbalize Understanding, 3- ImproveStrength/Rizwan 1=Demonstrate adherence to instructed precautions during ADL tasks. 2=Patient will verbalize/demonstrate understanding of assistive devices/modifications for ADL. 3=Patient will improve strength/tolerance for activity to enable patient to perform ADL's. OT Education/Plan Problem List/Assessment Assessment: Decreased Activ Tolerance, Decreased Safety Aware, Decreased UE Strength, Impaired Funct Balance, Impaired I ADL's, Impaired Self-Care Skills Discharge Recommendations Plan/Recommendations: Continue POC Treatment Plan/Plan of Care Patient would benefit from OT for education, treatment and training to promote independence in ADL's, mobility, safety and/or upper extremity function for ADL's. Plan of Care: ADL Retraining, Functional Mobility, Group Exercise/Act as Ind, UE Funct Exercise/Act Treatment Duration: Feb 20, 2021 Frequency: At least 5 of 7 days/Wk (IRF) Estimated Hrs Per Day: 1.5 hours per day Rehab Potential: Fair Time/GCodes Start Time: 08:00 Stop Time: 09:15 Total Time Billed (hr/min): 75 Billed Treatment Time 1, ADL (15'), EX (20'), FA 3 (40') ELISEO TEJADA OT Feb 03, 2021 08:23
[2021-02-03] MEDS: CLOPIDOGREL 75 MG (PLAVIX) TABLET PO SCH (09:17)
[2021-02-03] MEDS: ISOSORBIDE MONONITRATE 30 MG (IMDUR) TAB PO SCH (09:17)
[2021-02-03] MEDS: DOCUSATE SODIUM 100 MG (COLACE) CAP PO SCH ×2 (09:17→21:34)
[2021-02-03] MEDS: LORATADINE (CLARITIN) 10 MG TAB PO SCH (09:17)
[2021-02-03] MEDS: doxAzosin 4 MG (CARDURA) TAB PO SCH (09:17)
[2021-02-03] MEDS: polyethylene glycoL POWDER 17 GM (MIRALAX) PACK PO SCH ×2 (09:17→21:42)
[2021-02-03] MEDS: TAMSULOSIN 0.4 MG (FLOMAX) CAP PO SCH ×3 (09:17→21:34)
[2021-02-03] MEDS: SENNA W/DOCUSATE (SENOKOT S) TABLET PO SCH ×2 (09:18→21:33)
[2021-02-03] MEDS: FAMOTIDINE 20 MG (PEPCID) TABLET PO SCH (09:18)
[2021-02-03] MEDS: amLODIPine 5 MG (NORVASC) TAB PO SCH (09:18)
[2021-02-03] MEDS: LOSARTAN 50 MG (COZAAR) TAB PO SCH ×2 (09:18→21:34)
--- NOTE | 2021-02-03 09:40 | Speech Therapy Daily Note ---
Speech Daily Progress Note Subjective Date Seen by Provider: Feb 03, 2021 Time Seen by Provider: 00:30 Patient resting in bed, states "not much going on, just got back in bed". Objective Patient answered a series of general questions related to his daily needs with 75% given min to mod verbal cues. Assessment Assessment Current Status: Fair Progress Treatment Plan Continue Plan of Care Speech Short Term Goals Short Term Goals Short Term Goals 1) Patient will complete orientation tasks related to her daily needs at 60% or greater with minimal cues. 2) Patient will complete safety awareness tasks related to her daily needs at 60% or greater with minimal cues. Speech Usp Goals Revenue Analyst Goals Patient will improve cognitive function for safety and orientation. Speech-Plan Patient/Family Goals Patient/Family Goals: Patient plans on returning to his home where he lives with his and disabled son. At this time he is scheduled to discharge on , 02/05/2021. Treatment Plan Speech Therapy Treatment Plan: Continue Plan of Care Treatment Duration: Feb 06, 2021 Frequency: 4 times per week (Patient will receive skilled ST 4-5x per week) Estimated Hrs Per Day: .5 hour per day Rehab Potential: Fair Barriers to Learning: Patient's level of dementia, confusion Pt/Family Agrees to Plan: Yes Safety Risks/Education Teaching Recipient: Patient Teaching Methods: Demonstration, Discussion Response to Teaching: Verbalize Understanding, Return Demonstration Education Topics Provided: Continued safety, alarm in place Time Speech Therapy Time In: 09:30 Speech Therapy Time Out: 10:00 Total Billed Time: 30 Billed Treatment Time 1, SLSAMIR Arnett Feb 03, 2021 09:40
--- NOTE | 2021-02-03 10:23 | Progress Note - Urology ---
Progress Note-Urology Progress Notes/Assess & Plan Progress/Assessment & Plan STILL CARRIES PVR. PLAN CYSTOSCOPY TOMORROW. FULLY EXPLAINED TO PATIENT. PREOP AND CONSENT ORDERED Final Diagnosis URINE RETENTION DAMEON LARA MD Feb 03, 2021 10:23
--- NOTE | 2021-02-03 11:30 | Physical Therapy Daily Note ---
PT Daily Note-Current Subjective Pt laying in bed upon arrival. Pt agrees to PT. Pain Numeric Pain Scale: 3 Location Body Site: Shoulder Pain Description: Ache Mental Status Patient Orientation: Person, Confused, Place Transfers SCALE: Activities may be completed with or without assistive devices. 7-Pfqfxsrbec-klufavp completes the activity by him/herself with no assistance from a helper. 5-Set-up or Clean-up Assistance-helper sets up or cleans up; patient completes activity. [place] assists only prior to or following the activity. 4-Supervision or Touching Assistance-helper provides verbal cues and/or touching/steadying and/or contact guard assistance as patient completes activity. Assistance may be provided throughout the activity or intermittently. 3-Partial/Moderate Assistance-helper does LESS THAN HALF the effort. [place] lifts, holds or supports trunk or limbs, but provides less than half the effort. 2-Substantial/Maximal Assistance-helper does MORE THAN HALF the effort. [place] lifts or holds trunk or limbs and provides more than half the effort. 1-Rkopkagph-nwmxvg does ALL the effort. Patient does none of the effort to complete the activity. Or, the assistance of 2 or more helpers is required for the patient to complete the activity. If activity was not attempted, code reason: 7-Patient Refused. 9-Not Applicable-not attempted and the patient did not perform the activity before the current illness, exacerbation or injury. 10-Not Attempted due to Environmental Limitations-(lack of equipment, weather restraints, etc.). 88-Not Attempted due to Medical Conditions or Safety Concerns. Roll Left & Right (QC): 6 Sit to Lying (QC): 6 Lying to Sitting/Side of Bed(Q: 6 Sit to Stand (QC): 5 Chair/Wgj-ni-Ueypn Xfer(QC): 5 Toilet Transfer (QC): 5 Car Transfer (QC): 5 Weight Bearing Full Weight Bearing Full Weight Bearing Gait Training Does the Patient Walk?: Yes Distance: 750' Walk 10 feet (QC): 5 Walk 50 ft with 2 Turns(QC): 5 Walk 150 ft (QC): 5 Walking 10ft/uneven surface-QC: 5 Gait Persons Needed: 1 Gait Assistive Device: FWW Pt given VC for safety occasionally. Wheelchair Training Does the Pt Use a Wheelchair?: No Stair Training Stair Training: Handrails/: 2 handrails #of Steps: 8 1 Step (curb) (QC): 5 4 Steps (QC): 5 12 Steps (QC): 7 Stairs: Pattern: Reciprocal Balance Picking up an Object (QC): 88 Special Test Comments Pt gets dizzy & off balance when bending over. Exercises NuStep Minutes: 15 NuStep Workload: 5 Treatments Pt completes QC scoring items listed above as well as uses Nustep for 15m at WL 5. Pt also amb. extended distance in hallway and in main floor hospital garden area. Pt returns to to room at end of tx to use BR and rest Supine in bed. All needs met, bed alarm on & call light in hand. Assessment Current Status: Good Progress Pt forgets safety occasionally and needs VC to remind. PT Short Term Goals Short Term Goals Time Frame: Jan 29, 2021 Roll Left & Right: 6 Sit to lyin Lying to sitting on side of be: 6 Sit to stand: 4 (SBA) Chair/qwx-lz-szotw transfer: 4 (SBA) Walk 10 feet: 4 (SA) Walk 50 feet with two turns: 4 (SBA) PT Alf Goals Alf Goals PT Alf Goals Time Frame: Feb 12, 2021 Roll Left & Right (QC): 6 Sit to Lying (QC): 6 Lying-Sitting on Side/Bed(QC): 6 Sit to Stand (QC): 5 Chair/Bpo-es-Mrcuh Xfer(QC): 5 Toilet Transfer (QC): 5 Car Transfer (QC): 5 Does the Patient Walk: Yes Walk 10 feet (QC): 5 Walk 50ft with 2 Turns (QC): 5 Walk 150 ft (QC): 5 Walking 10ft on Uneven Surface: 5 1 Step (curb) (QC): 4 4 Steps (QC): 4 12 Steps (QC): 88 Picking up an Object (QC): 4 Wheel 50 feet with 2 turns (QC: 9 Wheel 150 feet: 9 PT Plan Problem List Problem List: Safety Treatment/Plan Treatment Plan: Continue Plan of Care Treatment Plan: Bed Mobility, Education, Functional Activity Rizwan, Functional Strength, Group Therapy, Gait, Safety, Therapeutic Exercise, Transfers Treatment Duration: Feb 12, 2021 Frequency: At least 5 of 7 days/Wk (IRF) Estimated Hrs Per Day: 1.5 hours per day Patient and/or Family Agrees t: Yes Safety Risks/Education Patient Education: Safety Issues Teaching Recipient: Patient Teaching Methods: Discussion Response to Teaching: Verbalize Understanding Time/GCodes Time In: 1000 Time Out: 1115 Total Billed Treatment Time: 75 Total Billed Treatment 1, GT x2 (30m) & FA x3 (45m) GEORGE JONES GARDE MANGER Feb 03, 2021 11:30
[2021-02-03 20:00] VITALS: BP 149/83
[2021-02-03] MEDS: OLANZapine 5 MG (ZyPREXA) TAB PO SCH (21:33)
[2021-02-03] MEDS: ALPRAZolam 0.25 MG (XANAX) TAB PO PRN (21:34)
[2021-02-03] MEDS: MELATONIN 3 MG TABLET PO PRN (21:35)
[2021-02-04] MEDS ORDERED: LIDOCAINE UROJET 2% GEL 10 ML PKG TOP ONE (03:00)
[2021-02-04] MEDS: BETHANECHOL 25 MG (URECHOLINE) TAB PO SCH ×4 (06:17→21:39)
--- NOTE | 2021-02-04 07:33 | Progress Note-Pre Operative ---
Pre-Operative Progress Note H&P Reviewed The H&P was reviewed, patient examined and no changes noted. Date Seen by Provider: Feb 04, 2021 Time Seen by Provider: 07:33 Date H&P Reviewed: Feb 04, 2021 Time H&P Reviewed: 07:33 Pre-Operative Diagnosis: URINE RETENTION DAMEON LARA MD Feb 04, 2021 07:33
[2021-02-04 07:37] VITALS: BP 172/92
[2021-02-04] MEDS: doxAzosin 4 MG (CARDURA) TAB PO SCH (08:31)
[2021-02-04] MEDS: FAMOTIDINE 20 MG (PEPCID) TABLET PO SCH (08:32)
--- NOTE | 2021-02-04 08:32 | Occupational Ther Daily Note ---
OT Current Status-Daily Note Subjective Pt laying in bed, agreeable to OT tx. Mental Status/Objective Patient Orientation: Person, Confused (slightly) ADL-Treatment Therapy Code Descriptions/Definitions Functional [place] Measure: 0=Not Assessed/NA 4=Minimal Assistance 1=Total Assistance 5=Supervision or Setup 2=Maximal Assistance 6=Modified [place] 3=Moderate Assistance 7=Complete IndependenceSCALE: Activities may be completed with or without assistive devices. 0-Totmyyocyv-rjooegq completes the activity by him/herself with no assistance from a helper. 5-Set-up or Clean-up Assistance-helper sets up or cleans up; patient completes activity. [place] assists only prior to or following the activity. 4-Supervision or Touching Assistance-helper provides verbal cues and/or touching/steadying and/or contact guard assistance as patient completes activity. Assistance may be provided throughout the activity or intermittently. 3-Partial/Moderate Assistance-helper does LESS THAN HALF the effort. [place] lifts, holds or supports trunk or limbs, but provides less than half the effort. 2-Substantial/Maximal Assistance-helper does MORE THAN HALF the effort. [place] lifts or holds trunk or limbs and provides more than half the effort. 9-Pssclsfbl-mszliy does ALL the effort. Patient does none of the effort to complete the activity. Or, the assistance of 2 or more helpers is required for the patient to complete the activity. If activity was not attempted, code reason: 7-Patient Refused. 9-Not Applicable-not attempted and the patient did not perform the activity before the current illness, exacerbation or injury. 10-Not Attempted due to Environmental Limitations-(lack of equipment, weather restraints, etc.). 88-Not Attempted due to Medical Conditions or Safety Concerns. Eating (QC): 6 Oral Hygiene (QC): 4 (Supervision standing at sink) Shower/Bathe Self (QC): 4 (Supervision in stand. Pt able to wash/dry all parts) Upper Body Dressing (QC): 5 (set up) Lower Body Dressing (QC): 4 (supervision in stand for pant hike) On/Off Footwear: 6 (IND with gripper socks and shoes) Toileting Hygiene (QC): 4 (supervision in stand, pt able to manage hygiene and pant hike) Toilet Transfer (QC): 4 (supervision) Other Treatment Pt laying in bed, transferred EOB, then used FWW to perform functional mobility to bathroom and onto toilet. Pt completed toileting, then transferred to shower to doff clothes and complete shower. Pt dried off, got dressed, then stood at sink to complete oral care. See QC scores above. Pt used FWW to perform fun ctional mobility around [facility] common area and into therapy gym. In order to increase BUE strength and activity tolerance, pt completes x20 mins on arm bike, 30 watt resistance. Pt took rest breaks as needed. Pt used FWW to return to room, transferring to bed. Post tx, pt laying inb ed, call light in reach and all needs met, bed alarm activated. Education OT Patient Education: Correct positioning, Energy conservation, Exercise program, Modified ADL techniques, Progress toward Goal/Update tx plan, Purpose of tx/functional activities, Rehab process Teaching Recipient: Patient Teaching Methods: Discussion Response to Teaching: Verbalize Understanding OT Short Term Goals Short Term Goals Time Frame: Feb 02, 2021 Oral hygiene: 5 Toileting hygiene: 4 Shower/bathe self: 4 Upper body dressin Lower body dressin OT Halfway Goals Veterinary Medicine Teacher Goals Time Frame: Feb 20, 2021 Eating (QC): 6 (met) Oral Hygiene (QC): 6 (not met, supervision) Toileting Hygiene (QC): 6 (not met, supervision) Shower/Bathe Self (QC): 6 (not met, supervision) Upper Body Dressing (QC): 6 (not met, set up) Lower Body Dressing (QC): 6 (not met, supervision) On/Off Footwear (QC): 6 (met) Additional Goals: 1-Demonstrate ADL Tasks, 2-Verbalize Understanding, 3- ImproveStrength/Riz[place] 1=Demonstrate adherence to instructed precautions during ADL tasks. 2=Patient will verbalize/demonstrate understanding of assistive devices/modifications for ADL. 3=Patient will improve strength/tolerance for activity to enable patient to perform ADL's. OT Education/Plan Problem List/Assessment Assessment: Decreased Activ Tolerance, Decreased Safety Aware, Decreased UE Strength, Impaired Funct Balance, Impaired I ADL's, Impaired Self-Care Skills Discharge Recommendations Plan/Recommendations: Continue POC Treatment Plan/Plan of Care Patient would benefit from OT for education, treatment and training to promote independence in ADL's, mobility, safety and/or upper extremity function for ADL's. Plan of Care: ADL Retraining, Functional Mobility, Group Exercise/Act as Ind, UE Funct Exercise/Act Treatment Duration: Feb 20, 2021 Frequency: At least 5 of 7 days/Wk (IRF) Estimated Hrs Per Day: 1.5 hours per day Rehab Potential: Fair Time/GCodes Start Time: 07:45 Stop Time: 09:00 Total Time Billed (hr/min): 75 Billed Treatment Time 1, ADL 3 (50'), EX 2 (25') ELISEO TEJADA OT Feb 04, 2021 08:32
[2021-02-04] MEDS: LORATADINE (CLARITIN) 10 MG TAB PO SCH (08:33)
[2021-02-04] MEDS: LOSARTAN 50 MG (COZAAR) TAB PO SCH ×2 (08:33→21:39)
[2021-02-04] MEDS: SENNA W/DOCUSATE (SENOKOT S) TABLET PO SCH ×2 (08:33→21:35)
[2021-02-04] MEDS: CLOPIDOGREL 75 MG (PLAVIX) TABLET PO SCH (08:33)
[2021-02-04] MEDS: ISOSORBIDE MONONITRATE 30 MG (IMDUR) TAB PO SCH (08:33)
[2021-02-04] MEDS: polyethylene glycoL POWDER 17 GM (MIRALAX) PACK PO SCH ×2 (08:33→21:40)
[2021-02-04] MEDS: amLODIPine 5 MG (NORVASC) TAB PO SCH (08:33)
[2021-02-04] MEDS: DOCUSATE SODIUM 100 MG (COLACE) CAP PO SCH ×2 (08:35→21:35)
[2021-02-04] MEDS: TAMSULOSIN 0.4 MG (FLOMAX) CAP PO SCH ×3 (08:35→21:40)
--- NOTE | 2021-02-04 09:21 | Speech Therapy Daily Note ---
Speech Daily Progress Note Subjective Date Seen by Provider: Feb 04, 2021 Time Seen by Provider: 00:30 Patient was resting in bed following his OT session. He states his back was hurting but was given Tylenol. Objective Patient completed a series of q/a related to daily needs with 75% given min to mod cues. Assessment Assessment Current Status: Good Progress Treatment Plan Discontinue ST Speech Short Term Goals Short Term Goals Short Term Goals 1) Patient will complete orientation tasks related to her daily needs at 60% or greater with minimal cues. 2) Patient will complete safety awareness tasks related to her daily needs at 60% or greater with minimal cues. Speech Rail Loader Goals Correction Goals Patient will improve cognitive function for safety and orientation. Speech-Plan Patient/Family Goals Patient/Family Goals: Patient is scheduled to d/c (02/05) to his home where he lives with his and disabled son. Treatment Plan Speech Therapy Treatment Plan: Discontinue ST Treatment Duration: Feb 06, 2021 Frequency: 4 times per week (Patient will receive skilled ST 4-5x per week) Estimated Hrs Per Day: .5 hour per day Rehab Potential: Fair Barriers to Learning: Patient's cognitive deficits, dementia level Pt/Family Agrees to Plan: Yes Safety Risks/Education Teaching Recipient: Patient Teaching Methods: Demonstration, Discussion Response to Teaching: Verbalize Understanding, Return Demonstration Education Topics Provided: Continued safety upon his return home Time Speech Therapy Time In: 09:00 Speech Therapy Time Out: 09:30 Total Billed Time: 30 Billed Treatment Time 1, SLTS No QUALITY CODES: EXPRESSION OF IDEAS/WANTS: 3 UNDERSTANDING VERBAL CONTENT: 3 REPETITION OF 3 WORDS: 3 BRIEF INTERVIEW OF MENTAL STATUS: YES TEMPORAL ORIENTATION: YEAR: CORRECT, MONTH: CORRECT, DAY: MISSED BY 5 DAYS RECALL: SOCK: NO, COLOR: YES WITH CUE, BED: NO MEMORY/RECALL ABILITY: THAT HE IS IN THE HOSPITAL SAMIR GARCIA Feb 04, 2021 09:21
--- NOTE | 2021-02-04 10:55 | Physical Therapy Daily Note ---
PT Daily Note-Current Subjective Pt laying Supine in bed upon arrival. Pt agrees to PT. Pain Location: No Pain Reported Mental Status Patient Orientation: Person, Confused, Place Transfers SCALE: Activities may be completed with or without assistive devices. 2-Gphrvftjhn-tvsgdtg completes the activity by him/herself with no assistance from a helper. 5-Set-up or Clean-up Assistance-helper sets up or cleans up; patient completes activity. [place] assists only prior to or following the activity. 4-Supervision or Touching Assistance-helper provides verbal cues and/or touching/steadying and/or contact guard assistance as patient completes activity. Assistance may be provided throughout the activity or intermittently. 3-Partial/Moderate Assistance-helper does LESS THAN HALF the effort. [place] lifts, holds or supports trunk or limbs, but provides less than half the effort. 2-Substantial/Maximal Assistance-helper does MORE THAN HALF the effort. [place] lifts or holds trunk or limbs and provides more than half the effort. 4-Ejbbqimmo-oedxnt does ALL the effort. Patient does none of the effort to complete the activity. Or, the assistance of 2 or more helpers is required for the patient to complete the activity. If activity was not attempted, code reason: 7-Patient Refused. 9-Not Applicable-not attempted and the patient did not perform the activity before the current illness, exacerbation or injury. 10-Not Attempted due to Environmental Limitations-(lack of equipment, weather restraints, etc.). 88-Not Attempted due to Medical Conditions or Safety Concerns. Lying to Sitting/Side of Bed(Q: 6 Sit to Stand (QC): 5 Weight Bearing Full Weight Bearing Full Weight Bearing Gait Training Does the Patient Walk?: Yes Distance: 450' Walk 10 feet (QC): 5 Walk 50 ft with 2 Turns(QC): 5 Walk 150 ft (QC): 5 Gait Persons Needed: 1 Gait Assistive Device: FWW Given VC to stay closer to FWW for safety. Wheelchair Training Does the Pt Use a Wheelchair?: No Exercises Supine Ex: Ankle pumps, Quad Set, Glut sets, Heel Slides, Short Arc Quads, Straight leg raise, Hip abd/add Supine Reps: 15 Seated Therapy Exercises: Ankle pumps, Long arc quads, Hip flexion, Hip abd/add, Glut set Seated Reps: 15 NuStep Minutes: 20 NuStep Workload: 5 Treatments TF from bed to EOB to standing. Pt uses BR then amb. in hallway. Pt uses NuStep for 20m at WL 5 then takes short RB. Nursing notifies BOAT DOCK OPERATOR that Dr Busby is ready for bedside procedure. Pt returns to room and lays Supine. [id number]: Procedure finished so BOAT DOCK OPERATOR returned to complete tx. Pt asleep in bed. BOAT DOCK OPERATOR wakens pt and pt & BOAT DOCK OPERATOR review the issued written HEP for Supine & Seated Ex. These are left with pt. Pt resting with all needs met, call light in hand. Assessment Current Status: Good Progress Pt has moments of confusion and needs VC to reminders of safety. PT Short Term Goals Short Term Goals Time Frame: Jan 29, 2021 Roll Left & Right: 6 Sit to lyin Lying to sitting on side of be: 6 Sit to stand: 4 (SBA) Chair/spd-ep-llzwu transfer: 4 (SBA) Walk 10 feet: 4 (SA) Walk 50 feet with two turns: 4 (SBA) PT Senior Living Goals Senior Living Goals PT Supervisor Shuttle Veneering Goals Time Frame: Feb 12, 2021 Roll Left & Right (QC): 6 Sit to Lying (QC): 6 Lying-Sitting on Side/Bed(QC): 6 Sit to Stand (QC): 5 Chair/Zcl-ne-Enrac Xfer(QC): 5 Toilet Transfer (QC): 5 Car Transfer (QC): 5 Does the Patient Walk: Yes Walk 10 feet (QC): 5 Walk 50ft with 2 Turns (QC): 5 Walk 150 ft (QC): 5 Walking 10ft on Uneven Surface: 5 1 Step (curb) (QC): 4 4 Steps (QC): 4 12 Steps (QC): 88 Picking up an Object (QC): 4 Wheel 50 feet with 2 turns (QC: 9 Wheel 150 feet: 9 PT Plan Problem List Problem List: Safety Treatment/Plan Treatment Plan: Continue Plan of Care Treatment Plan: Bed Mobility, Education, Functional Activity Rizwan, Functional Strength, Group Therapy, Gait, Safety, Therapeutic Exercise, Transfers Treatment Duration: Feb 12, 2021 Frequency: At least 5 of 7 days/Wk (IRF) Estimated Hrs Per Day: 1.5 hours per day Patient and/or Family Agrees t: Yes Safety Risks/Education Patient Education: Gait Training, Correct Positioning, Safety Issues Teaching Recipient: Patient Teaching Methods: Discussion Response to Teaching: Reinforcement Needed Time/GCodes Time In: 1000 Time Out: 1045 Total Billed Treatment Time: 45 Total Billed Treatment [id number]: 1, GT (15m) & EX x2 (30m) [id number]: 1, EX (20m), FA (10m) GEORGE JONES BOAT DOCK OPERATOR Feb 04, 2021 10:55
[2021-02-04 20:08] VITALS: BP 142/77
--- NOTE | 2021-02-04 21:03 | PM&R Progress Note ---
Subjective HPI/CC On Admission Date Seen by Provider: Feb 04, 2021 Time Seen by Provider: 10:30 Subjective/Events-last exam 02/04/21: Pt is set to go home tomorrow Will place indwelling catheter because is not comfortable doing in-and-out caths Pt denies any confusion Overall doing much better 02/03/2021: Pt doing pretty well Cystoscopy tomorrow Will DC to home No new issues 02/02/2021: Pt has not required a catheter for in-and-out caths He voided 400 CCs Sitter is in place Incontinent at times 02/01/2021: Patient sleeping very soundly Sitter still at bedside Monitor closely 01/31/2021: Patient sleeping soundly No falls Check meds and labs Confusion persist 01/30/2021: Still needs sitter Impulsive Fall risk Check meds and labs 01/29/2021: Pt is more calm but still requiring a sitter No other issues No pain Eating a drinking well 01/28/2021: Pt doing a lot better More lucid [facility] Admission if he has a durable power of core analyst Bowels moved on 01/25 In and out catheter about once a day since he had 900cc of retention 01/27/21: Pt likes to walk the halls Confusion is lifting a bit Still a fall risk 01/26/2021: Pt doing pretty well Bowels moved Confusion is noted Difficulty redirecting Dr. Busby will initiate a cystocope soon 01/25/2021: Patient improved overall Sleeping better Had urinary retention requiring in and out caths Confused but redirectable 01/24/2021: Pt very confused Had an in-and-out catheter at 6:00 this morning Voiding 300 at a time Zyprexa at night 01/23/21: Pt doing very well medically but he is very difficult to redirect Hgb 10 One on one sitter now Ativan and Xanax given last night Zyprexa helped im sleep until 3:00 In and out caths ordered by urology consults Review of Systems General: Fatigue, Malaise Genitourinary: Retention Neurological: Confusion Objective Exam Vital Signs Vital Signs Date Time Temp Pulse Resp B/P (MAP) Pulse Ox O2 Delivery O2 Flow Rate FiO2 02/04/21 20:08 36.2 78 16 142/77 (98) 97 Room Air Capillary Refill : General Appearance: No Apparent Distress, WD/WN, Chronically ill, Thin HEENT: PERRL/EOMI, Normal ENT Inspection, Pharynx Normal Neck: Full Range of Motion, Normal Inspection, Non Tender, Supple, Carotid Bruit Respiratory: Chest Non Tender, Lungs Clear, Normal Breath Sounds, No Accessory Muscle Use, No Respiratory Distress Cardiovascular: Regular Rate, Rhythm, No Edema, No Gallop, No JVD, No Murmur, Normal Peripheral Pulses Gastrointestinal: Normal Bowel Sounds, No Organomegaly, No Pulsatile Mass, Non Tender, Soft Back: Normal Inspection, No CVA Tenderness, No Vertebral Tenderness Extremity: Normal Capillary Refill, Normal Inspection, Normal Range of Motion, Non Tender, No Calf Tenderness, No Pedal Edema Neurologic/Psychiatric: Alert, No Motor/Sensory Deficits, Normal Mood/Affect, Abnormal Gait, Disoriented, Motor Weakness Skin: Normal Color, Warm/Dry Lymphatic: No Adenopathy Results/Procedures Lab Patient resulted labs reviewed. FIM Transfers Therapy Code Descriptions/Definitions Functional Benzie Measure: 0=Not Assessed/NA 4=Minimal Assistance 1=Total Assistance 5=Supervision or Setup 2=Maximal Assistance 6=Modified Benzie 3=Moderate Assistance 7=Complete IndependenceSCALE: Activities may be completed with or without assistive devices. 7-Sxoutfdxgq-zdiqymh completes the activity by him/herself with no assistance from a helper. 5-Set-up or Clean-up Assistance-helper sets up or cleans up; patient completes activity. Clif[place] assists only prior to or following the activity. 4-Supervision or Touching Assistance-helper provides verbal cues and/or touching/steadying and/or contact guard assistance as patient completes activity. Assistance may be provided throughout the activity or intermittently. 3-Partial/Moderate Assistance-helper does LESS THAN HALF the effort. Clifton lifts, holds or supports trunk or limbs, but provides less than half the effort. 2-Substantial/Maximal Assistance-helper does MORE THAN HALF the effort. [place] lifts or holds trunk or limbs and provides more than half the effort. 4-Otgbmubab-xbxwow does ALL the effort. Patient does none of the effort to complete the activity. Or, the assistance of 2 or more helpers is required for the patient to complete the activity. If activity was not attempted, code reason: 7-Patient Refused. 9-Not Applicable-not attempted and the patient did not perform the activity before the current illness, exacerbation or injury. 10-Not Attempted due to Environmental Limitations-(lack of equipment, weather restraints, etc.). 88-Not Attempted due to Medical Conditions or Safety Concerns. Roll Left to Right (QC): 6 Sit to Lying (QC): 6 Sit to Stand (QC): 5 Chair/Hdf-gt-Lmiam Xfer(QC): 5 Car Transfer (QC): 5 Gait Training Does the Patient Walk?: Yes Distance: 450' Walk 10 feet (QC): 5 Walk 50 ft with 2 Turns(QC): 5 Walk 150 ft (QC): 5 Walking 10ft/uneven surface-QC: 5 Gait Persons Needed: 1 Gait Assistive Device: FWW Wheelchair Training Does the Pt Use a Wheelchair?: No Wheel 50 ft with 2 turns (QC): 9 Wheel 150 ft (QC): 9 Stair Training Stair Training: Handrails/: 2 handrails #of Steps: 8 1 Step (curb) (QC): 5 4 Steps (QC): 5 12 Steps (QC): 7 Stairs: Pattern: Reciprocal Balance Picking up an Object (QC): 88 ADL-Treatment Eating (QC): 6 Oral Hygiene (QC): 4 (Supervision standing at sink) Shower/Bathe Self (QC): 4 (Supervision in stand. Pt able to wash/dry all parts) Upper Body Dressing (QC): 5 (set up) Lower Body Dressing (QC): 4 (supervision in stand for pant hike) On/Off Footwear (QC): 6 (IND with gripper socks and shoes) Toileting Hygiene (QC): 4 (supervision in stand, pt able to manage hygiene and pant hike) Toilet Transfer (QC): 4 (supervision) Assessment/Plan Assessment and Plan Assess & Plan/Chief Complaint Assessment: Hemorrhagic stroke Encephalopathy Urinary retention Pulled Sahu catheter out bulb intact upon arrival on 01/22/2021 Hypertension Hyperlipidemia Plan: Aggressive rehabilitation Urology consult Antipsychotics for encephalopathy 01/23/21: Monitor confusion Zyprexa and anti-psychotics 01/24/2021: Supportive care Confusion management 01/25/2021: Urinary retention management Urology appreciated Confusion is improved 01/26/2021: Supportive care Sitter required Fall risk 01/27/21: Monitor closely Fall risk 01/28/2021: Monitor closely May need skilled care 01/29/2021: Supportive care Sitter 01/30/2021: Continue urinary retention management Urology is appreciated 01/31/2021: In and out cath Supportive care 02/01/2021: Urinary retention management Monitor closely 02/02/2021: Supportive care Disposition pending 02/03/2021: Cystoscopy today Supportive care 02/04/2021: Sahu cath to remain indwelling until sees Dr. Busby (1) Hemorrhagic stroke RIGOBERTO HODGES DO Feb 04, 2021 21:03
[2021-02-04] MEDS ORDERED: DOXA8TAB73 PO (21:10)
[2021-02-04] MEDS ORDERED: OLN5T PO (21:10)
[2021-02-04] MEDS ORDERED: BETH50TA2 PO (21:10)
[2021-02-04] MEDS ORDERED: ALPR.25T PO (21:10)
[2021-02-04] MEDS ORDERED: LOSA50TA63 PO ×2 (21:10)
[2021-02-04] MEDS ORDERED: FAMO20TA3 PO (21:10)
[2021-02-04] MEDS ORDERED: ISOS30TA82 PO (21:10)
[2021-02-04] MEDS ORDERED: AMLO-250 PO (21:10)
[2021-02-04] MEDS ORDERED: ATOR40TA70 PO (21:10)
[2021-02-04] MEDS ORDERED: LEVE500T6 PO (21:10)
[2021-02-04] MEDS ORDERED: TMSL.4C PO (21:10)
[2021-02-04] MEDS ORDERED: CLOP75TA28 PO (21:10)
--- NOTE | 2021-02-04 21:15 | D/C HH Face to Face Order ---
D/C Face to Face Orders Reconcile Patient Problems Problems Reviewed?: Yes Instructions for Patient [facility] Patient Instructions/FollowUp: PCP [address] Busby in 2 weeks Physician to follow Patient: PCP Discharge Diet for Home: No Restrictions Patient Problems: CVA Patient Data-Allergies,Ht & Wt Patient Allergies: Coded Allergies: No Known Drug Allergies (Unverified , 01/22/21) Home Health Need/Face to Face Date of Face to Face: Feb 04, 2021 Clinical Findings: Instability, Muscle weakness, Unsteady gait I have seen Pt oiap-so-fmvy: Yes Discharged To: Home Diagnosis/Conditions: CVA Patient is Homebound due to: CognItive deficits, Maikol fall risk due to instabilty, Muscle weakness Homebound Status Due to the above stated illness, injury or surgical procedure (medical condition or diagnosis) and associated clinical findings, the patient is homebound because of his/her inability to leave home except with aid of a supportive device and/or person AND leaving the home requires a considerable and taxing effort or is medically contraindicated. Pt req the following assistanc: [facility] Nursing Orders Home Health Services Order: Nursing Services (catheter care), Wholesale Manager-Evaluate & Treat, Physical Therapy-Evaluate & Treat Certify Stmt I certify that this patient is under my care and that I, a nurse practitioner or a physician; a employment assistant working with me, had a face to face encounter that - meets the physician face to face encounter requirements with this patient as dated. RIGOBERTO HODGES DO Feb 04, 2021 21:15
[2021-02-04] MEDS: OLANZapine 5 MG (ZyPREXA) TAB PO SCH (21:40)
--- NOTE | 2021-02-05 05:24 | Discharge Summary ---
Diagnosis/Chief Complaint Date of Admission Jan 22, 2021 at 15:26 Date of Discharge Discharge Date: Feb 05, 2021 Discharge Diagnosis Assessment: Hemorrhagic stroke Encephalopathy Urinary retention Pulled Sahu catheter out bulb intact upon arrival on 01/22/2021 Hypertension Hyperlipidemia Plan: Aggressive rehabilitation Urology consult Antipsychotics for encephalopathy 01/23/21: Monitor confusion Zyprexa and anti-psychotics 01/24/2021: Supportive care Confusion management 01/25/2021: Urinary retention management Urology appreciated Confusion is improved 01/26/2021: Supportive care Sitter required Fall risk 01/27/21: Monitor closely Fall risk 01/28/2021: Monitor closely May need skilled care 01/29/2021: Supportive care Sitter 01/30/2021: Continue urinary retention management Urology is appreciated 01/31/2021: In and out cath Supportive care 02/01/2021: Urinary retention management Monitor closely 02/02/2021: Supportive care Disposition pending 02/03/2021: Cystoscopy today Supportive care 02/04/2021: Sahu cath to remain indwelling until sees Dr. Busby Discharge Summary Discharge Physical Examination Allergies: Coded Allergies: No Known Drug Allergies (Unverified , 01/22/21) Vitals & I&Os Vital Signs Date Time Temp Pulse Resp B/P (MAP) Pulse Ox O2 Delivery O2 Flow Rate FiO2 02/05/21 12:50 36.2 71 14 149/79 96 Room Air General Appearance: Alert, Cooperative Respiratory: Clear to Auscultation Cardiovascular: Regular Rate Neuro: Strength at 5/5 X4 Ext Hospital Course Was the Problem List Reviewed?: Yes Hospital Course: Pt had a lengthy hospital course for two weeks after hemorrhagic stroke. He did have a lot of confusion that required a sitter due to significant fall risk. He overall did well, BP remained stable, medication was reviewed, all sent after triple checked to the pharmacy and pt was deemed stable for DC with home health with an indwelling catheter due to severe retention managed by Dr. Busyb who will see him in two weeks in his office. Labs (last 24 hrs) Laboratory Tests 01/23/21 05:37: White Blood Count 9.3, Red Blood Count 3.27L, Hemoglobin 10.0L, Hematocrit 29L, Mean Corpuscular Volume 90, Mean Corpuscular Hemoglobin 31, Mean Corpuscular Hemoglobin Concent 34, Red Cell Distribution Width 12.5, Platelet Count 327, Mean Platelet Volume 9.8, Immature Granulocyte % (Auto) 0, Neutrophils (%) (Auto) 62, Lymphocytes (%) (Auto) 25, Monocytes (%) (Auto) 10, Eosinophils (%) (Auto) 3, Basophils (%) (Auto) 1, Neutrophils # (Auto) 5.7, Lymphocytes # (Auto) 2.3, Monocytes # (Auto) 0.9, Eosinophils # (Auto) 0.2, Basophils # (Auto) 0.1, Immature Granulocyte # (Auto) 0.0, Sodium Level 135, Potassium Level 4.2, Chloride Level 102, Carbon Dioxide Level 22, Anion Gap 11, Blood Urea Nitrogen 23H, Creatinine 1.18, Estimat Glomerular Filtration Rate 61, BUN/Creatinine Ratio 19, Glucose Level 93, Calcium Level 9.2, Corrected Calcium 9.6, Total Bilirubin 0.5, Aspartate Amino Transf (AST/SGOT) 25, Alanine Aminotransferase (ALT/SGPT) 36, Alkaline Phosphatase 72, Total Protein 6.9, Albumin 3.5 01/26/21 06:25: White Blood Count 8.5, Red Blood Count 3.06L, Hemoglobin 9.4L, Hematocrit 27L, Mean Corpuscular Volume 90, Mean Corpuscular Hemoglobin 31, Mean Corpuscular Hemoglobin Concent 34, Red Cell Distribution Width 12.5, Platelet Count 311, Mean Platelet Volume 10.0, Immature Granulocyte % (Auto) 1, Neutrophils (%) (Auto) 64, Lymphocytes (%) (Auto) 21, Monocytes (%) (Auto) 10, Eosinophils (%) (Auto) 3, Basophils (%) (Auto) 1, Neutrophils # (Auto) 5.4, Lymphocytes # (Auto) 1.8, Monocytes # (Auto) 0.8, Eosinophils # (Auto) 0.3, Basophils # (Auto) 0.1, Immature Granulocyte # (Auto) 0.0, Sodium Level 138, Potassium Level 4.2, Chloride Level 103, Carbon Dioxide Level 21, Anion Gap 14, Blood Urea Nitrogen 21H, Creatinine 1.10, Estimat Glomerular Filtration Rate 66, BUN/Creatinine Ratio 19, Glucose Level 96, Calcium Level 9.2, Corrected Calcium 9.6, Total Bilirubin 0.5, Aspartate Amino Transf (AST/SGOT) 24, Alanine Aminotransferase (ALT/SGPT) 29, Alkaline Phosphatase 74, Total Protein 6.5, Albumin 3.5 02/02/21 06:56: White Blood Count 7.6, Red Blood Count 3.30L, Hemoglobin 10.0L, Hematocrit 30L, Mean Corpuscular Volume 90, Mean Corpuscular Hemoglobin 30, Mean Corpuscular Hemoglobin Concent 34, Red Cell Distribution Width 13.1, Platelet Count 211, Mean Platelet Volume 10.2, Immature Granulocyte % (Auto) 0, Neutrophils (%) (Auto) 58, Lymphocytes (%) (Auto) 26, Monocytes (%) (Auto) 9, Eosinophils (%) (Auto) 5, Basophils (%) (Auto) 1, Neutrophils # (Auto) 4.4, Lymphocytes # (Auto) 2.0, Monocytes # (Auto) 0.7, Eosinophils # (Auto) 0.4H, Basophils # (Auto) 0.1, Immature Granulocyte # (Auto) 0.0, Sodium Level 139, Potassium Level 4.0, Chloride Level 105, Carbon Dioxide Level 23, Anion Gap 11, Blood Urea Nitrogen 18, Creatinine 1.34H, Estimat Glomerular Filtration Rate 53, BUN/Creatinine Ratio 13, Glucose Level 90, Calcium Level 9.1, Corrected Calcium 9.4, Total Bilirubin 0.5, Aspartate Amino Transf (AST/SGOT) 18, Alanine Aminotransferase (ALT/SGPT) 19, Alkaline Phosphatase 67, Total Protein 6.5, Albumin 3.6 Pending Labs Laboratory Tests 01/23/21 05:37: White Blood Count 9.3, Red Blood Count 3.27, Hemoglobin 10.0, Hematocrit 29, Mean Corpuscular Volume 90, Mean Corpuscular Hemoglobin 31, Mean Corpuscular Hemoglobin Concent 34, Red Cell Distribution Width 12.5, Platelet Count 327, Mean Platelet Volume 9.8, Immature Granulocyte % (Auto) 0, Neutrophils (%) (Auto) 62, Lymphocytes (%) (Auto) 25, Monocytes (%) (Auto) 10, Eosinophils (%) (Auto) 3, Basophils (%) (Auto) 1, Neutrophils # (Auto) 5.7, Lymphocytes # (Auto) 2.3, Monocytes # (Auto) 0.9, Eosinophils # (Auto) 0.2, Basophils # (Auto) 0.1, Immature Granulocyte # (Auto) 0.0, Sodium Level 135, Potassium Level 4.2, Chloride Level 102, Carbon Dioxide Level 22, Anion Gap 11, Blood Urea Nitrogen 23, Creatinine 1.18, Estimat Glomerular Filtration Rate 61, BUN/Creatinine Ratio 19, Glucose Level 93, Calcium Level 9.2, Corrected Calcium 9.6, Total Bilirubin 0.5, Aspartate Amino Transf (AST/SGOT) 25, Alanine Aminotransferase (ALT/SGPT) 36, Alkaline Phosphatase 72, Total Protein 6.9, Albumin 3.5 01/26/21 06:25: White Blood Count 8.5, Red Blood Count 3.06, Hemoglobin 9.4, Hematocrit 27, Mean Corpuscular Volume 90, Mean Corpuscular Hemoglobin 31, Mean Corpuscular Hemoglobin Concent 34, Red Cell Distribution Width 12.5, Platelet Count 311, Mean Platelet Volume 10.0, Immature Granulocyte % (Auto) 1, Neutrophils (%) (Auto) 64, Lymphocytes (%) (Auto) 21, Monocytes (%) (Auto) 10, Eosinophils (%) (Auto) 3, Basophils (%) (Auto) 1, Neutrophils # (Auto) 5.4, Lymphocytes # (Auto) 1.8, Monocytes # (Auto) 0.8, Eosinophils # (Auto) 0.3, Basophils # (Auto) 0.1, Immature Granulocyte # (Auto) 0.0, Sodium Level 138, Potassium Level 4.2, Chloride Level 103, Carbon Dioxide Level 21, Anion Gap 14, Blood Urea Nitrogen 21, Creatinine 1.10, Estimat Glomerular Filtration Rate 66, BUN/Creatinine Ratio 19, Glucose Level 96, Calcium Level 9.2, Corrected Calcium 9.6, Total Bilirubin 0.5, Aspartate Amino Transf (AST/SGOT) 24, Alanine Aminotransferase (ALT/SGPT) 29, Alkaline Phosphatase 74, Total Protein 6.5, Albumin 3.5 02/02/21 06:56: White Blood Count 7.6, Red Blood Count 3.30, Hemoglobin 10.0, Hematocrit 30, Mean Corpuscular Volume 90, Mean Corpuscular Hemoglobin 30, Mean Corpuscular Hemoglobin Concent 34, Red Cell Distribution Width 13.1, Platelet Count 211, Mean Platelet Volume 10.2, Immature Granulocyte % (Auto) 0, Neutrophils (%) (Auto) 58, Lymphocytes (%) (Auto) 26, Monocytes (%) (Auto) 9, Eosinophils (%) (Auto) 5, Basophils (%) (Auto) 1, Neutrophils # (Auto) 4.4, Lymphocytes # (Auto) 2.0, Monocytes # (Auto) 0.7, Eosinophils # (Auto) 0.4, Basophils # (Auto) 0.1, Immature Granulocyte # (Auto) 0.0, Sodium Level 139, Potassium Level 4.0, Chloride Level 105, Carbon Dioxide Level 23, Anion Gap 11, Blood Urea Nitrogen 18, Creatinine 1.34, Estimat Glomerular Filtration Rate 53, BUN/Creatinine Ratio 13, Glucose Level 90, Calcium Level 9.1, Corrected Calcium 9.4, Total Bilirubin 0.5, Aspartate Amino Transf (AST/SGOT) 18, Alanine Aminotransferase (ALT/SGPT) 19, Alkaline Phosphatase 67, Total Protein 6.5, Albumin 3.6 Discharge Home Medications: Active Scripts Active Xanax (Alprazolam) 0.25 Mg Tablet 0.25 Mg PO Q8H Bethanechol Chloride 50 Mg Tablet 25 Mg PO ACHS Olanzapine 5 Mg Tablet 5 Mg PO HS Levetiracetam 500 Mg Tablet 500 Mg PO Q12H Amlodipine Besylate 5 Mg Tablet 5 Mg PO DAILY Flomax (Tamsulosin HCl) 0.4 Mg Cap 0.4 Mg PO BID Losartan Potassium 50 Mg Tablet 25 Mg PO HS TAKES 0.5 OF A 50MG TAB Losartan Potassium 50 Mg Tablet 50 Mg PO DAILY Clopidogrel (Clopidogrel Bisulfate) 75 Mg Tablet 75 Mg PO DAILY Doxazosin Mesylate 8 Mg Tablet 8 Mg PO DAILY Isosorbide Mononitrate ER (Isosorbide Mononitrate) 30 Mg Tab.er.24h 30 Mg PO DAILY Atorvastatin Calcium 40 Mg Tablet 40 Mg PO DAILY Acid Assistant Tennis Coach (FAMOTIDINE) (Famotidine) 20 Mg Tablet 20 Mg PO DAILY Reported Cetirizine HCl 10 Mg Tablet 10 Mg PO DAILY Instructions to patient/family Please see electronic discharge instructions given to patient. Diagnosis/Problems Diagnosis/Problems (1) Hemorrhagic stroke RIGOBERTO HODGES DO Feb 05, 2021 05:24
[2021-02-05] MEDS: BETHANECHOL 25 MG (URECHOLINE) TAB PO SCH (06:28)
[2021-02-05 07:31] VITALS: BP 149/79
[2021-02-05] MEDS: LORATADINE (CLARITIN) 10 MG TAB PO SCH (07:54)
[2021-02-05] MEDS: TAMSULOSIN 0.4 MG (FLOMAX) CAP PO SCH (07:54)
[2021-02-05] MEDS: DOCUSATE SODIUM 100 MG (COLACE) CAP PO SCH (07:54)
[2021-02-05] MEDS: CLOPIDOGREL 75 MG (PLAVIX) TABLET PO SCH (07:54)
[2021-02-05] MEDS: doxAzosin 4 MG (CARDURA) TAB PO SCH (07:54)
[2021-02-05] MEDS: amLODIPine 5 MG (NORVASC) TAB PO SCH (07:54)
[2021-02-05] MEDS: SENNA W/DOCUSATE (SENOKOT S) TABLET PO SCH (07:54)
[2021-02-05] MEDS: FAMOTIDINE 20 MG (PEPCID) TABLET PO SCH (07:55)
[2021-02-05] MEDS: ISOSORBIDE MONONITRATE 30 MG (IMDUR) TAB PO SCH (07:55)
[2021-02-05] MEDS: LOSARTAN 50 MG (COZAAR) TAB PO SCH (07:55)
[2021-02-05] MEDS: polyethylene glycoL POWDER 17 GM (MIRALAX) PACK PO SCH (08:02)
--- NOTE | 2021-02-05 10:08 | Therapy Team Discharge Summary ---
Therapy Discharge Summary Discharge Recommendations Date of Discharge Occupational Therapy Decreased Activ Tolerance, Decreased Safety Aware, Decreased UE Strength, Impaired Funct Balance, Impaired I ADL's, Impaired Self-Care Skills Speech-Language Pathology The patient was admitted to the ARU due to debility. The patient was given the SLUMS with moderate to severe dementia range of function. The patient received skilled ST with focus on safety awareness and orientation. The patient has made mild progress. Patient will be returning to his home today. He lives there with his and disabled son. PT Intermediate Goals Professor Of Criminal Justice Goals PT Professor Of Criminal Justice Goals Time Frame: Feb 12, 2021 Roll Left to Right (QC): 6 Sit to Lying (QC): 6 Lying-Sitting on Side/Bed(QC): 6 Sit to Stand (QC): 5 Chair/Ddf-cn-Qjynt Xfer(QC): 5 Car Transfer (QC): 5 Does the Patient Walk: Yes Walk 10 feet (QC): 5 Walk 10ft-Uneven Surface(QC): 5 Walk 50ft with 2 Turns (QC): 5 Walk 150 ft (QC): 5 Wheel 50 feet with 2 turns (QC: 9 1 Step (curb) (QC): 4 4 Steps (QC): 4 12 Steps (QC): 88 Picking up an Object (QC): 4 OT Professor Of Criminal Justice Goals Professor Of Criminal Justice Goals Time Frame: Feb 20, 2021 Eating (QC): 6 (met) Oral Hygiene (QC): 6 (not met, supervision) Shower/Bathe Self (QC): 6 (not met, supervision) Upper Body Dressing (QC): 6 (not met, set up) Lower Body Dressing (QC): 6 (not met, supervision) On/Off Footwear (QC): 6 (met) Toileting Hygiene (QC): 6 (not met, supervision) Toilet/Commode Transfer (QC): 5 Additional Goals: 1-Demonstrate ADL Tasks, 2-Verbalize Understanding, 3- ImproveStrength/Rizwan 1=Demonstrate adherence to instructed precautions during ADL tasks. 2=Patient will verbalize/demonstrate understanding of assistive device s/modifications for ADL. 3=Patient will improve strength/tolerance for activity to enable patient to perform ADL's. Speech Intermediate Goals Professor Of Criminal Justice Goals Patient will improve cognitive function for safety and orientation. SAMIR GARCIA Feb 05, 2021 10:08
[2021-02-05] MEDS ORDERED: ALPR0.25 PO (11:41)
[2021-02-05 12:50] VITALS: BP 149/79
--- NOTE | 2021-02-05 14:29 | Therapy Team Discharge Summary ---
Therapy Discharge Summary Discharge Recommendations Date of Discharge Feb 05, 2021 at 12:20 Physical Therapy Patient came to rehab with IV/IP. Upon evaluation patient performed bed mobility and supine <-> sit with independence, sit <-> stand and transfers CGA, car transfer CGA, ambulated 150' with CGA (including 50' with at least 2 turns of 90 degrees and 10' over an uneven surface), went up and down 1 step using a rolling walker with CGA, and picked up an object from the floor with CGA. Patient has been performing bed mobility and transfer training, balance and e ndurance training, functional strengthening, stair training, gait training, and education. 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 Now, patient performs bed mobility and supine <-> sit with independence, sit <-> stand and transfers with setup, car transfer with setup, ambulates 750' with a rolling walker with setup (including 50' with at least 2 turns of 90 degrees and 10' over an uneven surface), and can go up and down 8 steps using 2 handrails with setup. Patient was discharged from this facility today and will be discharged from PT at this time. Occupational Therapy Decreased Activ Tolerance, Decreased Safety Aware, Decreased UE Strength, Impaired Funct Balance, Impaired I ADL's, Impaired Self-Care Skills PT Usp Goals Usp Goals PT Usp Goals Time Frame: Feb 12, 2021 Roll Left to Right (QC): 6 Sit to Lying (QC): 6 Lying-Sitting on Side/Bed(QC): 6 Sit to Stand (QC): 5 Chair/Yys-po-Dovhc Xfer(QC): 5 Car Transfer (QC): 5 Does the Patient Walk: Yes Walk 10 feet (QC): 5 Walk 10ft-Uneven Surface(QC): 5 Walk 50ft with 2 Turns (QC): 5 Walk 150 ft (QC): 5 Wheel 50 feet with 2 turns (QC: 9 1 Step (curb) (QC): 4 4 Steps (QC): 4 12 Steps (QC): 88 Picking up an Object (QC): 4 OT Usp Goals Remote Sensing Engineer Goals Time Frame: Feb 20, 2021 Eating (QC): 6 (met) Oral Hygiene (QC): 6 (not met, supervision) Shower/Bathe Self (QC): 6 (not met, supervision) Upper Body Dressing (QC): 6 (not met, set up) Lower Body Dressing (QC): 6 (not met, supervision) On/Off Footwear (QC): 6 (met) Toileting Hygiene (QC): 6 (not met, supervision) Toilet/Commode Transfer (QC): 5 Additional Goals: 1-Demonstrate ADL Tasks, 2-Verbalize Understanding, 3-Imp roveStrength/Rizwan 1=Demonstrate adherence to instructed precautions during ADL tasks. 2=Patient will verbalize/demonstrate understanding of assistive devices/modifications for ADL. 3=Patient will improve strength/tolerance for activity to enable patient to perform ADL's. Speech Remote Sensing Engineer Goals Usp Goals Patient will improve cognitive function for safety and orientation. MAC GONZALEZ PT Feb 05, 2021 14:29
--- NOTE | 2021-02-05 14:56 | Therapy Team Discharge Summary ---
Therapy Discharge Summary Discharge Recommendations Date of Discharge Feb 05, 2021 at 12:20 Occupational Therapy Pt admitted to ARU with IVH/IVP. At PLOF, pt was independent with ADLs and fun ctional mobility, no AD/AE. Upon initial evaluation, pt was independent with eating, min A oral care, min A showering, SBA upper body dressing, min A lower body dressing, SBA footwear, and min A toileting. OT tx focused on increasing BUE strength and activity tolerance and increasing safety and independence with functional mobility and ADLs. At discharge, pt independent with eating, supervision oral care, supervision showering, set up upper body dressing, supervision lower body dressing, IND footwear and supervision toileting. Pt made functional progress towards goals, attaining IND level with eating and footwear. Pt discharged from facility, d/c from OT Decreased Activ Tolerance, Decreased Safety Aware, Decreased UE Strength, Impaired Funct Balance, Impaired I ADL's, Impaired Self-Care Skills PT Outfitter Cabin Goals Chcf Goals PT Outfitter Cabin Goals Time Frame: Feb 12, 2021 Roll Left to Right (QC): 6 Sit to Lying (QC): 6 Lying-Sitting on Side/Bed(QC): 6 Sit to Stand (QC): 5 Chair/Pxf-sz-[id number] Xfer(QC): 5 Car Transfer (QC): 5 Does the Patient Walk: Yes Walk 10 feet (QC): 5 Walk 10ft-Uneven Surface(QC): 5 Walk 50ft with 2 Turns (QC): 5 Walk 150 ft (QC): 5 Wheel 50 feet with 2 turns (QC: 9 1 Step (curb) (QC): 4 4 Steps (QC): 4 12 Steps (QC): 88 Picking up an Object (QC): 4 OT Outfitter Cabin Goals Chcf Goals Time Frame: Feb 20, 2021 Eating (QC): 6 (met) Oral Hygiene (QC): 6 (not met, supervision) Shower/Bathe Self (QC): 6 (not met, supervision) Upper Body Dressing (QC): 6 (not met, set up) Lower Body Dressing (QC): 6 (not met, supervision) On/Off Footwear (QC): 6 (met) Toileting Hygiene (QC): 6 (not met, supervision) Toilet/Commode Transfer (QC): 5 Additional Goals: 1-Demonstrate ADL Tasks, 2-Verbalize Understanding, 3- ImproveStrength/Rizwan 1=Demonstrate adherence to instructed precautions during ADL tasks. 2=Patient will verbalize/demonstrate understanding of assistive devices/modifications for ADL. 3=Patient will improve strength/tolerance for activity to enable patient to perform ADL's. Speech Chcf Goals Chcf Goals Patient will improve cognitive function for safety and orientation. ELISEO TEJADA OT Feb 05, 2021 14:56
== END 2021-02-05 12:20 | disposition home health service (06) | DRG 57 ==
LOC: EDBD 15:26
PROVIDERS: ADMIT Internal Medicine; ATTEND Internal Medicine
DX: I69.154 Hemiplegia and hemiparesis following nontraumatic intracerebral hemorrhage affecting left non-dominant side (principal); G93.40 Encephalopathy, unspecified; R33.9 Retention of urine, unspecified; D64.9 Anemia, unspecified; R26.81 Unsteadiness on feet; E78.00 Pure hypercholesterolemia, unspecified; E78.5 Hyperlipidemia, unspecified; I10 Essential (primary) hypertension; F41.9 Anxiety disorder, unspecified; F32.9 Major depressive disorder, single episode, unspecified; R41.0 Disorientation, unspecified; N40.1 Benign prostatic hyperplasia with lower urinary tract symptoms; R33.8 Other retention of urine; Z87.891 Personal history of nicotine dependence
CPT/HCPCS: 36415; 80053; 85025

== ENCOUNTER → 2021-02-04 | Day surgery (SDC) | payer MEDICARE ==
[~2021-02-04] MED LIST changes: -ACETAMINOPHEN 325 MG TABLET PO PRN; +ALPR.25T PO; +ALPR0.25 PO; +BETH50TA2 PO; -BISACODYL 10 MG SUPP (DULCOLAX) PR PRN; -CALCIUM CARBONATE 500 MG (TUMS) TAB.CHEW PO PRN; -DOCUSATE SODIUM 100 MG (COLACE) CAP PO PRN; -FLEET ENEMA ADULT 1 EA BTL PR PRN; -LACTULOSE SYRUP 10GM/15ML (ENULOSE) 30ML UDC PO PRN; +LEVE500T6 PO; +LIDOCAINE UROJET 2% GEL 10 ML PKG ONE; -LOPERAMIDE 2 MG (IMODIUM) TABLET PO PRN; +OLN5T PO; -ONDANSETRON 4 MG (ZOFRAN) ORAL DISSOLVE TAB PO PRN; +TMSL.4C PO; -diphenhydrAMINE 25 MG TAB (BENADRYL) PO PRN; -guaiFENesin/CODEINE (ROBITUSSIN AC) 10ML UDC PO PRN
--- NOTE | 2021-02-04 14:36 | OPERATIVE REPORT ---
DATE OF SERVICE: 02/04/2021 PREOPERATIVE DIAGNOSIS: Urinary retention. POSTOPERATIVE DIAGNOSIS: Urinary retention. OPERATION PERFORMED: Cystoscopy. SURGEON: Dexter Lara MD ANESTHESIA: Local. COMPLICATIONS: None. DESCRIPTION OF PROCEDURE: With the patient supine in his bed, genitalia were prepped and draped in the usual sterile fashion. Urethra was infiltrated with 2% lidocaine jelly. Penile clamp was applied. This was then removed, and a flexible cystoscope was introduced under vision. Anterior urethra was normal. The prostate was small with some bladder neck obstruction. Bladder showed some trabeculations, no foreign body, bladder tumor or stone visualized. Ureteric orifices with clear effluxes. Cystoscopy was confirmed in an antegrade fashion and the cystoscope was removed. The patient tolerated the procedure and anesthesia well and remained in his bed in stable condition. PLAN: The patient does not need any surgical procedure. We will continue management with medications and follow with bladder scan and possible postvoid residual check. Job ID: [id number] DocumentID: [id number] Dictated Date: 02/04/2021 10:57:50 Manager Environmental Health Date: 02/04/2021 14:35:14 Dictated By: DEXTER LARA MD
--- OUTSIDE RECORDS SUMMARY | 2021-02-07 01:00 | XMS REPORT ---
Author Author Danny Contreras Organization [facility] Address [address] [place], [place] [address] Care Team Providers Care Forestry Biology Specialist Name Role Phone Keven Contreras PCP Keven Contreras PreferredProvider Allergies and Adverse Reactions Name Reaction Notes No known allergies Plan of Treatment Planned Activity Comments Planned Date Planned Time Plan/Goal MRI BRAIN INC STEM W/WO CONTRAST 12/11/2020 12:00 AM MRI BRAIN INC STEM W/WO CONTRAST 12/15/2020 12:00 AM Medications Active Name Start Date Estimated Completion Date SIG Co mments multivitamin oral tablet take 1 tablet by oral route daily doxazosin oral tablet 8 mg 10/22/2020 04/20/2021 1 PO DAILY losartan oral tablet 50 mg 10/22/2020 04/20/2021 take 1.5 tablet (50 mg) by oral route once daily for 90 days famotidine 20 mg tablet take 1 tablet by oral route daily aspirin 325 mg tablet 12/16/2020 03/16/2021 take 1 tab let by oral route daily for 30 days atorvastatin 40 mg tablet 12/16/2020 03/16/2021 take 1 tablet (40 mg) by oral route once daily for 30 days clopidogrel 75 mg tablet 12/16/2020 03/16/2021 take 1 tablet (75 mg) by oral route once daily for 30 days isosorbide mononitrate ER 30 mg tablet,extended release 24 h r 12/16/2020 03/16/2021 take 1 tablet (30 mg) by oral route once daily in the morning for 30 days Name Start Date Expiration Date SIG Comments ProAir HFA 90 mcg/actuation inhalation HFA aerosol inhaler 201706/11/2018 inhale 1 - 2 puffs (90 - 180 mcg) by inhalation route every 4-6 hours as needed for 30 days Flonase Allergy Relief 50 mcg/actuation nasal spray,suspensi on 03/13/2018 05/12/2018 1 PUFF EACH NOSTRIL 2XD AND THEN RINSE THROAT amoxicillin 875 mg oral tablet 04/11/2018 04/21/2018 t chris 1 tablet (875 mg) by oral route every 12 hours for 10 days Symbicort 160-4.5 mcg/actuation inhalation HFA aerosol inhal er 11/14/2019 11/29/2019 inhale1 puffs by inhalation route 4 carina es per day AND RINSE THROAT AFTER USING Discontinued Name Start Date Discontinued Date SIG Comments ProAir HFA 90 mcg/actuation inhalation HFA aerosol inhaler 201606/23/2017 Zithromax Z-Rajinder 250 mg oral tablet 04/13/2017 07/05/2017 take 2 tablets (500 mg) by oral route once daily for 1 day then 1 tablet (250 mg) by oral route once daily for 4 days Zithromax 250 mg oral tablet 07/05/2017 07/20/2017 renetta e 2 tablets (500 mg) by oral route once daily for 1 day then 1 tablet (250 mg) by oral route once daily for 4 days Singulair 10 mg oral tablet 03/29/2019 10/08/2019 take 1 tablet (10 mg) by oral route once daily in the evening for 90 days FDA INCREASES CHANCE OF SUICIDE TENDENCIES hydrocodone-acetaminophen 7.5-325 mg oral tablet 02/15/20202020 Carafate oral tablet 1 gram 11/24/2020 12/15/2020 take 1 tablet (1 gram) by oral route 2 times per day on an empty stomach Problem List Description Status Onset Hyperlipidemia Active 10/24/2018 Allergic rhinitis Active 10/24/2018 BPH NOS w/o ur obs/LUTS Active 10/24/2018 HTN (hypertension), benign Active 10/24/2018 Vital Signs Date Time BP-Sys(mm[Hg] BP-Chata(mm[Hg]) HR(bpm) RR(rpm) Temp WT HT HC BMI BSA BMI Percentile O2 Sat(%) 12/15/2020 2:47:00 PM 120 mm[Hg] 68 mm[Hg] 86 {beats}/min 18 rpm 98.2 F 159.312 lbs 67 in 24.9516 kg/m2 1.8483 m2 98 % 11/24/2020 9:48:00 AM 180 mm[Hg] 104 mm[Hg] 80 {beats}/min 20 rpm 99 F 158 lbs 67 in 24.75 kg/m2 1.84 m2 97 % 10/22/2020 9:40:00 AM 138 mm[Hg] 90 mm[Hg] 103 {beats}/min 18 rpm 98.4 F 162 lbs 66 in 26.1472 kg/m2 1.8498 m2 98 % 02/26/2020 8:41:00 AM 148 mm[Hg] 92 mm[Hg] 82 {beats}/min 18 rpm 98.4 F 157 lbs 67 in 24.59 kg/m2 1.83 m2 95 % 02/18/2020 10:23:00 AM 158 mm[Hg] 92 mm[Hg] 70 {beats}/min 18 rpm 99 F 160 lbs 67 in 25.0593 kg/m2 1.8522 m2 98 % 11/14/2019 8:32:00 AM 114 mm[Hg] 70 mm[Hg] 96 {beats}/min 18 rpm 98.4 F 158 lbs 67 in 24.75 kg/m2 1.84 m2 96 % 10/24/2018 8:35:00 AM 128 mm[Hg] 88 mm[Hg] 83 {beats}/min 18 rpm 99 F 161.375 lbs 67 in 25.2746 kg/m2 1.8602 m2 95 % 04/11/2018 1:37:00 PM 128 mm[Hg] 80 mm[Hg] 94 {beats}/min 18 rpm 98.6 F 154 lbs 67 in 24.12 kg/m2 1.82 m2 96 % 07/20/2017 8:52:00 AM 130 mm[Hg] 82 mm[Hg] 80 {beats}/min 18 rpm 97.6 F 153 lbs 67 in 23.9629 kg/m2 1.8113 m2 98 % 07/05/2017 11:05:00 AM 130 mm[Hg] 88 mm[Hg] 78 {beats}/min 18 rpm 97.6 F 151 lbs 67 in 23.65 kg/m2 1.80 m2 95 % 04/13/2017 1:48:00 PM 162 mm[Hg] 100 mm[Hg] 84 {beats}/min 18 rpm 97.4 F 147.5 lbs 67 in 23.1015 kg/m2 1.7784 m2 98 % Social History Name Description Comments Tobacco Current every day smoker Alcohol Current every day Caffeine Never retired History of Procedures Date Ordered Description Order Status 04/13/2017 12:00 AM THER/PROPH/DIAG INJ SC/IM Reviewed 04/13/2017 12:00 AM Kenalog 40mg Injection Reviewed 07/05/2017 12:00 AM THER/PROPH/DIAG INJ SC/IM Reviewed 07/05/2017 12:00 AM Decadron 4mg Injection Reviewed 07/05/2017 12:00 AM Depo-Medrol 40mg Injection Reviewed 07/20/2017 12:00 AM Annual wellness visit, Medicare *Subsequ ent Visits* Reviewed 07/20/2017 12:00 AM Annual depression screening, 15 minutes Reviewed 07/20/2017 12:00 AM LIPID PANEL Reviewed 07/20/2017 12:00 AM COMPLETE CBC W/AUTO DIFF WBC Reviewed 07/20/2017 12:00 AM COMPREHEN METABOLIC PANEL Reviewed 07/20/2017 12:00 AM ASSAY OF MAGNESIUM Reviewed 07/20/2017 12:00 AM ASSAY OF PSA TOTAL Reviewed 07/20/2017 12:00 AM COLLECTION VENOUS BLOOD VENIPUNCTURE Rev iewed 10/17/2017 12:00 AM Blood Pressure Check-no charge Reviewed 04/11/2018 12:00 AM THER/PROPH/DIAG INJ SC/IM Reviewed 04/11/2018 12:00 AM Decadron 4mg Injection Reviewed 04/11/2018 12:00 AM Depo-Medrol 40mg Injection Reviewed 06/01/2018 12:00 AM [facility] MEDICARE - flu vaccine administratio n Reviewed 06/01/2018 12:00 AM INFLUENZA VAC 4 VALENT PRSRV FREE 3 YRS PLUS IM Reviewed 10/24/2018 12:00 AM Annual wellness visit, Medicare *Subsequ ent Visits* Reviewed 10/24/2018 12:00 AM Annual depression screening, 15 minutes Reviewed 10/24/2018 12:00 AM LIPID PANEL Reviewed 10/24/2018 12:00 AM COMPLETE CBC W/AUTO DIFF WBC Reviewed 10/24/2018 12:00 AM COMPREHEN METABOLIC PANEL Reviewed 10/24/2018 12:00 AM ASSAY OF PSA TOTAL Reviewed 10/24/2018 12:00 AM COLLECTION VENOUS BLOOD VENIPUNCTURE Rev iewed 10/24/2018 12:00 AM ASSAY OF MAGNESIUM Reviewed 11/14/2019 12:00 AM Annual wellness visit, Medicare *Subsequ ent Visits* Reviewed 11/14/2019 12:00 AM Annual depression screening, 15 minutes Reviewed 11/14/2019 12:00 AM Prostate Cancer Screening Reviewed 11/14/2019 12:00 AM LIPID PANEL Reviewed 11/14/2019 12:00 AM COMPLETE CBC W/AUTO DIFF WBC Reviewed 11/14/2019 12:00 AM COMPREHEN METABOLIC PANEL Reviewed 11/14/2019 12:00 AM ASSAY OF MAGNESIUM Reviewed 11/14/2019 12:00 AM COLLECTION VENOUS BLOOD VENIPUNCTURE Rev iewed 11/14/2019 11:31 AM FALL RISK ASSESSMENT DOCD Reviewed 11/14/2019 11:31 AM SCREEN DEPRESSION PERFORMED Reviewed 02/18/2020 11:00 AM FALL RISK ASSESSMENT DOCD Reviewed 02/18/2020 11:00 AM SCREEN DEPRESSION PERFORMED Reviewed 02/26/2020 9:26 AM FALL RISK ASSESSMENT DOCD Reviewed 02/26/2020 9:26 AM SCREEN DEPRESSION PERFORMED Reviewed 09/25/2020 12:00 AM Moderna Covid-19 Vaccine Reviewed 10/23/2020 12:00 AM Moderna Covid-19 Vaccine Reviewed 11/24/2020 12:00 AM MRI BRAIN STEM W/O & W/DYE Reviewed Results Summary Date and Description Results 07/20/2017 9:30 AM WBC 6.7 RBC 4.57 HGB 15.10 g /dLHCT 44.0 %MCV 96.0 fLMCH 33.0 pgMCHC 34.30 g/dLRDW SD 42 RDW CV 11.90 %MPV 10.10 fLPLT 244 NRBC# 0.00 NRBC% 0.0 %NEUT 62.60 %%LYMP 19.90 %%MONO 12.10 %%EOS 4.0 %%BASO 1.0 %#NEUT 4.19 #LYMP 1.33 #MONO 0.81 #EOS 0.27 #BASO 0.07 MANUAL DIFF NOT IND MAGNESIUM 1.80 mg/dLTRIGLYCERIDES 45.0 mg/dLCHOLESTEROL 165.0 mg/dLHDL 71.0 mg/dLTOT CHOL/HDL 2.3 LDL (CALC) 85.0 mg/dLGLUCOSE 106.0 mg/dLSODIUM 138.0 mmol/LPOTASSIUM 4.50 mmol/LCHLORIDE 103.0 mmol/LCO2 25.0 mmol/LBUN 5.0 mg/dLCREATININE 0.90 mg/dLSGOT/AST 28.0 IU/LSGPT/ALT 18.0 IU/LALK PHOS 73.0 IU/LTOTAL PROTEIN 6.70 g/dLALBUMIN 3.90 g/dLTOTAL BILI 0.70 mg/dLCALCIUM 9.20 mg/dLAGE 67 GFR NonAA 84 GFR AA 102 eGFR >60 mL/min/1.73 m2eGFR AA* >60 PSA TOTAL 3.710 ng/mL 10/24/2018 9:24 AM Falls in last 6 months? No U nsteady or worry about falling? No Fall Risk Assessment Not At Risk During the past month, have you been feeling depressed? No During the past month, have you lost interest in usual activity? No 10/24/2018 4:55 PM PSA TOTAL 0.880 ng/mLMAGNESI UM 2.0 TRIGLYCERIDES 52 CHOLESTEROL 156.0 mg/dLHDL 65 TOT CHOL/HDL 2.4 LDL (CALC) 81 GLUCOSE 105 SODIUM 134 POTASSIUM 4.8 CHLORIDE 100.0 mmol/LCO2 25 BUN 7.0 mg/dLCREATININE 1.10 mg/dLSGOT/AST 38 SGPT/ALT 30 ALK PHOS 88 TOTAL PROTEIN 6.9 ALBUMIN 4.2 TOTAL BILI 0.8 CALCIUM 9.70 mg/dLAGE 68 GFR NonAA 66 GFR AA 80 eGFR 66 eGFR AA* >60 mL/min/1.73 m2WBC 6.3 RBC 5.14 HGB 16.30 g/dLHCT 46.60 %MCV 91.0 fLMCH 31.70 pgMCHC 35.0 g/dLRDW SD 39 fLRDW CV 11.60 %MPV 11.20 fLPLT 226 NRBC# 0.00 NRBC% 0.0 %NEUT 60.3 %LYMP 21.8 %MONO 11.4 %EOS 4.9 %BASO 1.4 #NEUT 3.82 #LYMP 1.38 #MONO 0.72 #EOS 0.31 #BASO 0.09 MANUAL DIFF NOT IND 11/14/2019 8:45 AM WBC 8.3 RBC 5.19 HGB 16.40 g /dLHCT 47.70 %MCV 92.0 fLMCH 31.60 pgMCHC 34.40 g/dLRDW SD 40 fLRDW CV 12.0 %MPV 10.20 fLPLT 256 x10E3/uLNRBC# 0.00 NRBC% 0.0 %NEUT 64.0 %LYMP 20.1 %MONO 10.4 %EOS 3.8 %BASO 1.5 #NEUT 5.28 #LYMP 1.66 #MONO 0.86 #EOS 0.31 #BASO 0.12 MANUAL DIFF NOT IND MAGNESIUM 1.9 TRIGLYCERIDES 71 CHOLESTEROL 163.0 mg/dLHDL 53 TOT CHOL/HDL 3.1 LDL (CALC) 96 GLUCOSE 114 SODIUM 134 POTASSIUM 4.6 CHLORIDE 102.0 mmol/LCO2 23 BUN 11.0 mg/dLCREATININE 1.420 mg/dLSGOT/AST 27 SGPT/ALT 21 ALK PHOS 97 TOTAL PROTEIN 7.0 ALBUMIN 3.9 TOTAL BILI 0.7 CALCIUM 9.40 mg/dLAGE 69 GFR NonAA 49 GFR AA 59 eGFR 49 mL/min/1.73meGFR AA* 59 mL/min/1.73mPSA TOTAL 2.160 ng/mL 11/14/2019 11:31 AM Falls in last 6 months? No U nsteady or worry about falling? No Fall Risk Assessment Not At Risk During the past month, have you been feeling depressed? No During the past month, have you lost interest in usual activity? No 02/18/2020 11:00 AM Falls in last 6 months? Yes Unsteady or worry about falling? No Fall Risk Assessment Not At Risk During the past month, have you been feeling depressed? No During the past month, have you lost interest in usual activity? No 02/26/2020 9:26 AM Falls in last 6 months? Yes Unsteady or worry about falling? No Fall Risk Assessment Not At Risk During the past month, have you been feeling depressed? No During the past month, have you lost interest in usual activity? No History Of Immunizations Name Date Admin Mfg Name Mfg Code Trade Name Lot# Route Inj Vis Given Vis Pub CVX Influenza 06/01/2018 GlaxoSmithKline SKB Flulaval quadrivalent 3 PM59 Intramuscular Right Deltoid 06/01/2018 07/04/2020 158 Covid-19 09/25/2020 [employer]. MOD Moderna COVID-19 Vaccin e [id number] Intramuscular Right Arm 09/25/2020 06/03/2020 207 Covid-19 10/23/2020 Disconnect. MOD [employer] COVID-19 Vaccin e [id number] Intramuscular Right Arm 10/23/2020 06/03/2020 207 History of Past Illness Name Date of Onset Comments Hypertension arthritis Hyperlipidemia 10/24/2018 Allergic rhinitis 10/24/2018 BPH NOS w/o ur obs/LUTS 10/24/2018 HTN (hypertension), benign 10/24/2018 Acute pharyngitis, unspecified etiology Apr 13 2017 1:50PM Acute recurrent pansinusitis Apr 13 2017 1:50PM Hypertension, Benign Essential Apr 13 2017 1:50PM Disorder of both eustachian tubes Apr 13 2017 1:50PM Allergic asthma without complication Apr 13 2017 1:50PM Cough Jul 05 2017 11:11AM Purulent rhinitis Jul 05 2017 11:11AM Acute asthmatic bronchitis Jul 05 2017 11:11AM General medical examination; routine gen eral medical examination at a health care facility Jul 20 2017 8:53AM Essential hypertension Jul 20 2017 8:53AM Mixed hyperlipidemia Jul 20 2017 8:53AM Chronic seasonal allergic rhinitis, unspecified trigger Jul 20 2017 8:53AM BPH NOS w/o ur obs/LUTS Jul 20 2017 8:53AM Hypertension Oct 17 2017 11:10AM Acute bronchitis due to other specified organisms Apr 11 8 1:39PM Acute recurrent pansinusitis Apr 11 2018 1:39PM Hypertension Apr 11 2018 1:39PM Generalized arthritis Apr 11 2018 1:39PM Flu Vaccine Jun 01 2018 11:06AM General medical examination; routine gen eral medical examination at a health care facility Oct 24 2018 8:41AM HTN (hypertension), benign Oct 24 2018 8:41AM BPH NOS w/o ur obs/LUTS Oct 24 2018 8:41AM Allergic rhinitis Oct 24 2018 8:41AM Hyperlipidemia Oct 24 2018 8:41AM General medical examination; routine gen eral medical examination at a health care facility Nov 14 2019 8:33AM Prostate screening Nov 14 2019 8:33AM BPH NOS w/o ur obs/LUTS Nov 14 2019 8:33AM HTN (hypertension), benign Nov 14 2019 8:33AM Hyperlipidemia Nov 14 2019 8:33AM High risk medication use Nov 14 2019 8:33AM COPD (chronic obstructive pulmonary disease) with emphysema Nov 14 2019 8:33AM BPH NOS w/o ur obs/LUTS Feb 18 2020 10:24AM HTN (hypertension), benign Feb 18 2020 10:24AM Rib fractures Feb 18 2020 10:24AM HTN (hypertension), benign Feb 26 2020 8:42AM Hyperlipidemia Feb 26 2020 8:42AM Fracture, ribs Feb 26 2020 8:42AM Encounter for administration of COVID-19 vaccine Sep 26 2020 2:06PM Encounter for administration of COVID-19 vaccine Oct 24 2020 12:14PM BPH NOS w/o ur obs/LUTS Oct 22 2020 9:43AM HTN (hypertension), benign Oct 22 2020 9:43AM Hyperlipidemia Oct 22 2020 9:43AM HTN (hypertension), benign Nov 24 2020 9:50AM Hyperlipidemia Nov 24 2020 9:50AM Confusion Nov 24 2020 9:50AM Epigastric pain Nov 24 2020 9:50AM Confusion Nov 26 2020 1:15PM Confusion Dec 11 2020 3:54PM Abnormal MRI of head Dec 11 2020 3:54PM HTN (hypertension), benign Dec 15 2020 2:49PM CAD (coronary artery disease) Dec 15 2020 2:49PM Abnormal MRI of head Dec 15 2020 2:49PM Payers Insurance Name Company Name Plan Name Plan Number Policy Number [employer] Group Number Start Date Medicare RHC Medicare RH [id number] N/ A Cigna Medicare Supplement Cigna Medicare Supplement [id number] N/A Medicare Part A Medicare - Lab/Xray [id number] N/A Medicare Part B Medicare Of [place] [id number] N/A History of Encounters Visit Date Visit Type Provider 12/15/2020 Office visit Keven Contreras APR N 11/24/2020 Office visit Keven Contreras APR N 10/23/2020 Nurse visit Keven Contreras APR N 10/22/2020 Office visit Keven Contreras APR N 09/25/2020 Nurse visit Keven Contreras APR N 02/26/2020 Office visit Cayla Claire PRN 02/18/2020 Office visit Cayla Claire PRN 02/14/2020 [facility] Sheryl Carmona MD 11/14/2019 Office visit Cayla Claire PRN 10/24/2018 Office visit Cayla Claire PRN 06/01/2018 Nurse visit Cayla Claire PRN 04/11/2018 Office visit Cayla Fang Alethea PRN 07/20/2017 Office visit 07/20/2017 Office visit Cayla Dormanmarlenaviky Alethea PRN 07/05/2017 Office visit Cayla Dormannabeel Claire PRN 04/13/2017 Office visit Cayla Dormannabeel Claire PRN 03/15/2016 [facility] Jose Carmona MD
--- OUTSIDE RECORDS SUMMARY | 2021-02-07 01:00 | XMS REPORT ---
Author Author Danny Contreras Organization [facility] Address [address] [place], [place] [id number] Care Team Providers Care Cotton Program Technician Name Role Phone Keven Contreras PCP Keven Contreras PreferredProvider Allergies and Adverse Reactions Name Reaction Notes No known allergies Plan of Treatment Planned Activity Comments Planned Date Planned Time Plan/Goal MRI BRAIN INC STEM W/WO CONTRAST 12/11/2020 12:00 AM Medications Active Name Start Date Estimated Completion Date SIG Co mments multivitamin oral tablet take 1 tablet by oral route daily doxazosin oral tablet 8 mg 10/22/2020 04/20/2021 1 PO DAILY losartan oral tablet 50 mg 10/22/2020 04/20/2021 take 1.5 tablet (50 mg) by oral route once daily for 90 days atorvastatin 40 mg tablet take 1 tablet ( 40 mg) by oral route once daily clopidogrel 75 mg tablet take 1 tablet (7 5 mg) by oral route once daily isosorbide mononitrate ER 30 mg tablet,extended release 24 hr take 1 tablet (30 mg) by oral route once daily in the morning aspirin 325 mg tablet take 1 tablet by or al route daily for 30 days famotidine 20 mg tablet take 1 tablet by oral route daily Carafate oral tablet 1 gram 11/24/2020 take 1 tablet (1 gram) by oral route 2 times per day on an empty stomach Name Start Date Expiration Date SIG Comments [...] TENDENCIES hydrocodone-acetaminophen 7.5-325 mg oral tablet 02/15/20202020 Problem List Description Status Onset Hyperlipidemia Active 10/24/2018 Allergic rhinitis Active 10/24/2018 BPH NOS w/o ur obs/LUTS Active 10/24/2018 HTN (hypertension), benign Active 10/24/2018 Vital Signs Date Time BP-Sys(mm[Hg] BP-Chata(mm[Hg]) HR(bpm) RR(rpm) Temp WT HT HC BMI BSA BMI Percentile O2 Sat(%) 11/24/2020 9:48:00 AM 180 mm[Hg] 104 mm[Hg] 80 {beats}/min 20 rpm 99 F 158 lbs 67 in 24.746 kg/m2 1.8406 m2 97 % 10/22/2020 9:40:00 AM 138 mm[Hg] 90 mm[Hg] 103 {beats}/min 18 rpm 98.4 F 162 lbs 66 in 26.15 kg/m2 1.85 m2 98 % 02/26/2020 8:41:00 AM 148 [...] Depo-Medrol 40mg Injection Reviewed 06/01/2018 12:00 AM [facility] MEDICARE - flu vaccine administratio n [...] AM MRI BRAIN STEM W/O & W/DYE Returned Results Summary Date and Description Results 07/20/2017 [...] Right Deltoid 06/01/2018 07/04/2020 158 Covid-19 09/25/2020 Modern[employer] MOD Moderna COVID-19 Vaccin e [id number] Intramuscular Right Arm 09/25/2020 06/03/2020 207 Covid-19 10/23/2020 Moderna [employer] MOD Moderna COVID-19 Vaccin e [id number] Intramuscular Right Arm 10/23/2020 06/03/2020 207 History [...] MRI of head Dec 11 2020 3:54PM Payers Insurance Name Company Name Plan Name Plan Number Policy Number [employer] Group Number Start Date Medicare RHC Medicare RHC [id number] N/ A Cigna Medicare Supplement Cigna Medicare Supplement [id number] N/A Medicare Part A Medicare - Lab/Xray [id number] N/A Medicare Part B Medicare Of [place] [id number] N/A History of Encounters Visit Date Visit Type Provider 11/24/2020 Office visit Keven Contreras APR N 10/23/2020 Nurse visit Keven Contreras APR N 10/22/2020 Office visit Keven Contreras APR N 09/25/2020 Nurse visit Keven Contreras APR N 02/26/2020 Office visit Cayla Claire PRN 02/18/2020 Office visit Cayla Claire PRN 02/14/2020 [facility] Jose Carmona MD 11/14/2019 Office visit Cayla Claire PRN 10/24/2018 Office visit Cayla Claire PRN 06/01/2018 Nurse visit Cayla Claire PRN 04/11/2018 Office visit Cayla Claire PRN 07/20/2017 Office visit 07/20/2017 Office visit Cayla Claire PRN 07/05/2017 Office visit Cayla Fang A PRN 04/13/2017 Office visit Cayla Claire PRN 03/15/2016 [facility] Jose Carmona MD
--- OUTSIDE RECORDS SUMMARY | 2021-02-07 01:00 | XMS REPORT ---
Author Author Danny Contreras Organization [facility] Address [address] [place], [place] [id number] Care Team Providers Care Pathology Technician Name Role Phone Keven Contreras PCP [...] Depo-Medrol 40mg Injection Reviewed 06/01/2018 12:00 AM [facility] MEDICARE - flu vaccine administratio n [...] [employer] MOD Moderna COVID-19 Vaccin e [id number] Intramuscular Right Arm 09/25/2020 06/03/2020 207 Covid-19 10/23/2020 Moderna [employer] MOD Moderna COVID-19 Vaccin e [id number] Intramuscular Right Arm 10/23/2020 06/03/2020 207 History [...] Number Start Date Medicare RHC Medicare RHC [id number] N/ A Cigna Medicare Supplement Cigna Medicare Supplement [id number] N/A Medicare Part A Medicare - Lab/Xray [id number] N/A Medicare Part B Medicare Of [place] [id number] N/A History of Encounters Visit Date Visit Type Provider 11/24/2020 Office visit Keven Contreras APR N 10/23/2020 Nurse visit Keven Contreras APR N 10/22/2020 Office visit Keven Contreras APR N 09/25/2020 Nurse visit Keven Contreras APR N 02/26/2020 Office visit Cayla Claire PRN 02/18/2020 Office visit Cayla Claire PRN 02/14/2020 [facility] Jose Carmona MD 11/14/2019 Office visit Cayla Claire PRN 10/24/2018 Office visit Cayla Claire PRN 06/01/2018 Nurse visit Cayla Claire PRN 04/11/2018 Office visit Cayla Claire PRN 07/20/2017 Office visit 07/20/2017 Office visit Cayla Claire PRN 07/05/2017 Office visit Cayla Fang A PRN 04/13/2017 Office visit Cayla Claire PRN 03/15/2016 [facility] Jose Carmona MD
== END ==
LOC: SDC 07:41
PROVIDERS: ATTEND Urology
DX: R33.8 Other retention of urine (principal); N40.1 Benign prostatic hyperplasia with lower urinary tract symptoms; Z79.899 Other long term (current) drug therapy